=== PATIENT | male | born 1935 | race Caucasian/White ===

== ENCOUNTER 2017-01-22 10:20 | Inpatient (IN) ==
--- NOTE | 2017-01-22 11:36 | History & Physical Report ---
<RichardAlejandrina Annmarie - Last Filed: 01/22/17 14:44> History of Present Illness Date: 01/22/17 Chief complaint: wound infection HPI: Lee Li is being admitted to swing bed status at [facility] for IV abx and PT/OT. Lee is an 81 y/o male who underwent transforaminal lumbar interbody fusion of L5-S1 and b/l foraminotomy of L3-L4 on 11/19/[address] Bryson. From there he went to rehab and was discharged on 12/10/16. He developed fevers and increased back pain around 12/12/16, and was admitted overnight and discharged without need of further management. He was found to have a draining seroma at the incision site on 12/22/16 and was taken back to the OR suite on 12/23/16. Cultures were negative at that time, but after several days reportedly grew out Enterococcus, which was overlooked according to Mireille, Lee's daughter/DPOA. After this admission, he was discharged back to his facility, until he developed fevers/ chills again around 01/11/17, and was admitted to [facility]. Per Mireille, he was in septic shock. He was diagnosed with E. faecalis septicemia d/t lumbar spine wound (infected seroma). CX + for coag neg staph also. He did not go back to the OR for debridement. Right sided PICC was placed for abx. Initially placed on Zosyn + vanco, as sensitivities were reported abx were changed per ID to Rocephin + Vanco for a 4-week course. He had fluid overload secondary to sepsis and hypoalbuminemia, and per Mireille was diuresed and also was given IV albumin. He's developed a "raspy voice" for the last few days , and was apparently evaluated by ENT while in [facility] - no concerning diagnosis was given. He denies any oral sores/dysphagia. He notes development of a mild erythemic rash to his face/forehead, typical of his RA, for which he takes Prednisone daily. He's had constipation and after getting Lactulose in [facility] on 01/21 had multiple BM. However, he's still bloated. He has been seeing improvement with therapy, but right hip pain is a limiting factor. 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 He denies any paresthesias. His back incision has healed well. He otherwise has seen marked improvement since abx were started. F/C have resolved, weakness is improving. Daughter describes encephalopathy, and this for the most part has resolved. However, she states that Percocet, MSO4, and Tramadol cause confusion (but he tolerates [place] well). He denies cough/congestion/dyspnea. No chest pain or abdominal pain. Denies dysuria, frequency, or incontinence. Review of Systems Comprehensive ROS: completed and no additional positive findings except those as stated - Constitutional Constitutional: Present: as per HPI - EENMT Nose: Present: as per HPI Mouth/Throat: Present: as per HPI - Cardiovascular Rhythm: Present: regular rhythm (pacemaker) - Respiratory Respiratory: Present: as per HPI - Gastrointestinal Gastrointestinal: Present: as per HPI - Genitourinary Genitourinary: Present: as per HPI - Musculoskeletal Musculoskeletal: Present: as per HPI - Neurological Neurological: Present: as per HPI - Psychiatric Psychiatric: Present: as per HPI - Hematologic/Lymphatic Hematologic/Lymphatic: Present: easy bleeding (on Xarelto) - Allergic/Immunologic Allergic/Immunologic: Present: seasonal rhinorrhea PFSH Sepsis secondary to Enterococcus septicemia s/p lumbar surgical wound infection RA - immunocompromised on chronic steroids Atrial fibrillation, anticoagulated on Xarelto Chronic HFpEF CAD PAD Sick Sinus Syndrome - PPM HTN Hypothyroidism Depression & anxiety COPD MATT on CPAP Surgical History: Rotator cuff repair. small bowel resection. Permanent pacemaker implant. transforaminal lumbar interbody fusion of L5-S1 and b/l foraminotomy of L3-L4 on 11/19/[address] Bryson. 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) Household members: spouse () Social history: Immunization -Pneumovax 23 in 2017 Medications Home Medications Medication Instructions Recorded Confirmed Type Albuterol/Ipratropium [Duoneb] 1 unit AEROSOL Q4H PRN 01/22/17 01/22/17 History Amlodipine [Norvasc] 1 tab PO BID 01/22/17 01/22/17 History Ascorbate Calcium [Calcium 1 gm PO DAILY 01/22/17 01/22/17 History Ascorbate] Aspirin 1 tab PO DAILY 01/22/17 01/22/17 History Budesonide 0.5 mg IH BID 01/22/17 01/22/17 History Ceftriaxone [Rocephin] 1 gram IV DAILY 01/22/17 01/22/17 History Cyanocobalamin/Folic AC/Vit B6 [B 1 each PO DAILY 01/22/17 01/22/17 History Complex-Folic Acid Tablet] Famotidine [Pepcid] 1 tab PO HS 01/22/17 01/22/17 History Fluticasone Nasal [place] [Flonase] 2 spray EA NOSTRIL DAILY 01/22/17 01/22/17 History Furosemide [Lasix] 1 tab PO DAILY 01/22/17 01/22/17 History Gabapentin [Neurontin] 100 mg PO TID 01/22/17 01/22/17 History Hydrocodone/APAP 5/325 [[place] 0.5 - 1 tab PO Q6H PRN MDD 4 01/22/17 01/22/17 History 5/325] tablets Iron Polysaccharide Complex 1 cap PO DAILY 01/22/17 01/22/17 History [Niferex] Levothyroxine Tab [Synthroid] 125 mcg PO ACB 01/22/17 01/22/17 History Magnesium Oxide [Magnesium] 1 tab PO DAILY 01/22/17 01/22/17 History Metoprolol Tartrate [Lopressor] 25 mg PO BIDWM 01/22/17 01/22/17 History PredniSONE [Deltasone] 1 tab PO 3XW 01/22/17 01/22/17 History PredniSONE [Deltasone] 7.5 mg PO 4XW 01/22/17 01/22/17 History Quetiapine [Seroquel] 1.5 tab PO HS 01/22/17 01/22/17 History Rivaroxaban [Xarelto] 20 mg PO WS 01/22/17 01/22/17 History Sertraline [Zoloft] 1.5 tab PO HS 01/22/17 01/22/17 History Timolol 0.5% Eye Drops [Timoptic 1 drop EACH EYE DAILY 01/22/17 01/22/17 History 0.5% Eye Drops] Vancomycin 750 mg/250 ml-D5w 750 mg IV DAILY 01/22/17 01/22/17 History Allergies Allergy/AdvReac Type Severity Reaction Status Date / Time haloperidol [From Haldol] AdvReac Difficulty Verified 01/22/17 14:35 Breathing morphine AdvReac Difficulty Verified 01/22/17 14:35 Breathing oxycodone [From Percocet] AdvReac Hypotension Verified 01/22/17 14:35 tramadol AdvReac Confusion Verified 01/22/17 14:35 Exam Height: 1.68 m Weight: 71.5 kg - Constitutional Present: no acute distress, well nourished, well developed, thin - Routine HEENT Exam Head: Present: normocephalic Eye: Present: PERRL. Absent: conjunctival icterus, scleral injection ENT: Present: mucous membranes moist, oropharynx clear (poss early thrush on tongue), nares patent - Routine Neck Exam Present: supple, trachea midline. Absent: lymphadenopathy - Routine Respiratory Exam Present: crackles (bibasilar - faint) - Routine Cardiovascular Exam Present: RRR, S1, S2 Comments: pacemaker - Routine Abdominal Exam Present: normoactive bowel sounds, non tender, distended - Routine Extremities Exam Present: no edema, pulses intact, normal capillary refill Comments: aracelis [place] b/l - Routine Back/Spine/Pelvis Exam Back image: 1 - back incision - healing well, closed, no drainage, no erythema, no warmth - Routine Skin Exam Present: intact, dry, warm, rash (faint erythemic rash to face) - Routine Neurological Exam Present: alert, oriented X3, motor deficit (left foot is weaker compared to right), vision grossly intact, hearing grossly intact, normal speech. Absent: sensory deficit, altered mental status - Routine Psychiatric Exam Present: normal affect, normal thought process, cooperative, good insight, good judgment Results - Labs CBC & Chem 7: 01/22/17 14:05 Assessment and Plan (1) Enterococcus faecalis infection Current visit: Yes Status: Acute DVT Prophylaxis: Xarelto Resuscitation Status: Full Code Assessment and Plan: ASSESSMENT/PLAN Admit - swing bed status for IV ceftriaxone and vancomycin through 02/11; PT/OT. Sepsis secondary to Enterococcus septicemia s/p lumbar surgical wound infection -seen by Dr. Vaughan at [facility] -ceftriaxone 1 gm q24 hrs (started 01/13); vancomycin 750 mg (started 01/15) - cont through 02/11. Right PICC. -PABLO showed no vegetation -request latest labs from [facility] -consult PT/OT -wound care not necessary Constipation with abdominal distention -improving per report -continue bowel motivation Possible thrush -high risk d/t prednisone, neb treatments, and abx -start Nystatin QID Chronic HFpEF, CAD, PAD, HTN, HLD -required extra diuresis at [facility] -daily weights and measure I&O -request PABLO report -furosemide 80 mg bid -spironolactone 50 mg daily -Metoprolol, amlodipine -Diet - no added salt, low fat, low cholesterol Atrial fibrillation/SSS -anticoagulated on Xarelto -continue BB -PPM Rheumatoid arthritis -immunocompromised on chronic steroids - Prednisone 5 mg MWF & 7.5 mg S,T,Th, Sat -mild erythemic rash to face/forehead -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 anemia -iron started while in [facility] per daughter Depression & anxiety -sertraline Allergic rhinitis -fluticasone Glaucoma -timolol maleate drops Allergies -Percocet, Haldol, Morphine, Tramadol - cause confusion/encephalopathy Advanced directives -daughter Mireille is DPOA -has a Living will -Full code. F/U appts with Dr. Boggs, Dr. Woods and Dr. Bryson will need to be rescheduled after discharge Hospital Course Summary Disclaimer: The visit summary below is not to be considered part of the above Progress Note. Hospital Course: 01/22/17 15:09 ASSESSMENT/PLAN Admit - swing bed status for IV ceftriaxone and vancomycin through 02/11; PT/OT. Sepsis secondary to Enterococcus septicemia s/p lumbar surgical wound infection -seen by Dr. Vaughan at [facility] -ceftriaxone 1 gm q24 hrs (started 01/13); vancomycin 750 mg (started 01/15) - cont through 02/11. Right PICC. -PABLO showed no vegetation -request latest labs from [facility] -consult PT/OT -wound care not necessary Constipation with abdominal distention -improving per report -continue bowel motivation Possible thrush -high risk d/t prednisone, neb treatments, and abx -start Nystatin QID Chronic HFpEF, CAD, PAD, HTN, HLD -required extra diuresis at [facility] -daily weights and measure I&O -request PABLO report -furosemide 80 mg bid -spironolactone 50 mg daily -Metoprolol, amlodipine -Diet - no added salt, low fat, low cholesterol Atrial fibrillation/SSS -anticoagulated on Xarelto -continue BB -PPM Rheumatoid arthritis -immunocompromised on chronic steroids - Prednisone 5 mg MWF & 7.5 mg S,T,Th, Sat -mild erythemic rash to face/forehead -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 anemia -iron started while in [facility] per daughter Depression & anxiety -sertraline Allergic rhinitis -fluticasone Glaucoma -timolol maleate drops Allergies -Percocet, Haldol, Morphine, Tramadol - cause confusion/encephalopathy Advanced directives -daughter Mireille is DPOA -has a Living will -Full code. F/U appts with Dr. Boggs, Dr. Woods and Dr. 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 Transient Ischemic Attacks ( Yes: 12 YEARS AGO TIA) Cataracts Yes: BOTH EYES Glaucoma Yes: BOTH EYES Hearing Loss Yes Macular Degeneration Yes: RIGHT EYE Cardiac Arrhythmia Yes: A-FIB Hypertension Yes Chronic Obstructive Pulmonary Yes Disease (COPD) Pneumonia Yes Pulmonary Edema Yes Sleep Apnea Yes Gastroesophageal Reflux Yes Disease Obstructive Bowel Yes Hx Renal Disease Yes: MILD STAGE II Anemia Yes Clotting Problems Yes Osteoarthritis Yes Sepsis Yes: HISTORY Anesthesia Reactions Yes: ENCEPHALOPATHY Exam Vital Signs: Pulse Rate 79 01/22/17 14:36 Respiratory Rate 16 01/22/17 14:36 Blood Pressure 137/80 01/22/17 14:36 Pulse Oximetry 99 01/22/17 14:36 Oxygen Delivery Method Room Air Height: 1.68 m Weight: 71.5 kg Results - Labs CBC & Chem 7: 01/22/17 14:05 Assessment and Plan (1) Enterococcus faecalis infection Current visit: Yes Status: Acute Assessment and Plan: 01/22/2017-I reviewed this chart, the patient history, and the [employer]'s/PA's documented findings as above. We discussed and formulated the assessment and plan as above with the additions below. I've seen and examined the patient independently-Dr. Toledo Patient was seen today accompanied by his daughter. He states he feels like he has been getting better after treatment with IV antibiotics. He describes recent problems with right hip pain which was evaluated by an orthopedic surgeon this past week at the [facility] and thought to be greater trochanteric bursitis. They have been treating with ionto-therapy with physical therapy. We will see if that is something we are able to continue here at [facility]. The patient states that it has been helping. He denies any other complaints other than some recent constipation which has resolved and some recent gas bloating which has resolved. He denies any shortness of breath, headache, chest pain, abdominal pain. He denies any vomiting or diarrhea. He states he has been getting up and walking with a walker and assistance. On exam he is alert and oriented 3 and in no acute distress. Chest is clear to auscultation. Cardiovascular reveals a regular rate and rhythm. Abdomen is soft , mildly distended, nontender, with positive bowel sounds. Extremities are free of edema. Lab on 01/19/2017 at the [facility] showed potassium of 3.4, glucose 156, BUN 42, creatinine 1.34, hemoglobin 9.4, hematocrit 28.4 Continue vancomycin and Rocephin as recommended by Dr. Vaughan for infected seroma with enterococcus for callus and coag-negative staph. Check CBC with differential, CMP and C-reactive protein today. Continue PT and OT. We'll consult Dr. Cabrera to see the patient on Wednesday for infectious disease follow-up. Hospital Course Summary Disclaimer: The visit summary below is not to be considered part of the above Progress Note.
[2017-01-22] MEDS ORDERED: ACETAMINOPHEN 325 MG TABLET PO PRN (12:01)
[2017-01-22] MEDS ORDERED: SENNOSIDES 8.6 MG TABLET PO PRN (12:01)
[2017-01-22] MEDS ORDERED: ONDANSETRON 4 MG/2 ML INJECTION IVP PRN (12:01)
[2017-01-22] MEDS ORDERED: HYDROCODONE/APAP 5mg/325mg TABLET PO PRN (12:01)
[2017-01-22 14:11] VITALS: BMI 25.4
[2017-01-22] MEDS ORDERED: FALL RISK - PHARMACY CONSULT MC PRN (14:46)
[2017-01-22] MEDS: NYSTATIN 500,000 units/5 ml ORAL LIQUID PO SCH ×3 (15:45→21:29)
[2017-01-22] MEDS: GABAPENTIN 100 MG CAPSULE PO SCH ×2 (15:45→21:29)
--- NOTE | 2017-01-22 15:54 | Pharmacy Consult-Antibiotics ---
Pharmacy Consult-Vancomycin - Laboratory Information Creatinine 1.5 MG/DL (0.8-1.5) 01/22/17 14:05 VANCOMYCIN CONSULT: Dx: Sepsis @nd to Enterococcus septicemia s/p lumbar surgical wound infection. Current Renal Fx: Serum Creatinine = 1.5 mg/dl. Estimated Creatinine Clearance ~ 36 mL/min. I started Vancomycin 1,250 mg IV q24hrs today. The computer model indicated that the 750 mg iv every 24 hours was underdosing. the pharmacy will continue to monitor the vancomycin troughs and the renal function and will adjust the vancomycin as needed. Thanks for the Vancomycin Protocol, Mj Garcia, Pharmacist.
[2017-01-22] MEDS: RIVAROXABAN 20 MG TABLET PO SCH (17:48)
[2017-01-22] MEDS: ALBUTEROL/IPRATROPIUM 2.5mg-0.5mg/3ml NEB AEROSOL PRN (19:15)
[2017-01-22] MEDS: BUDESONIDE INH.SOLN 0.5mg/2ml NEB IH SCH (19:16)
[2017-01-22] MEDS: QUETIAPINE 25 MG TABLET PO SCH (21:29)
[2017-01-22] MEDS: FAMOTIDINE 20 MG TABLET PO SCH (21:29)
[2017-01-22] MEDS: AMLODIPINE 5 MG TABLET PO SCH (21:29)
[2017-01-22] MEDS: SENNOSIDES 8.6 MG TABLET PO SCH (21:29)
[2017-01-22] MEDS: SERTRALINE 50 MG TABLET PO SCH (21:30)
[2017-01-23] MEDS: LEVOTHYROXINE 125 MCG TABLET PO SCH (06:29)
--- NOTE | 2017-01-23 07:47 | Pharmacy Consult-Antibiotics ---
Pharmacy Consult-Vancomycin - Laboratory Information WBC 4.8 T/MM3 (4.5-11.0) 01/23/17 04:21 BUN 55.0 MG/DL (9-20) H* 01/23/17 04:21 Creatinine 1.2 MG/DL (0.8-1.5) D 01/23/17 04:21 VANCOMYCIN SHORT REVIEW: Today's Serum Cr = 1.2 mg/dL. Calculated Creatinine Cl = 45 mL/min I will change the Vancomycin to 1,500 mg IV Q24hrs to achieve a trough around 15 mcg/mL. The patient has sepsis 2nd to Enterococcus septicemia s/p lumbar surgical wound infection. The pharmacy will continue to monitor the vancomycin troughs and the renal function and will adjust the vancomycin as needed. Thanks for the Vancomycin Protocol, Mj Garcia, Pharmacist.
[2017-01-23] MEDS: FUROSEMIDE 20 MG TABLET PO SCH (10:18)
[2017-01-23] MEDS: MAGNESIUM OXIDE 400 MG TABLET PO SCH (10:18)
[2017-01-23] MEDS: GABAPENTIN 100 MG CAPSULE PO SCH ×3 (10:18→22:06)
[2017-01-23] MEDS: FOLBIC TABLET PO SCH (10:19)
[2017-01-23] MEDS: AMLODIPINE 5 MG TABLET PO SCH ×2 (10:19→22:06)
[2017-01-23] MEDS: ASCORBIC ACID 500 MG TABLET PO SCH (10:19)
[2017-01-23] MEDS: PredniSONE 5 MG TABLET PO SCH (10:19)
[2017-01-23] MEDS: HYDROCODONE/APAP 5mg/325mg TABLET PO PRN ×2 (10:19→15:47)
[2017-01-23] MEDS: FLUTICASONE NASAL SPRAY 50mcg EA NOSTRIL SCH (10:20)
[2017-01-23] MEDS: ASPIRIN 81 MG CHEWABLE TABLET PO SCH (10:20)
[2017-01-23] MEDS: POLYETHYL GLYCOL 3350 17gm PACKET PO SCH (10:22)
[2017-01-23] MEDS: TIMOLOL 0.5% EYE DROPS 5 ML EACH EYE SCH (10:22)
[2017-01-23] MEDS: CEFTRIAXONE 1 G in NS 100 ML IV SCH (10:22)
[2017-01-23] MEDS: NYSTATIN 500,000 units/5 ml ORAL LIQUID PO SCH ×4 (10:22→22:06)
[2017-01-23] MEDS: IRON POLYSACCHARIDE COMPLEX 150 MG CAPSULE PO SCH (10:34)
--- NOTE | 2017-01-23 11:58 | Progress Note ---
Subjective: Feeling okay today, resting comfortably this morning in bed with resting on cot. No acute overnight events per nursing. Objective Vital signs: Temperature 96.5 F L 01/23/17 08:00 Pulse Rate 80 01/23/17 08:00 Respiratory Rate 18 01/23/17 10:53 Blood Pressure 147/82 H 01/23/17 08:00 Pulse Oximetry 100 01/23/17 10:53 Oxygen Delivery Method Room Air Height: 1.68 m Weight: 71.5 kg Body Mass Index: 25.4 - Constitutional Present: no acute distress, well nourished, well developed - Routine HEENT Exam Head: Present: normocephalic, atraumatic Eye: Present: EOMI, PERRL. Absent: conjunctival icterus ENT: Present: mucous membranes moist, oropharynx clear - Routine Respiratory Exam Present: CTA bilaterally. Absent: accessory muscle use, respiratory distress - Routine Cardiovascular Exam Present: RRR. Absent: murmur - Routine Abdominal Exam Present: soft, non distended, non tender - Routine Extremities Exam Present: non tender. Absent: edema - Routine Skin Exam Present: intact, dry. Absent: rash - Routine Neurological Exam Present: alert, oriented X3 - Routine Psychiatric Exam Present: normal affect Results - Labs CBC & Chem 7: 01/23/17 04:21 01/23/17 04:21 Assessment and Plan DVT Prophylaxis: Xarelto Resuscitation Status: Full Code Assessment and Plan: 01/23/2017--[place] Impression: S/P laminectomy with infected seroma and sepsis requiring IV antibiotic therapy --> cultures with enterococcus faecalis and coag negative staph --> currently on vancomycin and rocephin, Dr. Vaughan has been seeing for ID previously --> PABLO negative Right hip pain attributed to trochanteric bursitis with recent ortho evaluation Hypercalcemia, Ca 10.2 CKD presumably, cr 1.2 today, unclear renal baseline (was 1.5 no admission here) CAD per history, asymptomatic currently Afib, paroxysmal, rate controlled and AC with xarelto Normocytic anemia, likely ACD as well as iron deficiency, with stable Hb 10.5, on po iron Chronic steroid use on prednisone 7.5 mg/5 mg alternating days, history of RA Chronic constipation, improved Depression and anxiety, controlled on sertraline Hypothyroidism, stable on synthroid therapy Plan/Recommendations: Continue current antibiotic therapy and monitor WBC, intermittent CRP Hold low dose lasix and monitor volume status, BUN, calcium Continue home medications for afib, RA, CAD as ordered Renal panel, CBC in AM tomorrow for surveillance Continue vanco/rocephin as ordered and monitor vanco levels Continue home medications as above for chronic conditions Plan to consult Dr. Cabrera for ID opinion and surveillance on Wednesday Discussed with bedside RN and family. Sepsis Assessment - Evaluation Sepsis screening result: No Definite Risk Hospital Course Summary Disclaimer: The visit summary below is not to be considered part of the above Progress Note. Hospital Course: 01/22/17 15:09 ASSESSMENT/PLAN Admit - swing bed status for IV ceftriaxone and vancomycin through 02/11; PT/OT. Sepsis secondary to Enterococcus septicemia s/p lumbar surgical wound infection -seen by Dr. Vaughan at [facility] -ceftriaxone 1 gm q24 hrs (started 01/13); vancomycin 750 mg (started 01/15) - cont through 02/11. Right PICC. -PABLO showed no vegetation -request latest labs from [facility] -consult PT/OT -wound care not necessary Constipation with abdominal distention -improving per report -continue bowel motivation Possible thrush -high risk d/t prednisone, neb treatments, and abx -start Nystatin QID Chronic HFpEF, CAD, PAD, HTN, HLD -required extra diuresis at [facility] -daily weights and measure I&O -request PABLO report -furosemide 80 mg bid -spironolactone 50 mg daily -Metoprolol, amlodipine -Diet - no added salt, low fat, low cholesterol Atrial fibrillation/SSS -anticoagulated on Xarelto -continue BB -PPM Rheumatoid arthritis -immunocompromised on chronic steroids - Prednisone 5 mg MWF & 7.5 mg S,T,Th, Sat -mild erythemic rash to face/forehead -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 anemia -iron started while in [facility] per daughter Depression & anxiety -sertraline Allergic rhinitis -fluticasone Glaucoma -timolol maleate drops Allergies -Percocet, Haldol, Morphine, Tramadol - cause confusion/encephalopathy Advanced directives -daughter Mireille is DPOA -has a Living will -Full code. F/U appts with Dr. Boggs, Dr. Woods and Dr. Bryson will need to be rescheduled after discharge 01/23/17 [place] Impression: S/P laminectomy with infected seroma and sepsis requiring IV antibiotic therapy --> cultures with enterococcus faecalis and coag negative staph --> currently on vancomycin and rocephin, Dr. Vaughan has been seeing for ID previously --> PABLO negative Right hip pain attributed to trochanteric bursitis with recent ortho evaluation Hypercalcemia, Ca 10.2 CKD presumably, cr 1.2 today, unclear renal baseline (was 1.5 no admission here) CAD per history, asymptomatic currently Afib, paroxysmal, rate controlled and AC with xarelto Normocytic anemia, likely ACD as well as iron deficiency, with stable Hb 10.5, on po iron Chronic steroid use on prednisone 7.5 mg/5 mg alternating days, history of RA Chronic constipation, improved Depression and anxiety, controlled on sertraline Hypothyroidism, stable on synthroid therapy Plan/Recommendations: Continue current antibiotic therapy and monitor WBC, intermittent CRP Hold low dose lasix and monitor volume status, BUN, calcium Continue home medications for afib, RA, CAD as ordered Renal panel, CBC in AM tomorrow for surveillance Continue vanco/rocephin as ordered and monitor vanco levels Continue home medications as above for chronic conditions Plan to consult Dr. Cabrera for ID opinion and surveillance on Wednesday
[2017-01-23] MEDS: BUDESONIDE INH.SOLN 0.5mg/2ml NEB IH SCH ×2 (14:03→19:26)
[2017-01-23] MEDS ORDERED: SODIUM CHLORIDE 5% EYE DROP 15ml EACH EYE PRN (17:12)
[2017-01-23] MEDS: RIVAROXABAN 20 MG TABLET PO SCH (17:27)
[2017-01-23] MEDS: ALBUTEROL/IPRATROPIUM 2.5mg-0.5mg/3ml NEB AEROSOL PRN (19:26)
[2017-01-23] MEDS: SERTRALINE 50 MG TABLET PO SCH (22:06)
[2017-01-23] MEDS: SENNOSIDES 8.6 MG TABLET PO SCH (22:07)
[2017-01-23] MEDS: QUETIAPINE 25 MG TABLET PO SCH (22:07)
[2017-01-23] MEDS: FAMOTIDINE 20 MG TABLET PO SCH (22:08)
[2017-01-24] MEDS: LEVOTHYROXINE 125 MCG TABLET PO SCH (05:51)
[2017-01-24] MEDS: IRON POLYSACCHARIDE COMPLEX 150 MG CAPSULE PO SCH (09:11)
[2017-01-24] MEDS: MAGNESIUM OXIDE 400 MG TABLET PO SCH (09:11)
[2017-01-24] MEDS: PredniSONE 5 MG TABLET PO SCH (09:11)
[2017-01-24] MEDS: FOLBIC TABLET PO SCH (09:11)
[2017-01-24] MEDS: AMLODIPINE 5 MG TABLET PO SCH ×2 (09:12→21:05)
[2017-01-24] MEDS: ASPIRIN 81 MG CHEWABLE TABLET PO SCH (09:12)
[2017-01-24] MEDS: GABAPENTIN 100 MG CAPSULE PO SCH ×3 (09:12→21:05)
[2017-01-24] MEDS: ASCORBIC ACID 500 MG TABLET PO SCH (09:12)
[2017-01-24] MEDS: CEFTRIAXONE 1 G in NS 100 ML IV SCH (09:13)
[2017-01-24] MEDS: NYSTATIN 500,000 units/5 ml ORAL LIQUID PO SCH ×4 (09:13→21:08)
[2017-01-24] MEDS: POLYETHYL GLYCOL 3350 17gm PACKET PO SCH (09:14)
[2017-01-24] MEDS: TIMOLOL 0.5% EYE DROPS 5 ML EACH EYE SCH (09:14)
[2017-01-24] MEDS: FLUTICASONE NASAL SPRAY 50mcg EA NOSTRIL SCH (09:14)
[2017-01-24] MEDS: FUROSEMIDE 20 MG TABLET PO SCH (09:17)
[2017-01-24] MEDS: HYDROCODONE/APAP 5mg/325mg TABLET PO PRN (10:23)
[2017-01-24] MEDS: ALBUTEROL/IPRATROPIUM 2.5mg-0.5mg/3ml NEB AEROSOL PRN ×2 (11:11→18:46)
[2017-01-24] MEDS: BUDESONIDE INH.SOLN 0.5mg/2ml NEB IH SCH ×2 (11:11→18:46)
--- NOTE | 2017-01-24 11:26 | Progress Note ---
<Alejandrina Ramos - Last Filed: 01/24/17 11:23> Subjective: Lee is doing well. He denies any new complaints. His daughter, Mireille, has been spending the nights with him. She has no concerns either, but added that she doesn't think he drinks enough fluids. He has ongoing right hip pain, and they' re waiting to hear if we can provide iontophoresis. Constipation has resolved. Denies seeing any blood in his stools, no melena, no hematemesis. Objective Vital signs: Temperature 95.6 F L 01/24/17 08:00 Pulse Rate 79 01/24/17 08:00 Respiratory Rate 16 01/24/17 08:00 Blood Pressure 136/76 01/24/17 08:00 Pulse Oximetry 98 01/24/17 08:00 Oxygen Delivery Method Room Air Oxygen Flow Rate 1 Weight: 71.7 kg - Constitutional Present: no acute distress, well nourished, well developed, thin - Routine HEENT Exam ENT: Present: mucous membranes moist, oropharynx clear - Routine Respiratory Exam Present: CTA bilaterally - Routine Cardiovascular Exam Present: RRR, S1, S2 - Routine Abdominal Exam Present: soft, normoactive bowel sounds, non tender, distended (minimal - improved) - Routine Extremities Exam Present: no edema, pulses intact, normal capillary refill - Routine Musculoskeletal Exam Musculoskeletal: Present: no erythema - Routine Skin Exam Present: intact, dry, warm - Routine Neurological Exam Present: alert, oriented X3, CN II-XII intact - Routine Psychiatric Exam Present: normal affect, normal thought process, cooperative Results - Labs CBC & Chem 7: 01/24/17 04:38 01/24/17 04:38 Assessment and Plan Assessment and Plan: 01/23/2017--[place] Impression: S/P laminectomy with infected seroma and sepsis requiring IV antibiotic therapy --> cultures with enterococcus faecalis and coag negative staph --> currently on vancomycin and Rocephin, Dr. Vaughan has been seeing for ID previously --> PABLO negative Right hip pain attributed to trochanteric bursitis with recent ortho evaluation Hypercalcemia CKD presumably, unclear renal baseline (was 1.5 on admission here) CAD per history, asymptomatic currently Afib, paroxysmal, rate controlled and AC with xarelto Macrocytic anemia, likely ACD as well as iron deficiency, with stable Hb, on po iron Chronic steroid use on prednisone 7.5 mg/5 mg alternating days, history of RA Chronic constipation, improved Depression and anxiety, controlled on sertraline Hypothyroidism, stable on Synthroid therapy Plan/Recommendations: Continue Vanc and Rocephin through 02/11/17 Elevated BUN (sl improvement from yesterday) - continue to hold Lasix; encourage oral. No evidence for GI bleed that could potentially explain inc in BUN. Calcium 10 - sl improved Macrocytic anemia - check B12 & folate Plan to consult Dr. Cabrera on Wednesday Sepsis Assessment - Evaluation Sepsis screening result: No Definite Risk Hospital Course Summary Disclaimer: The visit summary below is not to be considered part of the above Progress Note. Hospital Course: 01/22/17 ASSESSMENT/PLAN Admit - swing bed status for IV ceftriaxone and vancomycin through 02/11; PT/OT. Sepsis secondary to Enterococcus septicemia s/p lumbar surgical wound infection -seen by Dr. Vaughan at [facility] -ceftriaxone 1 gm q24 hrs (started 01/13); vancomycin 750 mg (started 01/15) - cont through 02/11. Right PICC. -PABLO showed no vegetation -request latest labs from [facility] -consult PT/OT -wound care not necessary Constipation with abdominal distention -improving per report -continue bowel motivation Possible thrush -high risk d/t prednisone, neb treatments, and abx -start Nystatin QID Chronic HFpEF, CAD, PAD, HTN, HLD -required extra diuresis at [facility] -daily weights and measure I&O -request PABLO report -furosemide 80 mg bid -spironolactone 50 mg daily -Metoprolol, amlodipine -Diet - no added salt, low fat, low cholesterol Atrial fibrillation/SSS -anticoagulated on Xarelto -continue BB -PPM Rheumatoid arthritis -immunocompromised on chronic steroids - Prednisone 5 mg MWF & 7.5 mg S,T,Th, Sat -mild erythemic rash to face/forehead -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 anemia -iron started while in [facility] per daughter Depression & anxiety -sertraline Allergic rhinitis -fluticasone Glaucoma -timolol maleate drops Allergies -Percocet, Haldol, Morphine, Tramadol - cause confusion/encephalopathy Advanced directives -daughter Mireille is DPOA -has a Living will -Full code. F/U appts with Dr. Boggs, Dr. Woods and Dr. Bryson will need to be rescheduled after discharge 01/23/17 [place] S/P laminectomy with infected seroma and sepsis requiring IV antibiotic therapy --> cultures with enterococcus faecalis and coag negative staph --> currently on vancomycin and rocephin, Dr. Vaughan has been seeing for ID previously --> PABLO negative Right hip pain attributed to trochanteric bursitis with recent ortho evaluation Hypercalcemia, Ca 10.2 CKD presumably, cr 1.2 today, unclear renal baseline (was 1.5 no admission here) CAD per history, asymptomatic currently Afib, paroxysmal, rate controlled and AC with xarelto Normocytic anemia, likely ACD as well as iron deficiency, with stable Hb 10.5, on po iron Chronic steroid use on prednisone 7.5 mg/5 mg alternating days, history of RA Chronic constipation, improved Depression and anxiety, controlled on sertraline Hypothyroidism, stable on synthroid therapy Plan/Recommendations: Continue current antibiotic therapy and monitor WBC, intermittent CRP Hold low dose lasix and monitor volume status, BUN, calcium Continue home medications for afib, RA, CAD as ordered Renal panel, CBC in AM tomorrow for surveillance Continue vanco/rocephin as ordered and monitor vanco levels Continue home medications as above for chronic conditions Plan to consult Dr. Cabrera for ID opinion and surveillance on Wednesday01/24/17 Continue Vanc and Rocephin through 02/11/17 Elevated BUN (sl improvement from yesterday) - continue to hold Lasix; encourage oral. No evidence for GI bleed that could potentially explain inc in BUN. Calcium 10 - sl improved Macrocytic anemia - check B12 & folate <Catalina Ochoa - Last Filed: 01/24/17 12:22> Objective Vital signs: Temperature 95.6 F L 01/24/17 08:00 Pulse Rate 79 01/24/17 08:00 Respiratory Rate 16 01/24/17 11:10 Blood Pressure 136/76 01/24/17 08:00 Pulse Oximetry 96 01/24/17 11:10 Oxygen Delivery Method Room Air Oxygen Flow Rate 1 Results - Labs CBC & Chem 7: 01/24/17 04:38 01/24/17 04:38 Assessment and Plan Assessment and Plan: Patient was seen and examined independent of Alejandrina. Feeling well outside of hip pain. His daughter has been staying with him. Labs, vitals, I/Os and orders reviewed in the chart. Agree with holding diuretics and encouraging po intake. Will continue antibiotics and monitor, await Dr. Cabrera' opinion on Wednesday. Hospital Course Summary Disclaimer: The visit summary below is not to be considered part of the above Progress Note.
[2017-01-24] MEDS: RIVAROXABAN 20 MG TABLET PO SCH (16:31)
[2017-01-24] MEDS: SERTRALINE 50 MG TABLET PO SCH (21:05)
[2017-01-24] MEDS: SENNOSIDES 8.6 MG TABLET PO SCH (21:05)
[2017-01-24] MEDS: QUETIAPINE 25 MG TABLET PO SCH (21:06)
[2017-01-24] MEDS: FAMOTIDINE 20 MG TABLET PO SCH (21:08)
[2017-01-25] MEDS: LEVOTHYROXINE 125 MCG TABLET PO SCH (05:45)
--- NOTE | 2017-01-25 09:06 | Infectious Disease Consult ---
Infectious Disease Consult Date of Consultation: 01/25/17 Requesting Physician: Sofie Toledo Reason for Consultation: antibiotic recs History of Present Illness: Mr. Li is an 81 y/o man with a h/o RA on chronic prednisone, and h/o pacemaker placement, who underwent L5-S1 lumbar fusion with bilateral foraminotomy of L3-L4 by Dr. Bryson on 11/19/16. He went to rehab in [place] following that surgery, and was discharged home. He was readmitted to the hospital in [place] 2 days later with fevers and chills. He was discharged home. On 12/22 he was readmitted for draining seroma at the incision site. He was taken to the OR on 12/23 for drainage of the seroma. The culture was thought to be negative, however it grew E. faecalis sensitive to Amp and Vancomycin. There was some growth of CoNs in the broth per records. He was found to have septicemia with a blood culture positive for E. faecalis from . The enterococcus from the blood culture was resistant to ampicillin per records. Blood cultures 01/14 were negative. PABLO was negative. He was started on ceftriaxone on 01/13 and Vancomycin on 01/15. He was seen by Dr. Vaughan in [facility], and his plan was to continue these two antibiotics for 4 weeks, through . The patient's daughter reports that he was very ill for awhile and was hypoxic. His fevers and chills have resolved. He continues to have back pain and R hip pain, but both are mostly present with movement only. He tells me he can't really walk, but his daughter states that he can, with the help of a gait belt and a walker. He currently feels well. Medications Home Medications Medication Instructions Recorded Confirmed Type Albuterol/Ipratropium [Duoneb] 1 unit AEROSOL Q4H PRN 01/22/17 01/22/17 History Amlodipine [Norvasc] 1 tab PO BID 01/22/17 01/22/17 History Ascorbate Calcium [Calcium 1 gm PO DAILY 01/22/17 01/22/17 History Ascorbate] Aspirin 1 tab PO DAILY 01/22/17 01/22/17 History Budesonide 0.5 mg IH BID 01/22/17 01/22/17 History Ceftriaxone [Rocephin] 1 gram IV DAILY 01/22/17 01/22/17 History Cyanocobalamin/Folic AC/Vit B6 [B 1 each PO DAILY 01/22/17 01/22/17 History Complex-Folic Acid Tablet] Famotidine [Pepcid] 1 tab PO HS 01/22/17 01/22/17 History Fluticasone Nasal [place] [Flonase] 2 spray EA NOSTRIL DAILY 01/22/17 01/22/17 History Furosemide [Lasix] 1 tab PO DAILY 01/22/17 01/22/17 History Gabapentin [Neurontin] 100 mg PO TID 01/22/17 01/22/17 History Hydrocodone/APAP 5/325 [[place] 0.5 - 1 tab PO Q6H PRN MDD 4 01/22/17 01/22/17 History 5/325] tablets Iron Polysaccharide Complex 1 cap PO DAILY 01/22/17 01/22/17 History [Niferex] Levothyroxine Tab [Synthroid] 125 mcg PO ACB 01/22/17 01/22/17 History Magnesium Oxide [Magnesium] 1 tab PO DAILY 01/22/17 01/22/17 History Metoprolol Tartrate [Lopressor] 25 mg PO BIDWM 01/22/17 01/22/17 History PredniSONE [Deltasone] 1 tab PO 3XW 01/22/17 01/22/17 History PredniSONE [Deltasone] 7.5 mg PO 4XW 01/22/17 01/22/17 History Quetiapine [Seroquel] 1.5 tab PO HS 01/22/17 01/22/17 History Rivaroxaban [Xarelto] 20 mg PO WS 01/22/17 01/22/17 History Sertraline [Zoloft] 1.5 tab PO HS 01/22/17 01/22/17 History Timolol 0.5% Eye Drops [Timoptic 1 drop EACH EYE DAILY 01/22/17 01/22/17 History 0.5% Eye Drops] Vancomycin 750 mg/250 ml-D5w 750 mg IV DAILY 01/22/17 01/22/17 History Allergies Allergy/AdvReac Type Severity Reaction Status Date / Time haloperidol [From Haldol] AdvReac Difficulty Verified 01/22/17 14:35 Breathing morphine AdvReac Difficulty Verified 01/22/17 14:35 Breathing oxycodone [From Percocet] AdvReac Hypotension Verified 01/22/17 14:35 tramadol AdvReac Confusion Verified 01/22/17 14:35 PFSH Patient Stated Medical History 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 small bowel resection. Permanent pacemaker implant. transforaminal lumbar interbody fusion of L5-S1 and b/l foraminotomy of L3-L4 on 11/19/[address] Bryson, I&D of lumbar incision seroma . Drainage of seroma on 12/23/16 Family History: Mother had heart disease, father had prostate cancer - Social History Smoking status: Former smoker Substance use type: does not use Alcohol intake: former Household members: children (son) Current residence: Assisted Review of Systems - Constitutional Constitutional: Absent: chills, fever(s), headache(s) - EENMT Eyes: Absent: change in vision Mouth/Throat: Absent: sore throat - Cardiovascular Cardiovascular: Absent: chest pain - Respiratory Respiratory: Absent: dyspnea - Gastrointestinal Gastrointestinal: Present: constipation. Absent: abdominal pain, diarrhea, nausea, vomiting - Genitourinary Genitourinary: Absent: dysuria - Musculoskeletal Musculoskeletal: Present: arthralgias (due to RA), back pain - Integumentary/Breasts Integumentary: Absent: rash - Neurological Neurological: Absent: dizziness, headache(s) - Psychiatric Psychiatric: Absent: depression Exam Vital Signs: Temperature 96 F L 01/25/17 07:31 Pulse Rate 79 01/25/17 07:31 Respiratory Rate 20 01/25/17 07:31 Blood Pressure 152/86 H 01/25/17 07:31 Pulse Oximetry 99 01/25/17 07:31 Oxygen Delivery Method CPAP Oxygen Flow Rate 1 Height: 1.68 m Weight: 72.7 kg Body Mass Index: 25.4 - Constitutional Present: no acute distress, well nourished, well developed - Routine HEENT Exam Head: Present: normocephalic, atraumatic Eye: Present: EOMI, PERRL ENT: Present: mucous membranes moist, dentition normal - Routine Neck Exam Present: supple - Routine Respiratory Exam Absent: CTA bilaterally - Routine Cardiovascular Exam Present: RRR. Absent: murmur - Routine Abdominal Exam Present: soft, normoactive bowel sounds, non distended. Absent: tenderness, guarding - Routine Extremities Exam Present: edema (trace edema LLE). Absent: joint swelling - Routine Back/Spine/Pelvis Exam Back/Spine: Absent: erythema Comments: wearing gait belt, lumbar incision appears to be intact - Routine Skin Exam Absent: rash Comments: RUE PICC site ok - Routine Neurological Exam Present: alert, oriented X3, CN II-XII intact - Routine Psychiatric Exam Present: normal affect, normal thought process Results - Labs CBC & Chem 7: 01/25/17 04:19 01/25/17 04:19 - Impressions CT L/S without contrast 01/12 showed postoperative changes, fluid and diffuse strandy changes and several small collections of air which may be post- operative vs infectious. Impression: Sepsis secondary to post-operative lumbar wound infection. Septicemia with E. faecalis, R-ampicillin. PABLO negative. S/p I&D of lumbar wound 12/23/16, wound culture with E. faecalis S-ampicillin, CoNS in broth. S/p L5-S1 lumbar fusion with foraminotomy of L3-4 11/19/[address] Bryson. Rheumatoid arthritis on chronic prednisone. Atrial fibrillation S/p pacemaker. Hypothyroidism. Recommendation: I would recommend continuing with Vancomycin and ceftriaxone through 02/[address] Vaughan. I would also recommend continuing with the Vancomycin through 02/24/17. This would complete a 6-week course which would cover for osteomyelitis/deep post-operative infection with hardware. My recommendations were discussed with the patient, his daughter, and Dr. Gutierrez. Sepsis Assessment - Evaluation Sepsis screening result: No Definite Risk
[2017-01-25] MEDS: ALBUTEROL/IPRATROPIUM 2.5mg-0.5mg/3ml NEB AEROSOL PRN ×2 (09:29→19:20)
[2017-01-25] MEDS: BUDESONIDE INH.SOLN 0.5mg/2ml NEB IH SCH ×2 (09:29→19:20)
[2017-01-25] MEDS: CEFTRIAXONE 1 G in NS 100 ML IV SCH (09:45)
[2017-01-25] MEDS: AMLODIPINE 5 MG TABLET PO SCH ×2 (09:46→22:36)
[2017-01-25] MEDS: GABAPENTIN 100 MG CAPSULE PO SCH ×3 (09:46→22:33)
[2017-01-25] MEDS: FUROSEMIDE 20 MG TABLET PO SCH (09:46)
[2017-01-25] MEDS: FOLBIC TABLET PO SCH (09:46)
[2017-01-25] MEDS: MAGNESIUM OXIDE 400 MG TABLET PO SCH (09:46)
[2017-01-25] MEDS: IRON POLYSACCHARIDE COMPLEX 150 MG CAPSULE PO SCH (09:47)
[2017-01-25] MEDS: NYSTATIN 500,000 units/5 ml ORAL LIQUID PO SCH ×4 (09:47→22:29)
[2017-01-25] MEDS: ASPIRIN 81 MG CHEWABLE TABLET PO SCH (09:52)
[2017-01-25] MEDS: TIMOLOL 0.5% EYE DROPS 5 ML EACH EYE SCH (09:53)
[2017-01-25] MEDS: POLYETHYL GLYCOL 3350 17gm PACKET PO SCH (09:54)
[2017-01-25] MEDS: ASCORBIC ACID 500 MG TABLET PO SCH (09:54)
[2017-01-25] MEDS: PredniSONE 5 MG TABLET PO SCH (09:57)
[2017-01-25] MEDS: FLUTICASONE NASAL SPRAY 50mcg EA NOSTRIL SCH (09:57)
--- NOTE | 2017-01-25 12:26 | Progress Note ---
<Alejandrina Ramos - Last Filed: 01/25/17 13:28> Subjective: Lee has no new complaints. His daughter Mireille is here, as usual. She inquired about speech therapy - she would like them to assess him b/c of his hoarse voice , which actually has been sounding a bit better. His right hip pain is nonexistent when at rest, but quickly becomes severe with PT. Mireille noticed slight confusion yesterday, but hasn't noticed that as much today. Objective Vital signs: Temperature 96 F L 01/25/17 07:31 Pulse Rate 79 01/25/17 07:31 Respiratory Rate 16 01/25/17 09:20 Blood Pressure 152/86 H 01/25/17 07:31 Pulse Oximetry 100 01/25/17 09:20 Oxygen Delivery Method CPAP Oxygen Flow Rate 1 Body Mass Index: 25.4 - Constitutional Present: no acute distress, well nourished, well developed, thin - Routine HEENT Exam Eye: Absent: conjunctival icterus, scleral injection ENT: Present: mucous membranes moist, oropharynx clear Comments: voice is not as hoarse today - Routine Respiratory Exam Present: CTA bilaterally - Routine Abdominal Exam Present: non tender, distended. Absent: normoactive bowel sounds (hypoactive) - Routine Extremities Exam Present: no edema, pulses intact, normal capillary refill - Routine Back/Spine/Pelvis Exam Comments: well healed incision to lumbar - Routine Musculoskeletal Exam Musculoskeletal: Present: other (RA changes to hands) - Routine Skin Exam Present: intact, dry, warm - Routine Neurological Exam Present: alert, oriented X3 - Routine Psychiatric Exam Present: normal affect, normal thought process, cooperative Results - Labs CBC & Chem 7: 01/25/17 04:19 01/25/17 04:19 Assessment and Plan (1) Enterococcus faecalis infection Current visit: Yes Status: Acute DVT Prophylaxis: Xarelto Resuscitation Status: Full Code Assessment and Plan: Assessment Sepsis secondary to Enterococcus septicemia s/p lumbar surgical wound infection FA Chronic HFpEF, CAD, PAD, HTN, HLD A-fib, SSS Constipation Macrocytic anemia - B12, folate nl Plan -ceftriaxone 1 gm q24 hrs (started 01/13); vancomycin 750 mg (started 01/15) - cont through 02/11. CRP declining. -Dr. Cabrera recommending to continue vancomycin for a total of 6 weeks, through . -consult Speech therapy -BUN still elevated but improving - down to 50 - encourage oral fluids. Cont to hold Lasix; monitor for fl overload. -constipation - hypoactive bowel sounds and increasing distention; concern for ileus - start Senna+ & MOM PRN in addition to MiraLAX; add dulc supp PRN. KUB if sx not improving. Sepsis Assessment - Evaluation Sepsis screening result: No Definite Risk Hospital Course Summary Disclaimer: The visit summary below is not to be considered part of the above Progress Note. Hospital Course: 01/22/17 ASSESSMENT/PLAN Admit - swing bed status for IV ceftriaxone and vancomycin through 02/11; PT/OT. Sepsis secondary to Enterococcus septicemia s/p lumbar surgical wound infection -seen by Dr. Vaughan at [facility] -ceftriaxone 1 gm q24 hrs (started 01/13); vancomycin 750 mg (started 01/15) - cont through 02/11. Right PICC. -PABLO showed no vegetation -request latest labs from [facility] -consult PT/OT -wound care not necessary Constipation with abdominal distention -improving per report -continue bowel motivation Possible thrush -high risk d/t prednisone, neb treatments, and abx -start Nystatin QID Chronic HFpEF, CAD, PAD, HTN, HLD -required extra diuresis at [facility] -daily weights and measure I&O -request PABLO report -furosemide 80 mg bid -spironolactone 50 mg daily -Metoprolol, amlodipine -Diet - no added salt, low fat, low cholesterol Atrial fibrillation/SSS -anticoagulated on Xarelto -continue BB -PPM Rheumatoid arthritis -immunocompromised on chronic steroids - Prednisone 5 mg MWF & 7.5 mg S,T,Th, Sat -mild erythemic rash to face/forehead -pneumatic jacketer in [facility] Hypothyroidism -Synthroid 125 mcg daily MATT on CPAP, COPD -has been needing 1L at night -RT nebs; IS Iron def. anemia -iron started while in [facility] per daughter Depression & anxiety -sertraline Allergic rhinitis -fluticasone Glaucoma -timolol maleate drops Allergies -Percocet, Haldol, Morphine, Tramadol - cause confusion/encephalopathy Advanced directives -daughter Mireille is DPOA -has a Living will -Full code. F/U appts with Dr. Boggs, Dr. Woods and Dr. Bryson will need to be rescheduled after discharge 01/23/17 [place] S/P laminectomy with infected seroma and sepsis requiring IV antibiotic therapy --> cultures with enterococcus faecalis and coag negative staph --> currently on vancomycin and rocephin, Dr. Vaughan has been seeing for ID previously --> PABLO negative Right hip pain attributed to trochanteric bursitis with recent ortho evaluation Hypercalcemia, Ca 10.2 CKD presumably, cr 1.2 today, unclear renal baseline (was 1.5 on admission here) CAD per history, asymptomatic currently Afib, paroxysmal, rate controlled and AC with xarelto Normocytic anemia, likely ACD as well as iron deficiency, with stable Hb 10.5, on po iron Chronic steroid use on prednisone 7.5 mg/5 mg alternating days, history of RA Chronic constipation, improved Depression and anxiety, controlled on sertraline Hypothyroidism, stable on synthroid therapy Plan/Recommendations: Continue current antibiotic therapy and monitor WBC, intermittent CRP Hold low dose lasix and monitor volume status, BUN, calcium Continue home medications for afib, RA, CAD as ordered Renal panel, CBC in AM tomorrow for surveillance Continue vanco/rocephin as ordered and monitor vanco levels Continue home medications as above for chronic conditions Plan to consult Dr. Cabrera for ID opinion and surveillance on Wednesday01/24/17 Continue Vanc and Rocephin through 02/11/17 Elevated BUN (sl improvement from yesterday) - continue to hold Lasix; encourage oral. No evidence for GI bleed that could potentially explain inc in BUN. Calcium 10 - sl improved Macrocytic anemia - check B12 & folate 01/25/17 -Dr. Cabrera recommending to continue vancomycin for a total of 6 weeks, through . -consult Speech therapy -BUN still elevated but improving - down to 50 - encourage oral fluids. Cont to hold Lasix; monitor for fl overload. -constipation - hypoactive bowel sounds and increasing distention; concern for ileus - start Senna+ & MOM PRN in addition to MiraLAX; add dulc supp PRN. KUB if sx not improving. <Jero Gutierrez - Last Filed: 01/25/17 16:14> Objective Vital signs: Temperature 98.1 F 01/25/17 15:51 Pulse Rate 76 01/25/17 15:00 Respiratory Rate 20 08/14/17 15:00 Blood Pressure 131/74 01/25/17 15:00 Pulse Oximetry 96 01/25/17 15:00 Oxygen Delivery Method Room Air Oxygen Flow Rate 98 Results - Labs CBC & Chem 7: 01/25/17 04:19 01/25/17 04:19 Assessment and Plan (1) Enterococcus faecalis infection Current visit: Yes Status: Acute Assessment and Plan: Assessment Sepsis secondary to Enterococcus septicemia s/p lumbar surgical wound infection FA Chronic HFpEF, CAD, PAD, HTN, HLD A-fib, SSS Constipation Macrocytic anemia - B12, folate nl Have independently interviewed and examined pt. Chart reviewed. Case discussed with my [employer]. Care plan developed with my supervision; agree with above. Having a good day today. Pain better-able to move more. Feels more encouraged about being able to move. Breathing stable. No chest pressure or pain. Eating well without nausea or reflux. Denies ab pain. Stools slow, but not feeling bloated or crampy. Lungs: clear, no distress on RA CV: regular AB: soft nt, BS decreased. Ext: +1 LE edema MSE: awake alert appropriate Plan: Continue with antibiotics - Dr Cabrera' input much appreciated. Continue with therapy to help improve functional status. Monitor lab. Medically improving slowly. Hospital Course Summary Disclaimer: The visit summary below is not to be considered part of the above Progress Note.
[2017-01-25] MEDS ORDERED: BISACODYL 10 MG SUPPOSITORY RECTALLY PRN (13:49)
[2017-01-25] MEDS: HYDROCODONE/APAP 5mg/325mg TABLET PO PRN ×2 (14:38→22:31)
--- NOTE | 2017-01-25 15:14 | XRay Report ---
Indication: check picc placement PROCEDURE: XR chest 1V: Encounter: Initial Comparison: None Findings: Right PICC line in place with the tip projecting over the superior SVC. Left single lead cardiac pacemaker with a right ventricular lead. Lungs are clear. No pleural effusion or pneumothorax. The cardiac silhouette is mildly enlarged. Pulmonary vascularity and mediastinal contours are within normal limits. Degenerative changes in the shoulders with old right posterior rib fractures. Impression: Right PICC line tip projects over the superior SVC. .
[2017-01-25] MEDS: SALINE FLUSH 10ml SYRINGE IV PRN (15:59)
--- NOTE | 2017-01-25 17:01 | Pharmacy Consult-Antibiotics ---
Pharmacy Consult-Vancomycin - Laboratory Information WBC 4.3 T/MM3 (4.5-11.0) L 01/25/17 04:19 BUN 50.0 MG/DL (9-20) H 01/25/17 04:19 Creatinine 1.3 MG/DL (0.8-1.5) 01/25/17 04:19 Vancomycin Trough 21.41 UG/ML (15-20) H* 01/25/17 15:18 - Consult Information Due to elevated trough will change vancomycin tonight to 1000mg IV q24h at 1999. Will continue to monitor and adjust accordingly. Thank you.
[2017-01-25] MEDS: RIVAROXABAN 20 MG TABLET PO SCH (17:52)
[2017-01-25] MEDS: NS IV SCH (20:33)
[2017-01-25] MEDS: VANCOMYCIN IV SCH (20:33)
[2017-01-25] MEDS: QUETIAPINE 25 MG TABLET PO SCH (22:29)
[2017-01-25] MEDS: FAMOTIDINE 20 MG TABLET PO SCH (22:30)
[2017-01-25] MEDS: SERTRALINE 50 MG TABLET PO SCH (22:30)
[2017-01-25] MEDS: SENNOSIDES 8.6 MG TABLET PO SCH (22:32)
[2017-01-25] MEDS: SENNA + DOCUSATE TABLET PO SCH (22:37)
[2017-01-26] MEDS: LEVOTHYROXINE 125 MCG TABLET PO SCH (06:55)
[2017-01-26] MEDS: BUDESONIDE INH.SOLN 0.5mg/2ml NEB IH SCH ×2 (08:29→19:00)
[2017-01-26] MEDS: ALBUTEROL/IPRATROPIUM 2.5mg-0.5mg/3ml NEB AEROSOL PRN ×2 (08:29→19:00)
[2017-01-26] MEDS: POLYETHYL GLYCOL 3350 17gm PACKET PO SCH (09:26)
[2017-01-26] MEDS: FLUTICASONE NASAL SPRAY 50mcg EA NOSTRIL SCH (09:27)
[2017-01-26] MEDS: SALINE FLUSH 10ml SYRINGE IV PRN ×2 (09:27→09:31)
[2017-01-26] MEDS: FOLBIC TABLET PO SCH (09:27)
[2017-01-26] MEDS: NYSTATIN 500,000 units/5 ml ORAL LIQUID PO SCH ×4 (09:27→21:53)
[2017-01-26] MEDS: TIMOLOL 0.5% EYE DROPS 5 ML EACH EYE SCH (09:27)
[2017-01-26] MEDS: PredniSONE 5 MG TABLET PO SCH (09:27)
[2017-01-26] MEDS: AMLODIPINE 5 MG TABLET PO SCH ×2 (09:28→21:54)
[2017-01-26] MEDS: SENNA + DOCUSATE TABLET PO SCH ×2 (09:28→21:54)
[2017-01-26] MEDS: ASCORBIC ACID 500 MG TABLET PO SCH (09:28)
[2017-01-26] MEDS: HYDROCODONE/APAP 5mg/325mg TABLET PO PRN (09:28)
[2017-01-26] MEDS: ASPIRIN 81 MG CHEWABLE TABLET PO SCH (09:29)
[2017-01-26] MEDS: MAGNESIUM OXIDE 400 MG TABLET PO SCH (09:29)
[2017-01-26] MEDS: CEFTRIAXONE 1 G in NS 100 ML IV SCH (09:29)
[2017-01-26] MEDS: FUROSEMIDE 20 MG TABLET PO SCH (09:29)
[2017-01-26] MEDS: GABAPENTIN 100 MG CAPSULE PO SCH ×3 (09:29→21:55)
[2017-01-26] MEDS: IRON POLYSACCHARIDE COMPLEX 150 MG CAPSULE PO SCH (09:31)
--- NOTE | 2017-01-26 11:33 | Progress Note ---
<Kirstin Rutherford V - Last Filed: 01/26/17 11:18> Subjective: Lee is seen today in follow up with his daughter at his side. He reports he is feeling awful this morning which he attributes to receiving 2 [place]ba tabs last6 evening. This morning he is feeling fatigued and "drugged". Reports back pain is tolerable most of the time. He denies feeling short of breath or having chest pain. No GI complaints. OWLS have been somewhat slow to move difficulty with urination. Objective Vital signs: Temperature 96.6 F L 01/26/17 07:00 Pulse Rate 79 01/26/17 07:00 Respiratory Rate 12 01/26/17 08:27 Blood Pressure 140/75 H 01/26/17 07:00 Pulse Oximetry 99 01/26/17 08:27 Oxygen Delivery Method Nasal Cannula,CPAP Oxygen Flow Rate 2 Weight: 72.7 kg - Constitutional Present: no acute distress, well nourished, well developed - Routine HEENT Exam Eye: Present: EOMI ENT: Present: mucous membranes moist, dentition normal - Routine Respiratory Exam Present: CTA bilaterally. Absent: wheezes - Routine Cardiovascular Exam Present: RRR, S1, S2. Absent: murmur - Routine Abdominal Exam Present: soft, non distended. Absent: normoactive bowel sounds (hypoactive bowel sounds), tenderness - Routine Extremities Exam Present: normal capillary refill - Routine Skin Exam Present: intact, dry, warm - Routine Neurological Exam Present: alert, oriented X3, CN II-XII intact - Routine Lymphatic Exam Lymphatic: Absent: adenopathy - Routine Psychiatric Exam Present: normal affect, normal thought process Results - Labs CBC & Chem 7: 01/26/17 04:07 01/26/17 04:07 Assessment and Plan (1) Enterococcus faecalis infection Current visit: Yes Status: Acute Assessment and Plan: Assessment Sepsis secondary to Enterococcus septicemia s/p lumbar surgical wound infection FA Chronic HFpEF, CAD, PAD, HTN, HLD A-fib, SSS Constipation Macrocytic anemia - B12, folate nl Plan- 01/26 Patient and family did request to decrease medication dose 0.5-1 tab as needed for pain control. He does not feel that there is any time that he would require over 1 tab as pain is overall well controlled. We will continue to work on more aggressive bowel motivation scheduled MiraLAX, senna plus and senna Lax. Continue on IV Rocephin and vancomycin for antimicrobial coverage. It is recommended by Dr. Tequila Cabrera that patient continue Rocephin through 02/11, and vancomycin through 02/24 as this will complete a 6 week course to cover osteomyelitis. Continue to follow daily labs to monitor blood counts, renal function and electrolytes. Encourage patient to work with PT and OT for ongoing postoperative strengthening. Sepsis Assessment - Evaluation Sepsis screening result: No Definite Risk Hospital Course Summary Disclaimer: The visit summary below is not to be considered part of the above Progress Note. Hospital Course: 01/22/17 ASSESSMENT/PLAN Admit - swing bed status for IV ceftriaxone and vancomycin through 02/11; PT/OT. Sepsis secondary to Enterococcus septicemia s/p lumbar surgical wound infection -seen by Dr. Vaughan at [facility] -ceftriaxone 1 gm q24 hrs (started 01/13); vancomycin 750 mg (started 01/15) - cont through 02/11. Right PICC. -PABLO showed no vegetation -request latest labs from [facility] -consult PT/OT -wound care not necessary Constipation with abdominal distention -improving per report -continue bowel motivation Possible thrush -high risk d/t prednisone, neb treatments, and abx -start Nystatin QID Chronic HFpEF, CAD, PAD, HTN, HLD -required extra diuresis at [facility] -daily weights and measure I&O -request PABLO report -furosemide 80 mg bid -spironolactone 50 mg daily -Metoprolol, amlodipine -Diet - no added salt, low fat, low cholesterol Atrial fibrillation/SSS -anticoagulated on Xarelto -continue BB -PPM Rheumatoid arthritis -immunocompromised on chronic steroids - Prednisone 5 mg MWF & 7.5 mg S,T,Th, Sat -mild erythemic rash to face/forehead -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 anemia -iron started while in [facility] per daughter Depression & anxiety -sertraline Allergic rhinitis -fluticasone Glaucoma -timolol maleate drops Allergies -Percocet, Haldol, Morphine, Tramadol - cause confusion/encephalopathy Advanced directives -daughter Mireille is DPOA -has a Living will -Full code. F/U appts with Dr. Boggs, Dr. Woods and Dr. Bryson will need to be rescheduled after discharge 01/23/17 [place] S/P laminectomy with infected seroma and sepsis requiring IV antibiotic therapy --> cultures with enterococcus faecalis and coag negative staph --> currently on vancomycin and rocephin, Dr. Vaughan has been seeing for ID previously --> PABLO negative Right hip pain attributed to trochanteric bursitis with recent ortho evaluation Hypercalcemia, Ca 10.2 CKD presumably, cr 1.2 today, unclear renal baseline (was 1.5 on admission here) CAD per history, asymptomatic currently Afib, paroxysmal, rate controlled and AC with xarelto Normocytic anemia, likely ACD as well as iron deficiency, with stable Hb 10.5, on po iron Chronic steroid use on prednisone 7.5 mg/5 mg alternating days, history of RA Chronic constipation, improved Depression and anxiety, controlled on sertraline Hypothyroidism, stable on synthroid therapy Plan/Recommendations: Continue current antibiotic therapy and monitor WBC, intermittent CRP Hold low dose lasix and monitor volume status, BUN, calcium Continue home medications for afib, RA, CAD as ordered Renal panel, CBC in AM tomorrow for surveillance Continue vanco/rocephin as ordered and monitor vanco levels Continue home medications as above for chronic conditions Plan to consult Dr. Cabrera for ID opinion and surveillance on Wednesday01/24/17 Continue Vanc and Rocephin through 02/11/17 Elevated BUN (sl improvement from yesterday) - continue to hold Lasix; encourage oral. No evidence for GI bleed that could potentially explain inc in BUN. Calcium 10 - sl improved Macrocytic anemia - check B12 & folate 01/25/17 -Dr. Cabrera recommending to continue vancomycin for a total of 6 weeks, through . -consult Speech therapy -BUN still elevated but improving - down to 50 - encourage oral fluids. Cont to hold Lasix; monitor for fl overload. -constipation - hypoactive bowel sounds and increasing distention; concern for ileus - start Senna+ & MOM PRN in addition to MiraLAX; add dulc supp PRN. KUB if sx not improving. Plan- 01/26 Patient and family did request to decrease medication dose 0.5-1 tab as needed for pain control. He does not feel that there is any time that he would require over 1 tab as pain is overall well controlled. We will continue to work on more aggressive bowel motivation scheduled MiraLAX, senna plus and senna Lax. Continue on IV Rocephin and vancomycin for antimicrobial coverage. It is recommended by Dr. Tequila Cabrera that patient continue Rocephin through 02/11, and vancomycin through 02/24 as this will complete a 6 week course to cover osteomyelitis. Continue to follow daily labs to monitor blood counts, renal function and electrolytes. Encourage patient to work with PT and OT for ongoing postoperative strengthening. <Jero Gutierrez - Last Filed: 01/26/17 16:27> Objective Vital signs: Temperature 98 F 01/26/17 15:09 Pulse Rate 80 01/26/17 15:09 Respiratory Rate 16 01/26/17 15:09 Blood Pressure 131/73 01/26/17 15:09 Pulse Oximetry 99 01/26/17 15:09 Oxygen Delivery Method Room Air Oxygen Flow Rate 2 Height/Weight/BMI: Height 1.68 m Weight 72.7 kg Body Mass Index 25.4 Results - Labs CBC & Chem 7: 01/26/17 04:07 01/26/17 04:07 Assessment and Plan (1) Enterococcus faecalis infection Current visit: Yes Status: Acute DVT Prophylaxis: Xarelto Resuscitation Status: Full Code Assessment and Plan: Assessment Sepsis secondary to Enterococcus septicemia s/p lumbar surgical wound infection FA Chronic HFpEF, CAD, PAD, HTN, HLD A-fib, SSS Constipation Macrocytic anemia - B12, folate nl Have independently interviewed and examined pt. Chart reviewed. Case discussed with my SECURITY OFFICERS AND GUARDS. Care plan developed with my supervision; agree with above. Doing better this afternoon. Not as groggy. Pain overall well controlled. Did have small stool. No nausea. Breathing well. Lungs: clear CV: regular AB: soft slight distention, nt. BS present MSE: awake alert appropriate Plan: Continue with Rocephin and vancomycin. Pain medications decreased. Continue bowel medications - encourage use of Dulcolax suppository if stools slow. Continue with therapy to maximize functional status. Hospital Course Summary Disclaimer: The visit summary below is not to be considered part of the above Progress Note.
[2017-01-26] MEDS: RIVAROXABAN 20 MG TABLET PO SCH (18:35)
[2017-01-26] MEDS: VANCOMYCIN IV SCH (20:33)
[2017-01-26] MEDS: NS IV SCH (20:33)
[2017-01-26] MEDS ORDERED: SENNOSIDES 8.6 MG TABLET PO SCH (21:00)
[2017-01-26] MEDS: QUETIAPINE 25 MG TABLET PO SCH (21:54)
[2017-01-26] MEDS: SERTRALINE 50 MG TABLET PO SCH (21:55)
[2017-01-26] MEDS: FAMOTIDINE 20 MG TABLET PO SCH (21:55)
[2017-01-27] MEDS: LEVOTHYROXINE 125 MCG TABLET PO SCH (06:54)
[2017-01-27] MEDS: ALBUTEROL/IPRATROPIUM 2.5mg-0.5mg/3ml NEB AEROSOL PRN ×2 (07:56→19:06)
[2017-01-27] MEDS: BUDESONIDE INH.SOLN 0.5mg/2ml NEB IH SCH ×2 (07:56→19:06)
[2017-01-27] MEDS: QUETIAPINE 25 MG TABLET PO SCH ×4 (08:05→22:13)
--- NOTE | 2017-01-27 08:48 | Progress Note ---
Subjective Date: 01/27/17 Subjective: Mr. Li reports feeling stiff and sore in his back this morning. Denies any other problems. No fevers, chills, N/V or diarrhea. No itching. He's sitting up getting ready to eat breakfast. Exam Vital Signs: Temperature 97.8 F 01/27/17 07:14 Pulse Rate 79 01/27/17 07:14 Respiratory Rate 14 01/27/17 07:50 Blood Pressure 130/71 01/27/17 07:14 Pulse Oximetry 100 01/27/17 07:50 Oxygen Delivery Method Room Air Oxygen Flow Rate 1 Height/Weight/BMI: Height 1.68 m Weight 72.5 kg Body Mass Index 25.4 - Constitutional Present: no acute distress, well nourished, well developed - Routine HEENT Exam Head: Present: normocephalic, atraumatic Eye: Present: EOMI, PERRL ENT: Present: mucous membranes moist, dentition normal - Routine Neck Exam Present: supple - Routine Respiratory Exam Present: CTA bilaterally - Routine Cardiovascular Exam Present: RRR. Absent: murmur - Routine Abdominal Exam Present: soft, normoactive bowel sounds, non distended. Absent: tenderness - Routine Extremities Exam Absent: cyanosis, clubbing, edema - Routine Skin Exam Present: ecchymosis (on arms). Absent: rash Comments: RUE PICC site ok - Routine Neurological Exam Present: alert, oriented X3, CN II-XII intact - Routine Psychiatric Exam Present: normal affect Results - Labs CBC & Chem 7: 01/27/17 04:51 01/27/17 04:51 Impression: Sepsis secondary to post-operative lumbar wound infection. Septicemia with E. faecalis, R-ampicillin. PABLO negative. S/p I&D of lumbar wound 12/23/16, wound culture with E. faecalis S-ampicillin, CoNS in broth. S/p L5-S1 lumbar fusion with foraminotomy of L3-4 11/19/[address] Bryson. Rheumatoid arthritis on chronic prednisone. Atrial fibrillation S/p pacemaker. Hypothyroidism. Mild pancytopenia. Recommendation: I suspect that he is developing pancytopenia secondary to one of his antibiotics. I would watch it for now, but if his WBC and platelets continue to drop, I would stop the ceftriaxone. If his counts don't improve after that, then we might have to change the Vancomycin to another agent. Will plan to continue with IV antibiotics through 02/24/17. This would complete a 6-week course which would cover for osteomyelitis/deep post-operative infection with hardware. Sepsis Assessment - Evaluation Sepsis screening result: No Definite Risk
[2017-01-27] MEDS: FLUTICASONE NASAL SPRAY 50mcg EA NOSTRIL SCH (09:32)
[2017-01-27] MEDS: TIMOLOL 0.5% EYE DROPS 5 ML EACH EYE SCH (09:32)
[2017-01-27] MEDS: CEFTRIAXONE 1 G in NS 100 ML IV SCH (09:32)
[2017-01-27] MEDS: NYSTATIN 500,000 units/5 ml ORAL LIQUID PO SCH ×4 (09:32→21:17)
[2017-01-27] MEDS: POLYETHYL GLYCOL 3350 17gm PACKET PO SCH ×2 (09:32→21:17)
[2017-01-27] MEDS: AMLODIPINE 5 MG TABLET PO SCH ×2 (09:33→21:16)
[2017-01-27] MEDS: HYDROCODONE/APAP 5mg/325mg TABLET PO PRN (09:33)
[2017-01-27] MEDS: FOLBIC TABLET PO SCH (09:33)
[2017-01-27] MEDS: ASCORBIC ACID 500 MG TABLET PO SCH (09:33)
[2017-01-27] MEDS: SENNA + DOCUSATE TABLET PO SCH ×2 (09:33→21:21)
[2017-01-27] MEDS: GABAPENTIN 100 MG CAPSULE PO SCH ×3 (09:34→21:16)
[2017-01-27] MEDS: ASPIRIN 81 MG CHEWABLE TABLET PO SCH (09:34)
[2017-01-27] MEDS: MAGNESIUM OXIDE 400 MG TABLET PO SCH (09:34)
[2017-01-27] MEDS: FUROSEMIDE 20 MG TABLET PO SCH (09:34)
[2017-01-27] MEDS: PredniSONE 5 MG TABLET PO SCH (09:34)
[2017-01-27] MEDS: IRON POLYSACCHARIDE COMPLEX 150 MG CAPSULE PO SCH (09:35)
--- NOTE | 2017-01-27 13:09 | Progress Note ---
<Kirstin Rutherford V - Last Filed: 01/27/17 13:05> Subjective: Lee is seen this morning while finishing breakfast. His daughter is at the bedside. Lee states that overall he is feeling much better today as we did decrease pain medication overnight. He denies having any back pain, and incision is dry without drainage. Abdomen is mildly distended, although he is having bowel movements. Daughter verbalizes her concern for constipation as he has had an ileus in the past. Appetite is good and no difficulty with urination. Objective Vital signs: Temperature 97.8 F 01/27/17 07:14 Pulse Rate 79 01/27/17 07:14 Respiratory Rate 14 01/27/17 07:50 Blood Pressure 130/71 01/27/17 07:14 Pulse Oximetry 100 01/27/17 07:50 Oxygen Delivery Method Room Air Oxygen Flow Rate 1 Height/Weight/BMI: Height 1.68 m Weight 72.5 kg Body Mass Index 25.4 - Constitutional Present: no acute distress, well nourished, well developed - Routine HEENT Exam Head: Present: normocephalic Eye: Present: EOMI, PERRL ENT: Present: mucous membranes moist, dentition normal - Routine Respiratory Exam Present: CTA bilaterally. Absent: wheezes - Routine Cardiovascular Exam Present: RRR, S1, S2. Absent: murmur - Routine Abdominal Exam Present: soft, normoactive bowel sounds, non distended. Absent: tenderness - Routine Extremities Exam Present: no edema, normal capillary refill - Routine Back/Spine/Pelvis Exam Back/Spine: Present: full ROM - Routine Skin Exam Present: intact, dry, warm - Routine Neurological Exam Present: alert, oriented X3, CN II-XII intact - Routine Lymphatic Exam Lymphatic: Absent: adenopathy - Routine Psychiatric Exam Present: normal affect Results - Labs CBC & Chem 7: 01/27/17 04:51 01/27/17 04:51 Assessment and Plan (1) Enterococcus faecalis infection Current visit: Yes Status: Acute Assessment and Plan: Assessment Sepsis secondary to Enterococcus septicemia s/p lumbar surgical wound infection FA Chronic HFpEF, CAD, PAD, HTN, HLD A-fib, SSS Constipation Macrocytic anemia - B12, folate nl 01/27/17- Plan Overall, Lee is doing well. Would like to increase bowel motivation increase MiraLAX to twice a day, increase senna lax 2 twice a day, Use MOM as needed. Continue with IV vancomycin and IV Rocephin for antimicrobial coverage. Appreciate consultation by Dr. Cabrera with her recommendations. Continue with Rocephin through 02/11 and vancomycin through 02/11. Labs have remained stable. Encourage use with PT, OT for strengthening Sepsis Assessment - Evaluation Sepsis screening result: No Definite Risk Hospital Course Summary Disclaimer: The visit summary below is not to be considered part of the above Progress Note. Hospital Course: 01/22/17 ASSESSMENT/PLAN Admit - swing bed status for IV ceftriaxone and vancomycin through 02/11; PT/OT. Sepsis secondary to Enterococcus septicemia s/p lumbar surgical wound infection -seen by Dr. Vaughan at [facility] -ceftriaxone 1 gm q24 hrs (started 01/13); vancomycin 750 mg (started 01/15) - cont through 02/11. Right PICC. -PABLO showed no vegetation -request latest labs from [facility] -consult PT/OT -wound care not necessary Constipation with abdominal distention -improving per report -continue bowel motivation Possible thrush -high risk d/t prednisone, neb treatments, and abx -start Nystatin QID Chronic HFpEF, CAD, PAD, HTN, HLD -required extra diuresis at [facility] -daily weights and measure I&O -request PABLO report -furosemide 80 mg bid -spironolactone 50 mg daily -Metoprolol, amlodipine -Diet - no added salt, low fat, low cholesterol Atrial fibrillation/SSS -anticoagulated on Xarelto -continue BB -PPM Rheumatoid arthritis -immunocompromised on chronic steroids - Prednisone 5 mg MWF & 7.5 mg S,T,Th, Sat -mild erythemic rash to face/forehead -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 anemia -iron started while in [facility] per daughter Depression & anxiety -sertraline Allergic rhinitis -fluticasone Glaucoma -timolol maleate drops Allergies -Percocet, Haldol, Morphine, Tramadol - cause confusion/encephalopathy Advanced directives -daughter Mireille is DPOA -has a Living will -Full code. F/U appts with Dr. Boggs, Dr. Woods and Dr. Bryson will need to be rescheduled after discharge 01/23/17 [place] S/P laminectomy with infected seroma and sepsis requiring IV antibiotic therapy --> cultures with enterococcus faecalis and coag negative staph --> currently on vancomycin and rocephin, Dr. Vaughan has been seeing for ID previously --> PABLO negative Right hip pain attributed to trochanteric bursitis with recent ortho evaluation Hypercalcemia, Ca 10.2 CKD presumably, cr 1.2 today, unclear renal baseline (was 1.5 on admission here) CAD per history, asymptomatic currently Afib, paroxysmal, rate controlled and AC with xarelto Normocytic anemia, likely ACD as well as iron deficiency, with stable Hb 10.5, on po iron Chronic steroid use on prednisone 7.5 mg/5 mg alternating days, history of RA Chronic constipation, improved Depression and anxiety, controlled on sertraline Hypothyroidism, stable on synthroid therapy Plan/Recommendations: Continue current antibiotic therapy and monitor WBC, intermittent CRP Hold low dose lasix and monitor volume status, BUN, calcium Continue home medications for afib, RA, CAD as ordered Renal panel, CBC in AM tomorrow for surveillance Continue vanco/rocephin as ordered and monitor vanco levels Continue home medications as above for chronic conditions Plan to consult Dr. Cabrera for ID opinion and surveillance on Wednesday01/24/17 Continue Vanc and Rocephin through 02/11/17 Elevated BUN (sl improvement from yesterday) - continue to hold Lasix; encourage oral. No evidence for GI bleed that could potentially explain inc in BUN. Calcium 10 - sl improved Macrocytic anemia - check B12 & folate 01/25/17 -Dr. Cabrera recommending to continue vancomycin for a total of 6 weeks, through . -consult Speech therapy -BUN still elevated but improving - down to 50 - encourage oral fluids. Cont to hold Lasix; monitor for fl overload. -constipation - hypoactive bowel sounds and increasing distention; concern for ileus - start Senna+ & MOM PRN in addition to MiraLAX; add dulc supp PRN. KUB if sx not improving. Plan- 01/26 Patient and family did request to decrease medication dose 0.5-1 tab as needed for pain control. He does not feel that there is any time that he would require over 1 tab as pain is overall well controlled. We will continue to work on more aggressive bowel motivation scheduled MiraLAX, senna plus and senna Lax. Continue on IV Rocephin and vancomycin for antimicrobial coverage. It is recommended by Dr. Tequila Cabrera that patient continue Rocephin through 02/11, and vancomycin through 02/24 as this will complete a 6 week course to cover osteomyelitis. Continue to follow daily labs to monitor blood counts, renal function and electrolytes. Encourage patient to work with PT and OT for ongoing postoperative strengthening. 01/27/17- Plan Overall, Lee is doing well. Would like to increase bowel motivation increase MiraLAX to twice a day, increase senna lax 2 twice a day, Use MOM as needed. Continue with IV vancomycin and IV Rocephin for antimicrobial coverage. Appreciate consultation by Dr. Cabrera with her recommendations. Continue with Rocephin through 02/11 and vancomycin through 02/11. <Jero Gutierrez - Last Filed: 01/27/17 15:06> Objective Vital signs: Temperature 97.8 F 01/27/17 07:14 Pulse Rate 79 01/27/17 07:14 Respiratory Rate 14 01/27/17 07:50 Blood Pressure 130/71 01/27/17 07:14 Pulse Oximetry 100 01/27/17 07:50 Oxygen Delivery Method Room Air Oxygen Flow Rate 1 Height/Weight/BMI: Height 1.68 m Weight 72.5 kg Body Mass Index 25.4 Results - Labs CBC & Chem 7: 01/27/17 04:51 01/27/17 04:51 Assessment and Plan (1) Enterococcus faecalis infection Current visit: Yes Status: Acute DVT Prophylaxis: Xarelto Resuscitation Status: Full Code Assessment and Plan: Assessment Sepsis secondary to Enterococcus septicemia s/p lumbar surgical wound infection Rheumatoid Arthritis Chronic HFpEF, CAD, PAD, HTN, HLD A-fib, SSS Constipation Macrocytic anemia - B12, folate nl Have independently interviewed and examined patient. Chart reviewed. Case discussed with my ASSISTANT ENGINEER. Care plan developed with my supervision; agree with above. Doing well today. No f/c. Tolerating therapy-feels is making improvements. Eating well-no nausea or stomatitis. Denies pain with swallowing. Stools still slow. No chest pressure or pain. Breathing well. Lungs: clear, no distress on RA CV: regular AB: soft, distended but not tender, BS present EXT: trace LE edema MSE: awake alert appropriate Plan: Continue antimicrobial therapy. Encourage continued therapy. Bowel medications adjusted. Will recheck lab in am due to anemia and leukopenia - platelets improved. Continue with supportive care. Clinically doing well. Hospital Course Summary Disclaimer: The visit summary below is not to be considered part of the above Progress Note.
[2017-01-27] MEDS ORDERED: FALL RISK - PHARMACY CONSULT XX ONE (13:28)
[2017-01-27] MEDS: RIVAROXABAN 20 MG TABLET PO SCH (17:59)
[2017-01-27] MEDS: SENNOSIDES 8.6 MG TABLET PO SCH ×3 (21:00→22:37)
[2017-01-27] MEDS: NS IV SCH (21:01)
[2017-01-27] MEDS: NS FLUSH BAG 500ml IV PRN (21:01)
[2017-01-27] MEDS: VANCOMYCIN IV SCH (21:01)
[2017-01-27] MEDS: SERTRALINE 50 MG TABLET PO SCH ×3 (21:15→22:37)
[2017-01-27] MEDS: FAMOTIDINE 20 MG TABLET PO SCH ×3 (21:17→22:36)
[2017-01-28] MEDS: SALINE FLUSH 10ml SYRINGE IV PRN ×3 (04:36→19:43)
[2017-01-28] MEDS: LEVOTHYROXINE 125 MCG TABLET PO SCH (05:56)
[2017-01-28] MEDS: BUDESONIDE INH.SOLN 0.5mg/2ml NEB IH SCH ×2 (07:44→19:04)
[2017-01-28] MEDS: SENNOSIDES 8.6 MG TABLET PO SCH ×2 (08:37→20:57)
[2017-01-28] MEDS: FOLBIC TABLET PO SCH (08:37)
[2017-01-28] MEDS: IRON POLYSACCHARIDE COMPLEX 150 MG CAPSULE PO SCH (08:37)
[2017-01-28] MEDS: MAGNESIUM OXIDE 400 MG TABLET PO SCH (08:37)
[2017-01-28] MEDS: FUROSEMIDE 20 MG TABLET PO SCH (08:38)
[2017-01-28] MEDS: SENNA + DOCUSATE TABLET PO SCH ×2 (08:38→20:58)
[2017-01-28] MEDS: ASPIRIN 81 MG CHEWABLE TABLET PO SCH (08:38)
[2017-01-28] MEDS: CEFTRIAXONE 1 G in NS 100 ML IV SCH (08:38)
[2017-01-28] MEDS: GABAPENTIN 100 MG CAPSULE PO SCH ×3 (08:38→20:58)
[2017-01-28] MEDS: PredniSONE 5 MG TABLET PO SCH (08:38)
[2017-01-28] MEDS: POLYETHYL GLYCOL 3350 17gm PACKET PO SCH ×2 (08:39→21:34)
[2017-01-28] MEDS: NYSTATIN 500,000 units/5 ml ORAL LIQUID PO SCH ×4 (08:39→20:56)
[2017-01-28] MEDS: FLUTICASONE NASAL SPRAY 50mcg EA NOSTRIL SCH (08:42)
[2017-01-28] MEDS: TIMOLOL 0.5% EYE DROPS 5 ML EACH EYE SCH (08:42)
[2017-01-28] MEDS: ASCORBIC ACID 500 MG TABLET PO SCH (09:05)
[2017-01-28] MEDS: AMLODIPINE 5 MG TABLET PO SCH ×2 (09:05→20:58)
[2017-01-28] MEDS: HYDROCODONE/APAP 5mg/325mg TABLET PO PRN (09:37)
--- NOTE | 2017-01-28 11:44 | XRay Report ---
Indication: CHECK PICC PLACEMENT PROCEDURE: XR chest 1V: Encounter: Initial Comparison: January 25, 2017 Findings: Interval retraction of the right PICC line with the tip now projecting over the medial subclavian vein. Lungs are stable and clear. No pneumothorax. Heart size and mediastinal contours are unchanged. Left pacemaker. Pulmonary vascularity is normal. Impression: Interval retraction of the right PICC line with the tip now projecting over the subclavian vein. Recommend repositioning prior to use. .
--- NOTE | 2017-01-28 14:39 | XRay Report ---
Indication: post picc insertion check placement PROCEDURE: XR chest post-procedure 1V: Encounter: Initial Comparison: January 28, 2017 at 1143 Findings: New right PICC line in place with the tip projecting over the expected cavoatrial junction. Left cardiac pacemaker. Lungs are stable and clear without pneumothorax. Cardiomediastinal contours and pulmonary vascularity are unchanged. Impression: New right PICC line tip appears appropriately positioned. .
--- NOTE | 2017-01-28 17:48 | Progress Note ---
Subjective: F/U: Enterococcus fecalis infection Doing well today. Making good gains with strength and endurance with therapy. Pain controlled. Breathing well. No f/c. Eating well. Objective Vital signs: Temperature 96.4 F L 01/28/17 16:04 Pulse Rate 79 01/28/17 16:04 Respiratory Rate 16 01/28/17 16:04 Blood Pressure 131/77 01/28/17 16:04 Pulse Oximetry 97 01/28/17 16:04 Oxygen Delivery Method Room Air Oxygen Flow Rate 1 Height/Weight/BMI: Height 1.68 m Weight 73 kg Body Mass Index 25.4 - Constitutional Present: no acute distress, well nourished, well developed, cooperative - Routine HEENT Exam Head: Present: normocephalic, atraumatic Eye: Present: EOMI, PERRL ENT: Present: mucous membranes moist (No thrush ) - Routine Respiratory Exam Present: CTA bilaterally. Absent: respiratory distress, rhonchi, wheezes, crackles - Routine Cardiovascular Exam Present: RRR - Routine Abdominal Exam Present: soft, normoactive bowel sounds, non tender - Routine Extremities Exam Absent: cyanosis, clubbing - Routine Musculoskeletal Exam Musculoskeletal: Present: no clubbing or cyanosis - Routine Skin Exam Present: dry, warm - Routine Neurological Exam Present: alert, oriented X3, CN II-XII intact, vision grossly intact, hearing grossly intact. Absent: motor deficit - Routine Psychiatric Exam Present: normal affect, normal thought process, cooperative. Absent: anxious Results - Labs CBC & Chem 7: 01/28/17 04:30 01/27/17 04:51 Assessment and Plan (1) Enterococcus faecalis infection Current visit: Yes Status: Acute DVT Prophylaxis: Xarelto Assessment and Plan: Assessment Sepsis secondary to post-operative lumbar wound infection. Septicemia with E. faecalis, R-ampicillin. PABLO negative. S/p I&D of lumbar wound 12/23/16, wound culture with E. faecalis S-ampicillin, CoNS in broth. S/p L5-S1 lumbar fusion with foraminotomy of L3-4 11/19/[address] Bryson. Rheumatoid Arthritis Chronic HFpEF, CAD, PAD, HTN, HLD A-fib, SSS Constipation Macrocytic anemia - Continue antimicrobial therapy - recheck CBC tomorrow due to decreasing white count. Encourage continued work with PT/OT - patient making good gains. Continue with supportive care. Sepsis Assessment - Evaluation Sepsis screening result: No Definite Risk Hospital Course Summary Disclaimer: The visit summary below is not to be considered part of the above Progress Note. Hospital Course: 01/22/17 ASSESSMENT/PLAN Admit - swing bed status for IV ceftriaxone and vancomycin through 02/11; PT/OT. Sepsis secondary to Enterococcus septicemia s/p lumbar surgical wound infection -seen by Dr. Vaughan at [facility] -ceftriaxone 1 gm q24 hrs (started 01/13); vancomycin 750 mg (started 01/15) - cont through 02/11. Right PICC. -PABLO showed no vegetation -request latest labs from [facility] -consult PT/OT -wound care not necessary Constipation with abdominal distention -improving per report -continue bowel motivation Possible thrush -high risk d/t prednisone, neb treatments, and abx -start Nystatin QID Chronic HFpEF, CAD, PAD, HTN, HLD -required extra diuresis at [facility] -daily weights and measure I&O -request PABLO report -furosemide 80 mg bid -spironolactone 50 mg daily -Metoprolol, amlodipine -Diet - no added salt, low fat, low cholesterol Atrial fibrillation/SSS -anticoagulated on Xarelto -continue BB -PPM Rheumatoid arthritis -immunocompromised on chronic steroids - Prednisone 5 mg MWF & 7.5 mg S,T,Th, Sat -mild erythemic rash to face/forehead -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 anemia -iron started while in [facility] per daughter Depression & anxiety -sertraline Allergic rhinitis -fluticasone Glaucoma -timolol maleate drops Allergies -Percocet, Haldol, Morphine, Tramadol - cause confusion/encephalopathy Advanced directives -daughter Mireille is DPOA -has a Living will -Full code. F/U appts with Dr. Boggs, Dr. Woods and Dr. Bryson will need to be rescheduled after discharge 01/23/17 [place] S/P laminectomy with infected seroma and sepsis requiring IV antibiotic therapy --> cultures with enterococcus faecalis and coag negative staph --> currently on vancomycin and rocephin, Dr. Vaughan has been seeing for ID previously --> PABLO negative Right hip pain attributed to trochanteric bursitis with recent ortho evaluation Hypercalcemia, Ca 10.2 CKD presumably, cr 1.2 today, unclear renal baseline (was 1.5 on admission here) CAD per history, asymptomatic currently Afib, paroxysmal, rate controlled and AC with xarelto Normocytic anemia, likely ACD as well as iron deficiency, with stable Hb 10.5, on po iron Chronic steroid use on prednisone 7.5 mg/5 mg alternating days, history of RA Chronic constipation, improved Depression and anxiety, controlled on sertraline Hypothyroidism, stable on synthroid therapy Plan/Recommendations: Continue current antibiotic therapy and monitor WBC, intermittent CRP Hold low dose lasix and monitor volume status, BUN, calcium Continue home medications for afib, RA, CAD as ordered Renal panel, CBC in AM tomorrow for surveillance Continue vanco/rocephin as ordered and monitor vanco levels Continue home medications as above for chronic conditions Plan to consult Dr. Cabrera for ID opinion and surveillance on Wednesday01/24/17 Continue Vanc and Rocephin through 02/11/17 Elevated BUN (sl improvement from yesterday) - continue to hold Lasix; encourage oral. No evidence for GI bleed that could potentially explain inc in BUN. Calcium 10 - sl improved Macrocytic anemia - check B12 & folate 01/25/17 -Dr. Cabrera recommending to continue vancomycin for a total of 6 weeks, through . -consult Speech therapy -BUN still elevated but improving - down to 50 - encourage oral fluids. Cont to hold Lasix; monitor for fl overload. -constipation - hypoactive bowel sounds and increasing distention; concern for ileus start Senna+ & MOM PRN in addition to MiraLAX; add Dulcolax suppositories PRN. KUB if sx not improving. 01/26/17 Patient and family did request to decrease medication dose 0.5-1 tab as needed for pain control. He does not feel that there is any time that he would require over 1 tab as pain is overall well controlled. We will continue to work on more aggressive bowel motivation scheduled MiraLAX, senna plus and senna Lax. Continue on IV Rocephin and vancomycin for antimicrobial coverage. It is recommended by Dr. Tequila Cabrera that patient continue Rocephin through 02/11, and vancomycin through 02/24 as this will complete a 6 week course to cover osteomyelitis. Continue to follow daily labs to monitor blood counts, renal function and electrolytes. Encourage patient to work with PT and OT for ongoing postoperative strengthening. 01/27/17 Overall, Lee is doing well. Would like to increase bowel motivation increase MiraLAX to twice a day, increase senna lax 2 twice a day, Use MOM as needed. Continue with IV vancomycin and IV Rocephin for antimicrobial coverage. Appreciate consultation by Dr. Cabrera with her recommendations. Continue with Rocephin through 02/11 and vancomycin through 02/11. 01/28/17 Continue antimicrobial therapy - recheck CBC tomorrow due to decreasing white count. Encourage continued work with PT/OT - patient making good gains. Continue with supportive care.
[2017-01-28] MEDS: RIVAROXABAN 20 MG TABLET PO SCH (17:50)
[2017-01-28] MEDS: ALBUTEROL/IPRATROPIUM 2.5mg-0.5mg/3ml NEB AEROSOL PRN (19:04)
[2017-01-28] MEDS: VANCOMYCIN IV SCH (19:42)
[2017-01-28] MEDS: NS IV SCH (19:42)
[2017-01-28] MEDS: QUETIAPINE 25 MG TABLET PO SCH (20:57)
[2017-01-28] MEDS: SERTRALINE 50 MG TABLET PO SCH (20:58)
[2017-01-28] MEDS: FAMOTIDINE 20 MG TABLET PO SCH (20:58)
[2017-01-29] MEDS: SALINE FLUSH 10ml SYRINGE IV PRN ×2 (04:46→08:31)
[2017-01-29] MEDS: LEVOTHYROXINE 125 MCG TABLET PO SCH (06:14)
[2017-01-29] MEDS: MAGNESIUM OXIDE 400 MG TABLET PO SCH (08:33)
[2017-01-29] MEDS: AMLODIPINE 5 MG TABLET PO SCH ×2 (08:33→21:44)
[2017-01-29] MEDS: IRON POLYSACCHARIDE COMPLEX 150 MG CAPSULE PO SCH (08:33)
[2017-01-29] MEDS: SENNOSIDES 8.6 MG TABLET PO SCH ×2 (08:33→21:44)
[2017-01-29] MEDS: ASCORBIC ACID 500 MG TABLET PO SCH (08:33)
[2017-01-29] MEDS: ASPIRIN 81 MG CHEWABLE TABLET PO SCH (08:34)
[2017-01-29] MEDS: FUROSEMIDE 20 MG TABLET PO SCH (08:34)
[2017-01-29] MEDS: GABAPENTIN 100 MG CAPSULE PO SCH ×3 (08:34→21:46)
[2017-01-29] MEDS: FOLBIC TABLET PO SCH (08:34)
[2017-01-29] MEDS: POLYETHYL GLYCOL 3350 17gm PACKET PO SCH (08:35)
[2017-01-29] MEDS: FLUTICASONE NASAL SPRAY 50mcg EA NOSTRIL SCH (08:35)
[2017-01-29] MEDS: NYSTATIN 500,000 units/5 ml ORAL LIQUID PO SCH ×4 (08:35→21:46)
[2017-01-29] MEDS: SENNA + DOCUSATE TABLET PO SCH ×2 (08:36→21:46)
[2017-01-29] MEDS: TIMOLOL 0.5% EYE DROPS 5 ML EACH EYE SCH (08:37)
[2017-01-29] MEDS: PredniSONE 5 MG TABLET PO SCH (08:39)
[2017-01-29] MEDS: BUDESONIDE INH.SOLN 0.5mg/2ml NEB IH SCH ×2 (08:48→18:38)
[2017-01-29] MEDS: ALBUTEROL/IPRATROPIUM 2.5mg-0.5mg/3ml NEB AEROSOL PRN ×2 (08:49→18:39)
--- NOTE | 2017-01-29 08:57 | Progress Note ---
Subjective Date: 01/29/17 Subjective: Mr. Li just finished his breakfast and he denies any problems today. He denies fevers, chills, N/V or diarrhea. States he hasn't gotten up to walk much yet today. Denies itching or rashes. Exam Vital Signs: Temperature 95.3 F L 01/29/17 07:35 Pulse Rate 80 01/29/17 07:35 Respiratory Rate 12 01/29/17 07:35 Blood Pressure 133/76 01/29/17 07:35 Pulse Oximetry 99 01/29/17 07:35 Oxygen Delivery Method CPAP Oxygen Flow Rate 1 Height/Weight/BMI: Height 1.68 m Weight 73.5 kg Body Mass Index 25.4 - Constitutional Present: no acute distress, well nourished, well developed - Routine HEENT Exam Head: Present: normocephalic, atraumatic Eye: Present: EOMI, PERRL ENT: Present: mucous membranes moist - Routine Neck Exam Present: supple - Routine Respiratory Exam Present: CTA bilaterally - Routine Cardiovascular Exam Present: RRR. Absent: murmur - Routine Abdominal Exam Present: soft, normoactive bowel sounds, non distended. Absent: tenderness - Routine Extremities Exam Absent: edema - Routine Skin Exam Present: intact. Absent: rash Comments: RUE PICC site ok - Routine Neurological Exam Present: alert, oriented X3, CN II-XII intact - Routine Psychiatric Exam Present: normal affect Results - Labs CBC & Chem 7: 01/29/17 04:44 01/29/17 04:44 Impression: Sepsis secondary to post-operative lumbar wound infection. Septicemia with E. faecalis, R-ampicillin. PABLO negative. S/p I&D of lumbar wound 12/23/16, wound culture with E. faecalis S-ampicillin, CoNS in broth. S/p L5-S1 lumbar fusion with foraminotomy of L3-4 11/19/[address] Bryson. Rheumatoid arthritis on chronic prednisone. Atrial fibrillation S/p pacemaker. Hypothyroidism. Pancytopenia, likely drug-induced. Recommendation: I will stop the ceftriaxone today. If his counts don't improve after that, then will likely change the Vancomycin to Daptomycin. Will plan to continue with IV antibiotics through 02/24/17. This would complete a 6-week course which would cover for osteomyelitis/deep post-operative infection with hardware. Discussed with patient and his daughter. Sepsis Assessment - Evaluation Sepsis screening result: No Definite Risk
[2017-01-29] MEDS: HYDROCODONE/APAP 5mg/325mg TABLET PO PRN (10:24)
--- NOTE | 2017-01-29 11:26 | Pharmacy Consult-Antibiotics ---
Pharmacy Consult-Vancomycin - Laboratory Information WBC 2.7 T/MM3 (4.5-11.0) L 01/29/17 04:44 BUN 32.0 MG/DL (9-20) H 01/29/17 04:44 Creatinine 1.0 MG/DL (0.8-1.5) 01/29/17 04:44 Vancomycin Trough 19.98 UG/ML (15-20) 01/28/17 19:28 VANCOMYCIN CONSULT: LB, an 81 yo male, admitted for Sepsis @nd to Enterococcus septicemia s/p lumbar surgical wound infection. The serum creatinine = 1.0 mg/dL. Esttimated creatinine clearance ~ 53 mL/min. Vancomycin trough = 19.98 mcg/mL. I will continue to give Vancomycin 1000 mg IV q24hrs. The pharmacy will continue to review the renal function and the Vancomycin troughs and will adjust the Vancomycin accordingly. Thank you.
--- NOTE | 2017-01-29 16:02 | Progress Note ---
<Alejandrina Ramos D - Last Filed: 01/29/17 15:59> Subjective: Lee was in his chair, relaxing. He's doing much better overall. He has no pain while at rest, and even with activity his pain level now only reaches 5-6. Yesterday he was able to even walk without any pain. He states that his bowels have been more loose than constipated and inquires about reducing his MiraLAX frequency. He denies any abdominal pain/nausea. His voice has returned to baseline. He feels stronger in general. Objective Vital signs: Temperature 95.3 F L 01/29/17 07:35 Pulse Rate 80 01/29/17 07:35 Respiratory Rate 16 01/29/17 08:49 Blood Pressure 133/76 01/29/17 07:35 Pulse Oximetry 98 01/29/17 08:49 Oxygen Delivery Method CPAP Oxygen Flow Rate 1 Height/Weight/BMI: Height 1.68 m Weight 73.5 kg Body Mass Index 25.4 - Constitutional Present: no acute distress, well nourished, well developed - Routine HEENT Exam Eye: Present: PERRL. Absent: conjunctival icterus, scleral injection ENT: Present: mucous membranes moist, oropharynx clear, dentition normal - Routine Respiratory Exam Present: CTA bilaterally - Routine Cardiovascular Exam Present: RRR, S1, S2 - Routine Abdominal Exam Present: normoactive bowel sounds, non tender, distended (mild) - Routine Extremities Exam Present: edema (L>R), pulses intact - Routine Back/Spine/Pelvis Exam Back/Spine: Absent: full ROM - Routine Musculoskeletal Exam Musculoskeletal: Present: moving extremities well - Routine Skin Exam Present: intact, dry, warm - Routine Neurological Exam Present: alert, oriented X3, CN II-XII intact - Routine Psychiatric Exam Present: normal affect, normal thought process, cooperative Results - Labs CBC & Chem 7: 01/29/17 04:44 01/29/17 04:44 Assessment and Plan (1) Enterococcus faecalis infection Current visit: Yes Status: Acute DVT Prophylaxis: Xarelto Resuscitation Status: Full Code Assessment and Plan: Assessment Sepsis secondary to post-operative lumbar wound infection. Septicemia with E. faecalis, R-ampicillin. PABLO negative. S/p I&D of lumbar wound 12/23/16, wound culture with E. faecalis S-ampicillin, CoNS in broth. S/p L5-S1 lumbar fusion with foraminotomy of L3-4 11/19/[address] Bryson. Pancytopenia, likely drug-induced Rheumatoid Arthritis Chronic HFpEF, CAD, PAD, HTN, HLD A-fib, SSS Constipation Plan Dr. Cabrera stopped ceftriaxone d/t pancytopenia. Continue vanco through 02/24/17. If he remains pancytopenic, she recommends stopping vanco and starting daptomycin. Decrease frequency of MiraLAX to once a day. Repeat CBC and BMP in am. BUN much improved - 32 today. Sepsis Assessment - Evaluation Sepsis screening result: No Definite Risk Hospital Course Summary Disclaimer: The visit summary below is not to be considered part of the above Progress Note. Hospital Course: 01/22/17 ASSESSMENT/PLAN Admit - swing bed status for IV ceftriaxone and vancomycin through 02/11; PT/OT. Sepsis secondary to Enterococcus septicemia s/p lumbar surgical wound infection -seen by Dr. Vaughan at [facility] -ceftriaxone 1 gm q24 hrs (started 01/13); vancomycin 750 mg (started 01/15) - cont through 02/11. Right PICC. -PABLO showed no vegetation -request latest labs from [facility] -consult PT/OT -wound care not necessary Constipation with abdominal distention -improving per report -continue bowel motivation Possible thrush -high risk d/t prednisone, neb treatments, and abx -start Nystatin QID Chronic HFpEF, CAD, PAD, HTN, HLD -required extra diuresis at [facility] -daily weights and measure I&O -request PABLO report -furosemide 80 mg bid -spironolactone 50 mg daily -Metoprolol, amlodipine -Diet - no added salt, low fat, low cholesterol Atrial fibrillation/SSS -anticoagulated on Xarelto -continue BB -PPM Rheumatoid arthritis -immunocompromised on chronic steroids - Prednisone 5 mg MWF & 7.5 mg S,T,Th, Sat -mild erythemic rash to face/forehead -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 anemia -iron started while in [facility] per daughter Depression & anxiety -sertraline Allergic rhinitis -fluticasone Glaucoma -timolol maleate drops Allergies -Percocet, Haldol, Morphine, Tramadol - cause confusion/encephalopathy Advanced directives -daughter Mireille is DPOA -has a Living will -Full code. F/U appts with Dr. Boggs, Dr. Woods and Dr. Bryson will need to be rescheduled after discharge 01/23/17 [place] S/P laminectomy with infected seroma and sepsis requiring IV antibiotic therapy --> cultures with enterococcus faecalis and coag negative staph --> currently on vancomycin and rocephin, Dr. Vaughan has been seeing for ID previously --> PABLO negative Right hip pain attributed to trochanteric bursitis with recent ortho evaluation Hypercalcemia, Ca 10.2 CKD presumably, cr 1.2 today, unclear renal baseline (was 1.5 on admission here) CAD per history, asymptomatic currently Afib, paroxysmal, rate controlled and AC with xarelto Normocytic anemia, likely ACD as well as iron deficiency, with stable Hb 10.5, on po iron Chronic steroid use on prednisone 7.5 mg/5 mg alternating days, history of RA Chronic constipation, improved Depression and anxiety, controlled on sertraline Hypothyroidism, stable on synthroid therapy Plan/Recommendations: Continue current antibiotic therapy and monitor WBC, intermittent CRP Hold low dose lasix and monitor volume status, BUN, calcium Continue home medications for afib, RA, CAD as ordered Renal panel, CBC in AM tomorrow for surveillance Continue vanco/rocephin as ordered and monitor vanco levels Continue home medications as above for chronic conditions Plan to consult Dr. Cabrera for ID opinion and surveillance on Wednesday01/24/17 Continue Vanc and Rocephin through 02/11/17 Elevated BUN (sl improvement from yesterday) - continue to hold Lasix; encourage oral. No evidence for GI bleed that could potentially explain inc in BUN. Calcium 10 - sl improved Macrocytic anemia - check B12 & folate 01/25/17 -Dr. Cabrera recommending to continue vancomycin for a total of 6 weeks, through . -consult Speech therapy -BUN still elevated but improving - down to 50 - encourage oral fluids. Cont to hold Lasix; monitor for fl overload. -constipation - hypoactive bowel sounds and increasing distention; concern for ileus start Senna+ & MOM PRN in addition to MiraLAX; add Dulcolax suppositories PRN. KUB if sx not improving. 01/26/17 Patient and family did request to decrease medication dose 0.5-1 tab as needed for pain control. He does not feel that there is any time that he would require over 1 tab as pain is overall well controlled. We will continue to work on more aggressive bowel motivation scheduled MiraLAX, senna plus and senna Lax. Continue on IV Rocephin and vancomycin for antimicrobial coverage. It is recommended by Dr. Tequila Cabrera that patient continue Rocephin through 02/11, and vancomycin through 02/24 as this will complete a 6 week course to cover osteomyelitis. Continue to follow daily labs to monitor blood counts, renal function and electrolytes. Encourage patient to work with PT and OT for ongoing postoperative strengthening. 01/27/17 Increase bowel motivation increase MiraLAX to twice a day, increase senna lax 2 twice a day, Use MOM as needed. Continue with IV vancomycin and IV Rocephin for antimicrobial coverage. 01/28/17 Continue antimicrobial therapy - recheck CBC tomorrow due to decreasing white count. 01/29/17 Dr. Cabrera stopped ceftriaxone d/t pancytopenia. Continue vanco through 02/24/17. <Jero Gutierrez D - Last Filed: 01/29/17 16:28> Objective Vital signs: Temperature 95.3 F L 01/29/17 07:35 Pulse Rate 80 01/29/17 07:35 Respiratory Rate 16 01/29/17 08:49 Blood Pressure 133/76 01/29/17 07:35 Pulse Oximetry 98 01/29/17 08:49 Oxygen Delivery Method CPAP Oxygen Flow Rate 1 Height/Weight/BMI: Height 1.68 m Weight 73.5 kg Body Mass Index 25.4 Results - Labs CBC & Chem 7: 01/29/17 04:44 01/29/17 04:44 Assessment and Plan (1) Enterococcus faecalis infection Current visit: Yes Status: Acute Assessment and Plan: Assessment Sepsis secondary to post-operative lumbar wound infection. Septicemia with E. faecalis, R-ampicillin. PABLO negative. S/p I&D of lumbar wound 12/23/16, wound culture with E. faecalis S-ampicillin, CoNS in broth. S/p L5-S1 lumbar fusion with foraminotomy of L3-4 11/19/[address] Bryson. Pancytopenia, likely drug-induced Rheumatoid Arthritis Chronic HFpEF, CAD, PAD, HTN, HLD A-fib, SSS Constipation Have independently interviewed and examined pt. Chart reviewed. Case discussed with my SURVEY OPERATIONS DIRECTOR. Care plan developed with my supervision; agree with above. Doing well today. Tolerating therapy. Pain Controlled. Bowels moving well. Urinating well. NO SOA cough or congestion. Adherent with CPAP at night. No chest pressure or pain. Denies f/c. Lungs: clear bilaterally CV: regular AB: soft nt/nd +BS EXT: +1 edema to LLE. MSE: awake alert appropriate Plan: Continue Vanco-Rocephin stopped by ID due to decreased blood counts- monitor CBC. Encourage continued therapy and activities. Miralax decreased as bowels functioning well. Continue CV medications as pt stable and compensated. Overall, making improvements. - Time spent with patient 25 - 35 minutes Hospital Course Summary Disclaimer: The visit summary below is not to be considered part of the above Progress Note.
[2017-01-29] MEDS: RIVAROXABAN 20 MG TABLET PO SCH (17:53)
[2017-01-29] MEDS: NS IV SCH (20:00)
[2017-01-29] MEDS: VANCOMYCIN IV SCH (20:00)
[2017-01-29] MEDS: SERTRALINE 50 MG TABLET PO SCH (21:44)
[2017-01-29] MEDS: FAMOTIDINE 20 MG TABLET PO SCH (21:44)
[2017-01-29] MEDS: QUETIAPINE 25 MG TABLET PO SCH (21:44)
[2017-01-30] MEDS: LEVOTHYROXINE 125 MCG TABLET PO SCH (05:54)
[2017-01-30] MEDS: BUDESONIDE INH.SOLN 0.5mg/2ml NEB IH SCH ×2 (07:27→20:35)
[2017-01-30] MEDS: ALBUTEROL/IPRATROPIUM 2.5mg-0.5mg/3ml NEB AEROSOL PRN ×2 (07:27→20:35)
[2017-01-30] MEDS: FLUTICASONE NASAL SPRAY 50mcg EA NOSTRIL SCH (09:01)
[2017-01-30] MEDS: NYSTATIN 500,000 units/5 ml ORAL LIQUID PO SCH ×4 (09:01→21:03)
[2017-01-30] MEDS: TIMOLOL 0.5% EYE DROPS 5 ML EACH EYE SCH (09:01)
[2017-01-30] MEDS: MAGNESIUM OXIDE 400 MG TABLET PO SCH (09:01)
[2017-01-30] MEDS: POLYETHYL GLYCOL 3350 17gm PACKET PO SCH (09:01)
[2017-01-30] MEDS: GABAPENTIN 100 MG CAPSULE PO SCH ×3 (09:01→21:05)
[2017-01-30] MEDS: ASCORBIC ACID 500 MG TABLET PO SCH (09:02)
[2017-01-30] MEDS: FUROSEMIDE 20 MG TABLET PO SCH (09:02)
[2017-01-30] MEDS: PredniSONE 5 MG TABLET PO SCH (09:02)
[2017-01-30] MEDS: IRON POLYSACCHARIDE COMPLEX 150 MG CAPSULE PO SCH (09:02)
[2017-01-30] MEDS: AMLODIPINE 5 MG TABLET PO SCH ×2 (09:03→21:04)
[2017-01-30] MEDS: ASPIRIN 81 MG CHEWABLE TABLET PO SCH (09:03)
[2017-01-30] MEDS: SENNA + DOCUSATE TABLET PO SCH ×2 (09:03→21:04)
[2017-01-30] MEDS: FOLBIC TABLET PO SCH (09:03)
[2017-01-30] MEDS: SENNOSIDES 8.6 MG TABLET PO SCH ×2 (09:03→21:04)
--- NOTE | 2017-01-30 14:23 | Progress Note ---
<Alejandrina Ramos - Last Filed: 01/30/17 14:19> Subjective: Lee was sleeping in his chair, but his daughter was in the room and invited me in. She stated that he has been very tired - he worked hard with therapy yesterday. I reviewed labs - pancytopenia is improving. She mentioned that she' s worried about delirium - for the past several evenings he's been confused (ie doesn't know where the bathroom is). He's not on much pain medication any more, and we talked about other ways to reduce delirium. She doesn't want to try to cut out pain meds or centrally acting medications at this point. She adamantly stated that Haldol is terrible for him. She also asks whether or not speech can work with him some more - she thinks they were helpful. He woke up after several minutes of talking, and denied any new concerns. His abdomen has been nondistended. His bowels have been moving. He's improving overall with therapy. Objective Vital signs: Temperature 97 F 01/30/17 08:00 Pulse Rate 80 01/30/17 08:00 Respiratory Rate 16 01/30/17 08:00 Blood Pressure 141/67 H 01/30/17 08:00 Pulse Oximetry 99 01/30/17 08:00 Oxygen Delivery Method Room Air Oxygen Flow Rate 1 Height/Weight/BMI: Height 1.68 m Weight 74.1 kg Body Mass Index 25.4 - Constitutional Present: no acute distress, well nourished, well developed - Routine HEENT Exam ENT: Present: mucous membranes moist - Routine Respiratory Exam Present: CTA bilaterally - Routine Cardiovascular Exam Present: RRR, S1, S2 - Routine Abdominal Exam Present: soft, normoactive bowel sounds, non distended, non tender - Routine Extremities Exam Absent: calf tenderness - Routine Skin Exam Present: intact, dry, warm - Routine Neurological Exam Present: alert, oriented X3, normal speech - Routine Psychiatric Exam Present: normal affect, normal thought process, cooperative Results - Labs CBC & Chem 7: 01/30/17 04:01 01/30/17 04:01 Assessment and Plan (1) Enterococcus faecalis infection Current visit: Yes Status: Acute GI Prophylaxis: Pepcid Resuscitation Status: Full Code Assessment and Plan: Assessment Sepsis secondary to post-operative lumbar wound infection. Septicemia with E. faecalis, R-ampicillin. PABLO negative. S/p I&D of lumbar wound 12/23/16, wound culture with E. faecalis S-ampicillin, CoNS in broth. S/p L5-S1 lumbar fusion with foraminotomy of L3-4 11/19/[address] Bryson. Pancytopenia, likely drug-induced Rheumatoid Arthritis Chronic HFpEF, CAD, PAD, HTN, HLD A-fib, SSS Constipation - improved Plan Pancytopenia - WBC increased to 3.2, hgb improved to 9.9, and platelets are now normal at 134 since stopping Rocephin. Continue Vanco per ID. Delirium - continue nonpharmacologic measures; offered psych consultation but Mireille's not sure if that would be helpful. She stated that they saw psych while at [facility] who recommended Haldol (then Lee became lethargic and had respiratory depression while on it). We talked about stopping centrally acting medication, but she would like to keep them on board to help with pain control. Continue speech therapy - cognitive linguistic therapy 2x/week - I've asked speech if they can come more frequently. Sepsis Assessment - Evaluation Sepsis screening result: No Definite Risk Hospital Course Summary Disclaimer: The visit summary below is not to be considered part of the above Progress Note. Hospital Course: 01/22/17 ASSESSMENT/PLAN Admit - swing bed status for IV ceftriaxone and vancomycin through 02/11; PT/OT. Sepsis secondary to Enterococcus septicemia s/p lumbar surgical wound infection -seen by Dr. Vaughan at [facility] -ceftriaxone 1 gm q24 hrs (started 01/13); vancomycin 750 mg (started 01/15) - cont through 02/11. Right PICC. -PABLO showed no vegetation -request latest labs from [facility] -consult PT/OT -wound care not necessary Constipation with abdominal distention -improving per report -continue bowel motivation Possible thrush -high risk d/t prednisone, neb treatments, and abx -start Nystatin QID Chronic HFpEF, CAD, PAD, HTN, HLD -required extra diuresis at [facility] -daily weights and measure I&O -request PABLO report -furosemide 80 mg bid -spironolactone 50 mg daily -Metoprolol, amlodipine -Diet - no added salt, low fat, low cholesterol Atrial fibrillation/SSS -anticoagulated on Xarelto -continue BB -PPM Rheumatoid arthritis -immunocompromised on chronic steroids - Prednisone 5 mg MWF & 7.5 mg S,T,Th, Sat -mild erythemic rash to face/forehead -criminal 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 anemia -iron started while in [facility] per daughter Depression & anxiety -sertraline Allergic rhinitis -fluticasone Glaucoma -timolol maleate drops Allergies -Percocet, Haldol, Morphine, Tramadol - cause confusion/encephalopathy Advanced directives -daughter Mireille is DPOA -has a Living will -Full code. F/U appts with Dr. Boggs, Dr. Woods and Dr. Bryson will need to be rescheduled after discharge 01/23/17 [place] S/P laminectomy with infected seroma and sepsis requiring IV antibiotic therapy --> cultures with enterococcus faecalis and coag negative staph --> currently on vancomycin and rocephin, Dr. Vaughan has been seeing for ID previously --> PABLO negative Right hip pain attributed to trochanteric bursitis with recent ortho evaluation Hypercalcemia, Ca 10.2 CKD presumably, cr 1.2 today, unclear renal baseline (was 1.5 on admission here) CAD per history, asymptomatic currently Afib, paroxysmal, rate controlled and AC with xarelto Normocytic anemia, likely ACD as well as iron deficiency, with stable Hb 10.5, on po iron Chronic steroid use on prednisone 7.5 mg/5 mg alternating days, history of RA Chronic constipation, improved Depression and anxiety, controlled on sertraline Hypothyroidism, stable on Synthroid therapy Plan/Recommendations: Continue current antibiotic therapy and monitor WBC, intermittent CRP Hold low dose lasix and monitor volume status, BUN, calcium Continue home medications for afib, RA, CAD as ordered Renal panel, CBC in AM tomorrow for surveillance Continue vanco/rocephin as ordered and monitor vanco levels Continue home medications as above for chronic conditions Plan to consult Dr. Cabrera for ID opinion and surveillance on Wednesday01/24/17 Continue Vanc and Rocephin through 02/11/17 Elevated BUN (sl improvement from yesterday) - continue to hold Lasix; encourage oral. No evidence for GI bleed that could potentially explain inc in BUN. Calcium 10 - sl improved Macrocytic anemia - check B12 & folate 01/25/17 -Dr. Cabrera recommending to continue vancomycin for a total of 6 weeks, through . -consult Speech therapy -BUN still elevated but improving - down to 50 - encourage oral fluids. Cont to hold Lasix; monitor for fl overload. -constipation - hypoactive bowel sounds and increasing distention; concern for ileus start Senna+ & MOM PRN in addition to MiraLAX; add Dulcolax suppositories PRN. KUB if sx not improving. 01/26/17 Patient and family did request to decrease medication dose 0.5-1 tab as needed for pain control. He does not feel that there is any time that he would require over 1 tab as pain is overall well controlled. We will continue to work on more aggressive bowel motivation scheduled MiraLAX, senna plus and senna Lax. Continue on IV Rocephin and vancomycin for antimicrobial coverage. It is recommended by Dr. Tequila Cabrera that patient continue Rocephin through 02/11, and vancomycin through 02/24 as this will complete a 6 week course to cover osteomyelitis. Continue to follow daily labs to monitor blood counts, renal function and electrolytes. Encourage patient to work with PT and OT for ongoing postoperative strengthening. 01/27/17 Increase bowel motivation increase MiraLAX to twice a day, increase senna lax 2 twice a day, Use MOM as needed. Continue with IV vancomycin and IV Rocephin for antimicrobial coverage. 01/28/17 Continue antimicrobial therapy - recheck CBC tomorrow due to decreasing white count. 01/29/17 Dr. Cabrera stopped ceftriaxone d/t pancytopenia. Continue vanco through 02/24/17. 01/30/17 WBC increased to 3.2, hgb 9.9, and platelets are now normal at 134. Continue Vanco per ID. Delirium - continue nonpharmacologic measures; offered psych consultation but Mireille's not sure if that would be helpful. She stated that they saw psych while at [facility] who recommended Haldol (then Lee became lethargic and had respiratory depression while on it). We talked about stopping centrally acting medication, but she would like to keep them on board to help with pain control. Continue speech therapy - cognitive linguistic therapy 2x/week - I've asked speech if they can come more frequently. <Jero Gutierrez D - Last Filed: 01/30/17 14:41> Objective Vital signs: Temperature 97 F 01/30/17 08:00 Pulse Rate 80 01/30/17 08:00 Respiratory Rate 16 01/30/17 08:00 Blood Pressure 141/67 H 01/30/17 08:00 Pulse Oximetry 99 01/30/17 08:00 Oxygen Delivery Method Room Air Oxygen Flow Rate 1 Height/Weight/BMI: Height 1.68 m Weight 74.1 kg Body Mass Index 25.4 Results - Labs CBC & Chem 7: 01/30/17 04:01 01/30/17 04:01 Assessment and Plan (1) Enterococcus faecalis infection Current visit: Yes Status: Acute Assessment and Plan: Assessment Sepsis secondary to post-operative lumbar wound infection. Septicemia with E. faecalis, R-ampicillin. PABLO negative. S/p I&D of lumbar wound 12/23/16, wound culture with E. faecalis S-ampicillin, CoNS in broth. S/p L5-S1 lumbar fusion with foraminotomy of L3-4 11/19/[address] Bryson. Pancytopenia, likely drug-induced Rheumatoid Arthritis Chronic HFpEF, CAD, PAD, HTN, HLD A-fib, SSS Constipation - improved Have independently interviewed and examined pt. Chart reviewed. Case discussed with my PROCESS VALIDATION ENGINEER. Care plan developed with my supervision; agree with above. Doing well this afternoon. Up in chair. Pain controlled. No f/c. Bowels moving well-no problems passing stool. Denies ab pain or nausea. Eating well. Breathing well. No chest pressure or pain. Lungs: clear bilaterally, good air movement. No crackles or wheezes. CV: regular AB: soft nt +BS MSE: awake alert appropriate Plan; Continue with Vancomcyin-Rocephin stopped due to pancytopenia. Continue to monitor blood counts. Volume status and BP stable-continue CV medications. Bowel function doing well. Encourage continued activities. Medically stable. Hospital Course Summary Disclaimer: The visit summary below is not to be considered part of the above Progress Note.
[2017-01-30] MEDS: RIVAROXABAN 20 MG TABLET PO SCH (17:43)
[2017-01-30] MEDS: NS IV SCH (19:51)
[2017-01-30] MEDS: VANCOMYCIN IV SCH (19:51)
[2017-01-30] MEDS: SALINE FLUSH 10ml SYRINGE IV PRN (19:52)
[2017-01-30] MEDS: NS FLUSH BAG 500ml IV PRN (19:52)
[2017-01-30] MEDS: SERTRALINE 50 MG TABLET PO SCH (21:05)
[2017-01-30] MEDS: FAMOTIDINE 20 MG TABLET PO SCH (21:05)
[2017-01-30] MEDS: QUETIAPINE 25 MG TABLET PO SCH (21:05)
[2017-01-31] MEDS: LEVOTHYROXINE 125 MCG TABLET PO SCH (05:52)
[2017-01-31] MEDS: BUDESONIDE INH.SOLN 0.5mg/2ml NEB IH SCH ×2 (09:28→20:55)
[2017-01-31] MEDS: PredniSONE 5 MG TABLET PO SCH (09:53)
[2017-01-31] MEDS: FLUTICASONE NASAL SPRAY 50mcg EA NOSTRIL SCH (09:55)
[2017-01-31] MEDS: ASPIRIN 81 MG CHEWABLE TABLET PO SCH (09:55)
[2017-01-31] MEDS: POLYETHYL GLYCOL 3350 17gm PACKET PO SCH (09:56)
[2017-01-31] MEDS: FOLBIC TABLET PO SCH (09:56)
[2017-01-31] MEDS: FUROSEMIDE 20 MG TABLET PO SCH (09:56)
[2017-01-31] MEDS: MAGNESIUM OXIDE 400 MG TABLET PO SCH (09:56)
[2017-01-31] MEDS: IRON POLYSACCHARIDE COMPLEX 150 MG CAPSULE PO SCH (09:57)
[2017-01-31] MEDS: AMLODIPINE 5 MG TABLET PO SCH ×2 (09:57→20:45)
[2017-01-31] MEDS: GABAPENTIN 100 MG CAPSULE PO SCH ×3 (09:57→20:45)
[2017-01-31] MEDS: NYSTATIN 500,000 units/5 ml ORAL LIQUID PO SCH ×4 (09:57→20:45)
[2017-01-31] MEDS: SENNA + DOCUSATE TABLET PO SCH ×2 (09:58→21:10)
[2017-01-31] MEDS: TIMOLOL 0.5% EYE DROPS 5 ML EACH EYE SCH (09:58)
[2017-01-31] MEDS: ASCORBIC ACID 500 MG TABLET PO SCH (09:58)
[2017-01-31] MEDS: SENNOSIDES 8.6 MG TABLET PO SCH ×2 (09:59→20:45)
--- NOTE | 2017-01-31 12:19 | Progress Note ---
Subjective: F/U: Enterococcus faecalis infection Doing well today. No f/c. Working on exercises and activities taught by therapy. Does note some pain (not using [place] frequently, though). Breathing well. No chest pressure or discomfort. Eating well. Stools moving well. Objective Vital signs: Temperature 97.0 F 01/31/17 08:00 Pulse Rate 79 01/31/17 08:00 Respiratory Rate 12 01/31/17 09:30 Blood Pressure 141/79 H 01/31/17 08:00 Pulse Oximetry 100 01/31/17 09:30 Oxygen Delivery Method Room Air Oxygen Flow Rate 1 Height/Weight/BMI: Height 1.68 m Weight 73.4 kg Body Mass Index 25.4 - Constitutional Present: no acute distress, well nourished, well developed, cooperative - Routine HEENT Exam Head: Present: normocephalic, atraumatic Eye: Present: EOMI, PERRL ENT: Present: mucous membranes moist - Routine Respiratory Exam Present: decreased breath sounds. Absent: dyspnea, respiratory distress, rhonchi, wheezes, crackles - Routine Cardiovascular Exam Present: RRR, no murmur - Routine Abdominal Exam Present: soft, normoactive bowel sounds, non distended, non tender - Routine Extremities Exam Present: no edema, pulses intact. Absent: cyanosis, clubbing - Routine Musculoskeletal Exam Musculoskeletal: Present: no clubbing or cyanosis, no joint swelling - Routine Skin Exam Present: warm, normal turgor - Routine Neurological Exam Present: alert, CN II-XII intact, vision grossly intact, hearing grossly intact. Absent: motor deficit - Routine Psychiatric Exam Present: normal affect, normal thought process, cooperative, good insight, good judgment. Absent: anxious, agitated Results - Labs CBC & Chem 7: 01/31/17 04:11 01/31/17 04:11 Assessment and Plan (1) Enterococcus faecalis infection Current visit: Yes Status: Acute Assessment and Plan: Assessment Sepsis secondary to post-operative lumbar wound infection. Septicemia with E. faecalis, R-ampicillin. PABLO negative. S/p I&D of lumbar wound 12/23/16, wound culture with E. faecalis S-ampicillin, CoNS in broth. S/p L5-S1 lumbar fusion with foraminotomy of L3-4 11/19/[address] Bryson. Pancytopenia, likely drug-induced Rheumatoid Arthritis Chronic HFpEF, CAD, PAD, HTN, HLD A-fib, SSS Constipation - improved Plan Continue Vancomycin. WBC with gradual increase. No f/c of signs of systemic infection. Continue activities and therapy. Speech to help with cognitive issues this week. Volume and blood pressure stable - continue CV medications. Sepsis Assessment - Evaluation Sepsis screening result: No Definite Risk Hospital Course Summary Disclaimer: The visit summary below is not to be considered part of the above Progress Note. Hospital Course: 01/22/17 ASSESSMENT/PLAN Admit - swing bed status for IV ceftriaxone and vancomycin through 02/11; PT/OT. Sepsis secondary to Enterococcus septicemia s/p lumbar surgical wound infection -seen by Dr. Vaughan at [facility] -ceftriaxone 1 gm q24 hrs (started 01/13); vancomycin 750 mg (started 01/15) - cont through 02/11. Right PICC. -PABLO showed no vegetation -request latest labs from [facility] -consult PT/OT -wound care not necessary Constipation with abdominal distention -improving per report -continue bowel motivation Possible thrush -high risk d/t prednisone, neb treatments, and abx -start Nystatin QID Chronic HFpEF, CAD, PAD, HTN, HLD -required extra diuresis at [facility] -daily weights and measure I&O -request PABLO report -furosemide 20mg daily -spironolactone 50 mg daily -Metoprolol, amlodipine -Diet - no added salt, low fat, low cholesterol Atrial fibrillation/SSS -anticoagulated on Xarelto -continue BB -PPM Rheumatoid arthritis -immunocompromised on chronic steroids - Prednisone 5 mg MWF & 7.5 mg S,T,Th, Sat -mild erythemic rash to face/forehead -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 anemia -iron started while in [facility] per daughter Depression & anxiety -sertraline Allergic rhinitis -fluticasone Glaucoma -timolol maleate drops Allergies -Percocet, Haldol, Morphine, Tramadol - cause confusion/encephalopathy Advanced directives -daughter Mireille is DPOA -has a Living will -Full code. F/U appts with Dr. Boggs, Dr. Woods and Dr. Bryson will need to be rescheduled after discharge 01/23/17 [place] S/P laminectomy with infected seroma and sepsis requiring IV antibiotic therapy --> cultures with enterococcus faecalis and coag negative staph --> currently on vancomycin and rocephin, Dr. Vaughan has been seeing for ID previously --> PABLO negative Right hip pain attributed to trochanteric bursitis with recent ortho evaluation Hypercalcemia, Ca 10.2 CKD presumably, cr 1.2 today, unclear renal baseline (was 1.5 on admission here ) CAD per history, asymptomatic currently Afib, paroxysmal, rate controlled and AC with xarelto Normocytic anemia, likely ACD as well as iron deficiency, with stable Hb 10.5, on po iron Chronic steroid use on prednisone 7.5 mg/5 mg alternating days, history of RA Chronic constipation, improved Depression and anxiety, controlled on sertraline Hypothyroidism, stable on Synthroid therapy Plan/Recommendations: Continue current antibiotic therapy and monitor WBC, intermittent CRP Hold low dose lasix and monitor volume status, BUN, calcium Continue home medications for afib, RA, CAD as ordered Renal panel, CBC in AM tomorrow for surveillance Continue vanco/rocephin as ordered and monitor vanco levels Continue home medications as above for chronic conditions Plan to consult Dr. Cabrera for ID opinion and surveillance on Wednesday01/24/17 Continue Vanc and Rocephin through 02/11/17 Elevated BUN (sl improvement from yesterday) - continue to hold Lasix; encourage oral. No evidence for GI bleed that could potentially explain inc in BUN. Calcium 10 - sl improved Macrocytic anemia - check B12 & folate 01/25/17 -Dr. Cabrera recommending to continue vancomycin for a total of 6 weeks, through . -consult Speech therapy -BUN still elevated but improving - down to 50 - encourage oral fluids. Cont to hold Lasix; monitor for fl overload. -constipation - hypoactive bowel sounds and increasing distention; concern for ileus start Senna+ & MOM PRN in addition to MiraLAX; add Dulcolax suppositories PRN. KUB if sx not improving. 01/26/17 Patient and family did request to decrease medication dose 0.5-1 tab as needed for pain control. He does not feel that there is any time that he would require over 1 tab as pain is overall well controlled. We will continue to work on more aggressive bowel motivation scheduled MiraLAX, senna plus and senna Lax. Continue on IV Rocephin and vancomycin for antimicrobial coverage. It is recommended by Dr. Tequila Cabrera that patient continue Rocephin through 02/11, and vancomycin through 02/24 as this will complete a 6 week course to cover osteomyelitis. Continue to follow daily labs to monitor blood counts, renal function and electrolytes. Encourage patient to work with PT and OT for ongoing postoperative strengthening. 01/27/17 Increase bowel motivation increase MiraLAX to twice a day, increase senna lax 2 twice a day, Use MOM as needed. Continue with IV vancomycin and IV Rocephin for antimicrobial coverage. 01/28/17 Continue antimicrobial therapy - recheck CBC tomorrow due to decreasing white count. 01/29/17 Dr. Cabrera stopped ceftriaxone d/t pancytopenia. Continue vanco through 02/24/17. 01/30/17 WBC increased to 3.2, hgb 9.9, and platelets are now normal at 134. Continue Vanco per ID. Delirium - continue nonpharmacologic measures; offered psych consultation but Mireille's not sure if that would be helpful. She stated that they saw psych while at [facility] who recommended Haldol (then Lee became lethargic and had respiratory depression while on it). We talked about stopping centrally acting medication, but she would like to keep them on board to help with pain control. Continue speech therapy - cognitive linguistic therapy 2x/week - I've asked speech if they can come more frequently. 01/31/17 Continue Vancomycin. WBC with gradual increase. No f/c of signs of systemic infection. Continue activities and therapy. Speech to help with cognitive issues this week. Volume and blood pressure stable - continue CV medications.
[2017-01-31] MEDS: HYDROCODONE/APAP 5mg/325mg TABLET PO PRN (13:35)
[2017-01-31] MEDS: RIVAROXABAN 20 MG TABLET PO SCH (16:52)
[2017-01-31] MEDS: VANCOMYCIN IV SCH (20:44)
[2017-01-31] MEDS: NS IV SCH (20:44)
[2017-01-31] MEDS: FAMOTIDINE 20 MG TABLET PO SCH (20:45)
[2017-01-31] MEDS: QUETIAPINE 25 MG TABLET PO SCH (20:46)
[2017-01-31] MEDS: SERTRALINE 50 MG TABLET PO SCH (20:46)
[2017-01-31] MEDS: SALINE FLUSH 10ml SYRINGE IV PRN (20:48)
[2017-01-31] MEDS: NS FLUSH BAG 500ml IV PRN (20:48)
[2017-01-31] MEDS: ALBUTEROL/IPRATROPIUM 2.5mg-0.5mg/3ml NEB AEROSOL PRN (20:55)
[2017-02-01] MEDS: LEVOTHYROXINE 125 MCG TABLET PO SCH (06:25)
[2017-02-01] MEDS: ALBUTEROL/IPRATROPIUM 2.5mg-0.5mg/3ml NEB AEROSOL PRN ×2 (07:10→20:55)
[2017-02-01] MEDS: BUDESONIDE INH.SOLN 0.5mg/2ml NEB IH SCH ×2 (07:10→20:56)
[2017-02-01] MEDS: PredniSONE 5 MG TABLET PO SCH (08:06)
[2017-02-01] MEDS: NYSTATIN 500,000 units/5 ml ORAL LIQUID PO SCH ×4 (08:54→21:49)
[2017-02-01] MEDS: SENNOSIDES 8.6 MG TABLET PO SCH ×2 (08:54→21:49)
[2017-02-01] MEDS: MAGNESIUM OXIDE 400 MG TABLET PO SCH (08:55)
[2017-02-01] MEDS: IRON POLYSACCHARIDE COMPLEX 150 MG CAPSULE PO SCH (08:55)
[2017-02-01] MEDS: ASCORBIC ACID 500 MG TABLET PO SCH (08:55)
[2017-02-01] MEDS: FOLBIC TABLET PO SCH (08:55)
[2017-02-01] MEDS: GABAPENTIN 100 MG CAPSULE PO SCH ×3 (08:55→21:49)
[2017-02-01] MEDS: FUROSEMIDE 20 MG TABLET PO SCH ×2 (08:55→10:19)
[2017-02-01] MEDS: POLYETHYL GLYCOL 3350 17gm PACKET PO SCH (08:56)
[2017-02-01] MEDS: ASPIRIN 81 MG CHEWABLE TABLET PO SCH (08:56)
[2017-02-01] MEDS: SENNA + DOCUSATE TABLET PO SCH ×2 (08:56→21:49)
[2017-02-01] MEDS: FLUTICASONE NASAL SPRAY 50mcg EA NOSTRIL SCH (08:56)
[2017-02-01] MEDS: TIMOLOL 0.5% EYE DROPS 5 ML EACH EYE SCH (08:56)
[2017-02-01] MEDS: AMLODIPINE 5 MG TABLET PO SCH ×2 (08:56→21:50)
[2017-02-01] MEDS: HYDROCODONE/APAP 5mg/325mg TABLET PO PRN (09:27)
--- NOTE | 2017-02-01 11:56 | Progress Note ---
Subjective Date: 02/01/17 Subjective: Mr. Li reports that he's not improving as fast as he'd like to. It sounds like he is still having some back pain that is limiting how much he can walk and move around. He denies any fevers, chills, N/V/D or any other new symptoms. Exam Vital Signs: Temperature 97.4 F 02/01/17 07:52 Pulse Rate 78 02/01/17 07:52 Respiratory Rate 18 02/01/17 07:52 Blood Pressure 139/71 02/01/17 07:52 Pulse Oximetry 99 02/01/17 07:52 Oxygen Delivery Method Room Air Oxygen Flow Rate 1 Height/Weight/BMI: Height 1.68 m Weight 73.4 kg Body Mass Index 25.4 - Constitutional Present: no acute distress, well nourished, well developed - Routine HEENT Exam Head: Present: normocephalic Eye: Present: EOMI ENT: Present: mucous membranes moist, dentition normal - Routine Neck Exam Present: supple - Routine Respiratory Exam Present: CTA bilaterally - Routine Cardiovascular Exam Present: RRR. Absent: murmur - Routine Abdominal Exam Present: soft, normoactive bowel sounds, non distended. Absent: tenderness, distended, guarding - Routine Extremities Exam Absent: edema - Routine Back/Spine/Pelvis Exam Back/Spine: Absent: paraspinal tenderness (he has an ice pack on it currently), erythema - Routine Skin Exam Present: dry. Absent: rash - Routine Neurological Exam Present: alert, oriented X3, CN II-XII intact - Routine Psychiatric Exam Present: normal affect, normal thought process Results - Labs CBC & Chem 7: 02/01/17 04:06 02/01/17 04:06 Impression: Sepsis secondary to post-operative lumbar wound infection. Septicemia with E. faecalis, R-ampicillin. PABLO negative. S/p I&D of lumbar wound 12/23/16, wound culture with E. faecalis S-ampicillin, CoNS in broth. S/p L5-S1 lumbar fusion with foraminotomy of L3-4 11/19/[address] Bryson. Rheumatoid arthritis on chronic prednisone. Atrial fibrillation S/p pacemaker. Hypothyroidism. Pancytopenia, likely drug-induced. Appears to be improving after stopping Ceftriaxone. Recommendation: Continue Vancomycin. Will plan to continue with IV antibiotics through . This would complete a 6-week course which would cover for osteomyelitis/ deep post-operative infection with hardware. Continue to monitor counts. Sepsis Assessment - Evaluation Sepsis screening result: No Definite Risk
--- NOTE | 2017-02-01 14:19 | Progress Note ---
<Alejandrina Ramos - Last Filed: 02/01/17 14:16> Subjective: Lee was seen after returning his room from observing the solar eclipse. He is still having quite a bit of back pain and is frustrated b/c he doesn't feel like he's recovering as quickly as he had hoped. His youngest daughter was present, and assured him that he is getting better. I reviewed PT/OT notes with them - he's walking farther and is able to more ADLs on his own, without assistance or with just minimal assistance. He's walking with his walker (pre- op baseline). He denies any SOA, chest pain, abdominal pain, n/v, dizziness. Objective Vital signs: Temperature 97.4 F 02/01/17 07:52 Pulse Rate 78 02/01/17 07:52 Respiratory Rate 18 02/01/17 07:52 Blood Pressure 139/71 02/01/17 07:52 Pulse Oximetry 99 02/01/17 07:52 Oxygen Delivery Method Room Air Oxygen Flow Rate 1 Height/Weight/BMI: Height 1.68 m Weight 73.4 kg Body Mass Index 25.4 - Constitutional Present: no acute distress, well nourished, well developed - Routine HEENT Exam ENT: Present: mucous membranes moist, oropharynx clear - Routine Respiratory Exam Present: CTA bilaterally - Routine Cardiovascular Exam Present: RRR, S1, S2 - Routine Abdominal Exam Present: normoactive bowel sounds, non tender, distended - Routine Extremities Exam Present: edema (LLE > RLE (chronic)), normal capillary refill - Routine Back/Spine/Pelvis Exam Back image: 1 - incision is healing well. No erythema, drainage, swelling. No warmth. No palpable abscesses. - Routine Musculoskeletal Exam Musculoskeletal: Present: no clubbing or cyanosis - Routine Skin Exam Present: intact, dry, warm - Routine Neurological Exam Present: alert, oriented X3, normal speech. Absent: facial asymmetry - Routine Psychiatric Exam Present: normal affect, normal thought process Results - Labs CBC & Chem 7: 02/01/17 04:06 02/01/17 04:06 Assessment and Plan (1) Enterococcus faecalis infection Current visit: Yes Status: Acute DVT Prophylaxis: Xarelto Resuscitation Status: Full Code Assessment and Plan: Assessment Sepsis secondary to post-operative lumbar wound infection. Septicemia with E. faecalis, R-ampicillin. PABLO negative. S/p I&D of lumbar wound 12/23/16, wound culture with E. faecalis S-ampicillin, CoNS in broth. S/p L5-S1 lumbar fusion with foraminotomy of L3-4 11/19/[address] Bryson. Pancytopenia, likely drug-induced Rheumatoid Arthritis Chronic HFpEF, CAD, PAD, HTN, HLD A-fib, SSS Constipation - improved Plan Medically stable. Continue vancomycin through 02/24/17. WBC continues to rebound since stopping Rocephin. Platelets are slightly lower today compared to yesterday (120). Hgb 9.7. Continue PT/OT/ST. Sepsis Assessment - Evaluation Sepsis screening result: No Definite Risk Hospital Course Summary Disclaimer: The visit summary below is not to be considered part of the above Progress Note. Hospital Course: 01/22/17 ASSESSMENT/PLAN Admit - swing bed status for IV ceftriaxone and vancomycin through 02/11; PT/OT. Sepsis secondary to Enterococcus septicemia s/p lumbar surgical wound infection -seen by Dr. Vaughan at [facility] -ceftriaxone 1 gm q24 hrs (started 01/13); vancomycin 750 mg (started 01/15) - cont through 02/11. Right PICC. -PABLO showed no vegetation -request latest labs from [facility] -consult PT/OT -wound care not necessary Constipation with abdominal distention -improving per report -continue bowel motivation Possible thrush -high risk d/t prednisone, neb treatments, and abx -start Nystatin QID Chronic HFpEF, CAD, PAD, HTN, HLD -required extra diuresis at [facility] -daily weights and measure I&O -request PABLO report -furosemide 20mg daily -spironolactone 50 mg daily -Metoprolol, amlodipine -Diet - no added salt, low fat, low cholesterol Atrial fibrillation/SSS -anticoagulated on Xarelto -continue BB -PPM Rheumatoid arthritis -immunocompromised on chronic steroids - Prednisone 5 mg MWF & 7.5 mg S,T,Th, Sat -mild erythemic rash to face/forehead -chha in [facility] Hypothyroidism -Synthroid 125 mcg daily MATT on CPAP, COPD -has been needing 1L at night -RT nebs; IS Iron def. anemia -iron started while in [place] per daughter Depression & anxiety -sertraline Allergic rhinitis -fluticasone Glaucoma -timolol maleate drops Allergies -Percocet, Haldol, Morphine, Tramadol - cause confusion/encephalopathy Advanced directives -daughter Mireille is DPOA -has a Living will -Full code. F/U appts with Dr. Boggs, Dr. Woods and Dr. Bryson will need to be rescheduled after discharge 01/23/17 [place] S/P laminectomy with infected seroma and sepsis requiring IV antibiotic therapy --> cultures with enterococcus faecalis and coag negative staph --> currently on vancomycin and rocephin, Dr. Vaughan has been seeing for ID previously --> PABLO negative Right hip pain attributed to trochanteric bursitis with recent ortho evaluation Hypercalcemia, Ca 10.2 CKD presumably, cr 1.2 today, unclear renal baseline (was 1.5 on admission here ) CAD per history, asymptomatic currently Afib, paroxysmal, rate controlled and AC with xarelto Normocytic anemia, likely ACD as well as iron deficiency, with stable Hb 10.5, on po iron Chronic steroid use on prednisone 7.5 mg/5 mg alternating days, history of RA Chronic constipation, improved Depression and anxiety, controlled on sertraline Hypothyroidism, stable on Synthroid therapy Plan/Recommendations: Continue current antibiotic therapy and monitor WBC, intermittent CRP Hold low dose lasix and monitor volume status, BUN, calcium Continue home medications for afib, RA, CAD as ordered Renal panel, CBC in AM tomorrow for surveillance Continue vanco/rocephin as ordered and monitor vanco levels Continue home medications as above for chronic conditions Plan to consult Dr. Cabrera for ID opinion and surveillance on Wednesday01/24/17 Continue Vanc and Rocephin through 02/11/17 Elevated BUN (sl improvement from yesterday) - continue to hold Lasix; encourage oral. No evidence for GI bleed that could potentially explain inc in BUN. Calcium 10 - sl improved Macrocytic anemia - check B12 & folate 01/25/17 -Dr. Cabrera recommending to continue vancomycin for a total of 6 weeks, through . -consult Speech therapy -BUN still elevated but improving - down to 50 - encourage oral fluids. Cont to hold Lasix; monitor for fl overload. -constipation - hypoactive bowel sounds and increasing distention; concern for ileus start Senna+ & MOM PRN in addition to MiraLAX; add Dulcolax suppositories PRN. KUB if sx not improving. 01/26/17 Patient and family did request to decrease medication dose 0.5-1 tab as needed for pain control. He does not feel that there is any time that he would require over 1 tab as pain is overall well controlled. We will continue to work on more aggressive bowel motivation scheduled MiraLAX, senna plus and senna Lax. Continue on IV Rocephin and vancomycin for antimicrobial coverage. It is recommended by Dr. Tequila Cabrera that patient continue Rocephin through 02/11, and vancomycin through 02/24 as this will complete a 6 week course to cover osteomyelitis. Continue to follow daily labs to monitor blood counts, renal function and electrolytes. Encourage patient to work with PT and OT for ongoing postoperative strengthening. 01/27/17 Increase bowel motivation increase MiraLAX to twice a day, increase senna lax 2 twice a day, Use MOM as needed. Continue with IV vancomycin and IV Rocephin for antimicrobial coverage. 01/28/17 Continue antimicrobial therapy - recheck CBC tomorrow due to decreasing white count. 01/29/17 Dr. Cabrera stopped ceftriaxone d/t pancytopenia. Continue vanco through 02/24/17. 01/30/17 WBC increased to 3.2, hgb 9.9, and platelets are now normal at 134. Continue Vanco per ID. Delirium - continue nonpharmacologic measures; offered psych consultation but Mireille's not sure if that would be helpful. She stated that they saw psych while at [facility] who recommended Haldol (then Lee became lethargic and had respiratory depression while on it). We talked about stopping centrally acting medication, but she would like to keep them on board to help with pain control. Continue speech therapy - cognitive linguistic therapy 2x/week - I've asked speech if they can come more frequently. 01/31/17 - 02/01/17 Continue Vancomycin. WBC with gradual increase. No f/c of signs of systemic infection. Continue activities and therapy. Speech to help with cognitive issues this week. Volume and blood pressure stable - continue CV medications. <Brenda,Nogueira D - Last Filed: 02/01/17 16:09> Objective Vital signs: Temperature 97.4 F 02/01/17 07:52 Pulse Rate 78 02/01/17 07:52 Respiratory Rate 18 02/01/17 07:52 Blood Pressure 139/71 02/01/17 07:52 Pulse Oximetry 99 02/01/17 07:52 Oxygen Delivery Method Room Air Oxygen Flow Rate 1 Height/Weight/BMI: Height 1.68 m Weight 73.4 kg Body Mass Index 25.4 Results - Labs CBC & Chem 7: 02/01/17 04:06 02/01/17 04:06 Assessment and Plan (1) Enterococcus faecalis infection Current visit: Yes Status: Acute Assessment and Plan: Assessment Sepsis secondary to post-operative lumbar wound infection. Septicemia with E. faecalis, R-ampicillin. PABLO negative. S/p I&D of lumbar wound 12/23/16, wound culture with E. faecalis S-ampicillin, CoNS in broth. S/p L5-S1 lumbar fusion with foraminotomy of L3-4 11/19/[address] Bryson. Pancytopenia, likely drug-induced Rheumatoid Arthritis Chronic HFpEF, CAD, PAD, HTN, HLD A-fib, SSS Constipation - improved Have independently interviewed and examined pt. Chart reviewed. Case discussed with CM and my ER NURSE. Care plan developed with my supervision; agree with above. Doing well-tolerating therapy. Some frustration as progress is slower than he would like. Still some pain and limitations to his back. Eating well. Stools moving. Not having ab pain or nausea. Urinating well. Breathing stable. No chest pain. No f/c. Lung: decrease breath sounds. No distress CV: regular AB: soft nt/nd +BS MSE: awake alert appropriate Plan: Continue Vancomycin - lab stable. Encourage continuation of therapy to improve functional status. Continue chronic CV medication: BP, HR, and lab stable. Hospital Course Summary Disclaimer: The visit summary below is not to be considered part of the above Progress Note.
[2017-02-01] MEDS: RIVAROXABAN 20 MG TABLET PO SCH (17:53)
[2017-02-01] MEDS: NS IV SCH (20:15)
[2017-02-01] MEDS: VANCOMYCIN IV SCH (20:15)
[2017-02-01] MEDS: SERTRALINE 50 MG TABLET PO SCH (21:49)
[2017-02-01] MEDS: FAMOTIDINE 20 MG TABLET PO SCH (21:49)
[2017-02-01] MEDS: QUETIAPINE 25 MG TABLET PO SCH (21:50)
[2017-02-01] MEDS: SALINE FLUSH 10ml SYRINGE IV PRN (21:50)
[2017-02-02] MEDS: LEVOTHYROXINE 125 MCG TABLET PO SCH (06:45)
[2017-02-02] MEDS: SALINE FLUSH 10ml SYRINGE IV PRN (06:46)
[2017-02-02] MEDS: ASCORBIC ACID 500 MG TABLET PO SCH (08:19)
[2017-02-02] MEDS: POLYETHYL GLYCOL 3350 17gm PACKET PO SCH (08:19)
[2017-02-02] MEDS: SENNA + DOCUSATE TABLET PO SCH ×2 (08:19→21:05)
[2017-02-02] MEDS: ASPIRIN 81 MG CHEWABLE TABLET PO SCH (08:19)
[2017-02-02] MEDS: FLUTICASONE NASAL SPRAY 50mcg EA NOSTRIL SCH (08:20)
[2017-02-02] MEDS: TIMOLOL 0.5% EYE DROPS 5 ML EACH EYE SCH (08:20)
[2017-02-02] MEDS: NYSTATIN 500,000 units/5 ml ORAL LIQUID PO SCH ×4 (08:20→20:20)
[2017-02-02] MEDS: AMLODIPINE 5 MG TABLET PO SCH ×2 (08:21→20:21)
[2017-02-02] MEDS: PredniSONE 5 MG TABLET PO SCH (08:21)
[2017-02-02] MEDS: FUROSEMIDE 20 MG TABLET PO SCH (08:21)
[2017-02-02] MEDS: IRON POLYSACCHARIDE COMPLEX 150 MG CAPSULE PO SCH (08:22)
[2017-02-02] MEDS: MAGNESIUM OXIDE 400 MG TABLET PO SCH (08:22)
[2017-02-02] MEDS: GABAPENTIN 100 MG CAPSULE PO SCH ×3 (08:22→20:21)
[2017-02-02] MEDS: SENNOSIDES 8.6 MG TABLET PO SCH ×2 (08:22→20:21)
[2017-02-02] MEDS: FOLBIC TABLET PO SCH (08:22)
[2017-02-02] MEDS: BUDESONIDE INH.SOLN 0.5mg/2ml NEB IH SCH ×2 (09:20→20:38)
[2017-02-02] MEDS: ALBUTEROL/IPRATROPIUM 2.5mg-0.5mg/3ml NEB AEROSOL PRN ×2 (09:20→20:38)
[2017-02-02] MEDS: HYDROCODONE/APAP 5mg/325mg TABLET PO PRN (11:57)
--- NOTE | 2017-02-02 12:21 | Progress Note ---
<Alejandrina Ramos - Last Filed: 02/02/17 12:18> Subjective: Lee's daughter Mireille was helping him with some stretching. Lee stated that this is the best he's felt. He made a great deal of progress from yesterday to today. Mireille states that he walked all the way to the rehab room with his walker , did therapy, and then walked back. This is the most he's walked at one time since before his surgery (4-5 months ago). His pain has been under much better control too - they state that the REGIONAL DIRECTOR (Shun) has helped him with posture and that has relieved some of his pain. He denies any SOA or chest pain. No abdominal pain or nausea. Has intermittent bloating, but bowels are moving and he's been eating well. Objective Vital signs: Temperature 96.6 F L 02/02/17 07:43 Pulse Rate 81 02/02/17 07:43 Respiratory Rate 18 02/02/17 09:07 Blood Pressure 127/75 02/02/17 07:43 Pulse Oximetry 100 02/02/17 09:07 Oxygen Delivery Method CPAP Oxygen Flow Rate 1 Height/Weight/BMI: Height 1.68 m Weight 74 kg Body Mass Index 25.4 - Constitutional Present: no acute distress, well nourished, well developed, thin - Routine HEENT Exam Eye: Absent: conjunctival icterus, scleral injection ENT: Present: mucous membranes moist, oropharynx clear - Routine Respiratory Exam Present: CTA bilaterally - Routine Cardiovascular Exam Present: RRR, S1, S2 - Routine Abdominal Exam Present: soft, normoactive bowel sounds, distended (minimal - improved from yesterday) - Routine Extremities Exam Present: edema (b/l) - Routine Musculoskeletal Exam Musculoskeletal: Present: moving extremities well - Routine Skin Exam Present: intact, dry, warm - Routine Neurological Exam Present: alert, oriented X3, CN II-XII intact - Routine Psychiatric Exam Present: normal affect, normal thought process, cooperative Results - Labs CBC & Chem 7: 02/02/17 04:32 02/02/17 04:32 Assessment and Plan (1) Enterococcus faecalis infection Current visit: Yes Status: Acute DVT Prophylaxis: Xarelto GI Prophylaxis: Pepcid Resuscitation Status: Full Code Assessment and Plan: Assessment Sepsis secondary to post-operative lumbar wound infection. Septicemia with E. faecalis, R-ampicillin. PABLO negative. S/p I&D of lumbar wound 12/23/16, wound culture with E. faecalis S-ampicillin, CoNS in broth. S/p L5-S1 lumbar fusion with foraminotomy of L3-4 11/19/[address] Bryson. Pancytopenia, likely drug-induced Rheumatoid Arthritis Chronic HFpEF, CAD, PAD, HTN, HLD A-fib, SSS Constipation - improved Plan Improving. Pancytopenia - follow periodically. Electrolytes are stable. Continue Vanco through 02/24 per ID. Utilize BAL hose and monitor lower extremity edema. He's on Lasix 20 mg daily - may need to give additional dose if edema worsens or if he begins to have respiratory symptoms. Sepsis Assessment - Evaluation Sepsis screening result: No Definite Risk Hospital Course Summary Disclaimer: The visit summary below is not to be considered part of the above Progress Note. Hospital Course: 01/22/17 ASSESSMENT/PLAN Admit - swing bed status for IV ceftriaxone and vancomycin through 02/11; PT/OT. Sepsis secondary to Enterococcus septicemia s/p lumbar surgical wound infection -seen by Dr. Vaughan at [facility] -ceftriaxone 1 gm q24 hrs (started 01/13); vancomycin 750 mg (started 01/15) - cont through 02/11. Right PICC. -PABLO showed no vegetation -request latest labs from [facility] -consult PT/OT -wound care not necessary Constipation with abdominal distention -improving per report -continue bowel motivation Possible thrush -high risk d/t prednisone, neb treatments, and abx -start Nystatin QID Chronic HFpEF, CAD, PAD, HTN, HLD -required extra diuresis at [facility] -daily weights and measure I&O -request PABLO report -furosemide 20mg daily -spironolactone 50 mg daily -Metoprolol, amlodipine -Diet - no added salt, low fat, low cholesterol Atrial fibrillation/SSS -anticoagulated on Xarelto -continue BB -PPM Rheumatoid arthritis -immunocompromised on chronic steroids - Prednisone 5 mg MWF & 7.5 mg S,T,Th, Sat -mild erythemic rash to face/forehead -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 anemia -iron started while in [facility] per daughter Depression & anxiety -sertraline Allergic rhinitis -fluticasone Glaucoma -timolol maleate drops Allergies -Percocet, Haldol, Morphine, Tramadol - cause confusion/encephalopathy Advanced directives -daughter Mireille is DPOA -has a Living will -Full code. F/U appts with Dr. Boggs, Dr. Woods and Dr. Bryson will need to be rescheduled after discharge 01/23/17 [place] S/P laminectomy with infected seroma and sepsis requiring IV antibiotic therapy --> cultures with enterococcus faecalis and coag negative staph --> currently on vancomycin and rocephin, Dr. Vaughan has been seeing for ID previously --> PABLO negative Right hip pain attributed to trochanteric bursitis with recent ortho evaluation Hypercalcemia, Ca 10.2 CKD presumably, cr 1.2 today, unclear renal baseline (was 1.5 on admission here ) CAD per history, asymptomatic currently Afib, paroxysmal, rate controlled and AC with xarelto Normocytic anemia, likely ACD as well as iron deficiency, with stable Hb 10.5, on po iron Chronic steroid use on prednisone 7.5 mg/5 mg alternating days, history of RA Chronic constipation, improved Depression and anxiety, controlled on sertraline Hypothyroidism, stable on Synthroid therapy Plan/Recommendations: Continue current antibiotic therapy and monitor WBC, intermittent CRP Hold low dose lasix and monitor volume status, BUN, calcium Continue home medications for afib, RA, CAD as ordered Renal panel, CBC in AM tomorrow for surveillance Continue vanco/rocephin as ordered and monitor vanco levels Continue home medications as above for chronic conditions Plan to consult Dr. Cabrera for ID opinion and surveillance on Wednesday01/24/17 Continue Vanc and Rocephin through 02/11/17 Elevated BUN (sl improvement from yesterday) - continue to hold Lasix; encourage oral. No evidence for GI bleed that could potentially explain inc in BUN. Calcium 10 - sl improved Macrocytic anemia - check B12 & folate 01/25/17 -Dr. Cabrera recommending to continue vancomycin for a total of 6 weeks, through . -consult Speech therapy -BUN still elevated but improving - down to 50 - encourage oral fluids. Cont to hold Lasix; monitor for fl overload. -constipation - hypoactive bowel sounds and increasing distention; concern for ileus start Senna+ & MOM PRN in addition to MiraLAX; add Dulcolax suppositories PRN. KUB if sx not improving. 01/26/17 Patient and family did request to decrease medication dose 0.5-1 tab as needed for pain control. He does not feel that there is any time that he would require over 1 tab as pain is overall well controlled. We will continue to work on more aggressive bowel motivation scheduled MiraLAX, senna plus and senna Lax. Continue on IV Rocephin and vancomycin for antimicrobial coverage. It is recommended by Dr. Tequila Cabrera that patient continue Rocephin through 02/11, and vancomycin through 02/24 as this will complete a 6 week course to cover osteomyelitis. Continue to follow daily labs to monitor blood counts, renal function and electrolytes. Encourage patient to work with PT and OT for ongoing postoperative strengthening. 01/27/17 Increase bowel motivation increase MiraLAX to twice a day, increase senna lax 2 twice a day, Use MOM as needed. Continue with IV vancomycin and IV Rocephin for antimicrobial coverage. 01/28/17 Continue antimicrobial therapy - recheck CBC tomorrow due to decreasing white count. 01/29/17 Dr. Cabrera stopped ceftriaxone d/t pancytopenia. Continue vanco through 02/24/17. 01/30/17 WBC increased to 3.2, hgb 9.9, and platelets are now normal at 134. Continue Vanco per ID. Delirium - continue nonpharmacologic measures; offered psych consultation but Mireille's not sure if that would be helpful. She stated that they saw psych while at [facility] who recommended Haldol (then Lee became lethargic and had respiratory depression while on it). We talked about stopping centrally acting medication, but she would like to keep them on board to help with pain control. Continue speech therapy - cognitive linguistic therapy 2x/week - I've asked speech if they can come more frequently. 01/31/17 - 02/01/17 Continue Vancomycin. WBC with gradual increase. No f/c of signs of systemic infection. Continue activities and therapy. Speech to help with cognitive issues this week. Volume and blood pressure stable - continue CV medications. <Stephanie Alaniz - Last Filed: 02/02/17 17:22> Objective Vital signs: Temperature 98.0 F 02/02/17 16:00 Pulse Rate 79 02/02/17 16:00 Respiratory Rate 16 02/02/17 16:00 Blood Pressure 123/71 02/02/17 16:00 Pulse Oximetry 97 02/02/17 16:00 Oxygen Delivery Method Room Air Oxygen Flow Rate 1 Height/Weight/BMI: Height 1.68 m Weight 74 kg Body Mass Index 25.4 Results - Labs CBC & Chem 7: 02/02/17 04:32 02/02/17 04:32 Assessment and Plan (1) Enterococcus faecalis infection Current visit: Yes Status: Acute Assessment and Plan: I have independently evaluated and examined this patient. I reviewed the chart, the patient's history, and the RECEIVING AND PROCESSING SUPERVISOR/PA's documented findings as above. We discussed and formulated the assessment and plan as above with additions as below: Doing well, reports improved ambulation today and describes being pain free. Persistent lower extremity edema-daughter interested in decreasing gabapentin to see if that helps. NAD, alert Respirations nonlabored, good airflow, breath sounds clear, Regular rhythm, S1-S2 +2 edema bilat, BAL hose on Doing well, discharge planning underway. Decrease gabapentin to 100 mg twice a day; may be able to discontinue entirely following foraminotomy/fusion. Hospital Course Summary Disclaimer: The visit summary below is not to be considered part of the above Progress Note.
[2017-02-02] MEDS: RIVAROXABAN 20 MG TABLET PO SCH (17:58)
--- NOTE | 2017-02-02 18:09 | Pharmacy Consult-Antibiotics ---
Pharmacy Consult-Vancomycin - Laboratory Information WBC 3.1 T/MM3 (4.5-11.0) L 02/02/17 04:32 BUN 31.0 MG/DL (9-20) H 02/02/17 04:32 Creatinine 1.0 MG/DL (0.8-1.5) 02/02/17 04:32 Vancomycin Trough 18.38 UG/ML (15-20) 02/01/17 20:14 - Consult Information Vancomycin treatment day 12. goal vanco trough range= 15 to 20 mcg/ml Vanco trough is within range, will continue current dose of Vancomycin 1,000 mg IV daily. Pharmacy will continue to monitor and adjust as needed Thank you for the dosing protocol, Valeria Nascimento RpH
[2017-02-02] MEDS: SERTRALINE 50 MG TABLET PO SCH (20:20)
[2017-02-02] MEDS: VANCOMYCIN IV SCH (20:21)
[2017-02-02] MEDS: QUETIAPINE 25 MG TABLET PO SCH (20:21)
[2017-02-02] MEDS: NS IV SCH (20:21)
[2017-02-02] MEDS: FAMOTIDINE 20 MG TABLET PO SCH (20:21)
[2017-02-03] MEDS: SALINE FLUSH 10ml SYRINGE IV PRN (00:33)
[2017-02-03] MEDS: LEVOTHYROXINE 125 MCG TABLET PO SCH (05:29)
[2017-02-03] MEDS: ALBUTEROL/IPRATROPIUM 2.5mg-0.5mg/3ml NEB AEROSOL PRN ×2 (07:44→18:41)
[2017-02-03] MEDS: BUDESONIDE INH.SOLN 0.5mg/2ml NEB IH SCH ×2 (07:44→18:41)
[2017-02-03] MEDS: FLUTICASONE NASAL SPRAY 50mcg EA NOSTRIL SCH (08:49)
[2017-02-03] MEDS: TIMOLOL 0.5% EYE DROPS 5 ML EACH EYE SCH (08:49)
[2017-02-03] MEDS: POLYETHYL GLYCOL 3350 17gm PACKET PO SCH (08:49)
[2017-02-03] MEDS: NYSTATIN 500,000 units/5 ml ORAL LIQUID PO SCH ×4 (08:49→21:07)
[2017-02-03] MEDS: SENNA + DOCUSATE TABLET PO SCH ×2 (08:50→21:07)
[2017-02-03] MEDS: ASPIRIN 81 MG CHEWABLE TABLET PO SCH (08:50)
[2017-02-03] MEDS: SENNOSIDES 8.6 MG TABLET PO SCH ×2 (08:50→21:06)
[2017-02-03] MEDS: FOLBIC TABLET PO SCH (08:50)
[2017-02-03] MEDS: ASCORBIC ACID 500 MG TABLET PO SCH (08:50)
[2017-02-03] MEDS: IRON POLYSACCHARIDE COMPLEX 150 MG CAPSULE PO SCH (08:51)
[2017-02-03] MEDS: MAGNESIUM OXIDE 400 MG TABLET PO SCH (08:51)
[2017-02-03] MEDS: GABAPENTIN 100 MG CAPSULE PO SCH ×2 (08:51→21:06)
[2017-02-03] MEDS: AMLODIPINE 5 MG TABLET PO SCH ×2 (08:51→21:06)
[2017-02-03] MEDS: FUROSEMIDE 20 MG TABLET PO SCH (08:51)
[2017-02-03] MEDS: PredniSONE 5 MG TABLET PO SCH (08:51)
[2017-02-03] MEDS: RIVAROXABAN 20 MG TABLET PO SCH (18:08)
--- NOTE | 2017-02-03 20:25 | Progress Note ---
Subjective: Mr. Li is doing well today. He denied dyspnea and reported only minor cough with sensation of need to clear sputum but inability to do so. His voice is slightly hoarse today and he feels like he may be getting a cold. He denied back discomfort and has been ambulating with standby assistance. Appetite is good. Objective Vital signs: Temperature 97.7 F 02/03/17 18:09 Pulse Rate 86 02/03/17 18:09 Respiratory Rate 16 02/03/17 18:46 Blood Pressure 145/77 H 02/03/17 18:09 Pulse Oximetry 99 02/03/17 18:46 Oxygen Delivery Method CPAP Oxygen Flow Rate 1 EXAM General-NAD, alert, fluent speech-slightly raspy voice today HEENT-oropharynx clear, no indication of thrush, neck supple and without palpable adenopathy Lungs-respirations nonlabored, good airflow, breath sounds clear Abd-soft, nontender Skin-lumbar incision well-healed, without erythema or drainage - Height/Weight/BMI: Height 1.68 m Weight 73.9 kg Body Mass Index 25.4 Results - Labs CBC & Chem 7: 02/02/17 04:32 02/02/17 04:32 Assessment and Plan (1) Enterococcus faecalis infection Current visit: Yes Status: Acute Assessment and Plan: Sepsis secondary to post-operative lumbar wound infection. Septicemia with E. faecalis, R-ampicillin. PALBO negative. S/p I&D of lumbar wound 12/23/16, wound culture with E. faecalis S-ampicillin, CoNS in broth. S/p L5-S1 lumbar fusion with foraminotomy of L3-4 11/19/[address] Bryson. Pancytopenia, likely drug-induced Rheumatoid Arthritis Chronic HFpEF, CAD, PAD, HTN, HLD A-fib, SSS Constipation - improved Doing well. Discharge planning underway and discussed with case management, patient, and the patient's son. Patient is interested in vancomycin at an infusion center or possibly senior care-son looking at [place]. Reassess white count/platelet count in a.m. Reassess cough tomorrow-may require increase Lasix although at present patient feels he has a minor URI. Sepsis Assessment - Evaluation Sepsis screening result: No Definite Risk Hospital Course Summary Disclaimer: The visit summary below is not to be considered part of the above Progress Note. Hospital Course: 01/22/17 ASSESSMENT/PLAN Admit - swing bed status for IV ceftriaxone and vancomycin through 02/11; PT/OT. Sepsis secondary to Enterococcus septicemia s/p lumbar surgical wound infection -seen by Dr. Vaughan at [facility] -ceftriaxone 1 gm q24 hrs (started 01/13); vancomycin 750 mg (started 01/15) - cont through 02/11. Right PICC. -PABLO showed no vegetation -request latest labs from [facility] -consult PT/OT -wound care not necessary Constipation with abdominal distention -improving per report -continue bowel motivation Possible thrush -high risk d/t prednisone, neb treatments, and abx -start Nystatin QID Chronic HFpEF, CAD, PAD, HTN, HLD -required extra diuresis at [facility] -daily weights and measure I&O -request PABLO report -furosemide 20mg daily -spironolactone 50 mg daily -Metoprolol, amlodipine -Diet - no added salt, low fat, low cholesterol Atrial fibrillation/SSS -anticoagulated on Xarelto -continue BB -PPM Rheumatoid arthritis -immunocompromised on chronic steroids - Prednisone 5 mg MWF & 7.5 mg S,T,Th, Sat -mild erythemic rash to face/forehead -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 anemia -iron started while in [facility] per daughter Depression & anxiety -sertraline Allergic rhinitis -fluticasone Glaucoma -timolol maleate drops Allergies -Percocet, Haldol, Morphine, Tramadol - cause confusion/encephalopathy Advanced directives -daughter Mireille is DPOA -has a Living will -Full code. F/U appts with Dr. Boggs, Dr. Woods and Dr. Bryson will need to be rescheduled after discharge 01/23/17 [place] S/P laminectomy with infected seroma and sepsis requiring IV antibiotic therapy --> cultures with enterococcus faecalis and coag negative staph --> currently on vancomycin and rocephin, Dr. Vaughan has been seeing for ID previously --> PABLO negative Right hip pain attributed to trochanteric bursitis with recent ortho evaluation Hypercalcemia, Ca 10.2 CKD presumably, cr 1.2 today, unclear renal baseline (was 1.5 on admission here ) CAD per history, asymptomatic currently Afib, paroxysmal, rate controlled and AC with xarelto Normocytic anemia, likely ACD as well as iron deficiency, with stable Hb 10.5, on po iron Chronic steroid use on prednisone 7.5 mg/5 mg alternating days, history of RA Chronic constipation, improved Depression and anxiety, controlled on sertraline Hypothyroidism, stable on Synthroid therapy Plan/Recommendations: Continue current antibiotic therapy and monitor WBC, intermittent CRP Hold low dose lasix and monitor volume status, BUN, calcium Continue home medications for afib, RA, CAD as ordered Renal panel, CBC in AM tomorrow for surveillance Continue vanco/rocephin as ordered and monitor vanco levels Continue home medications as above for chronic conditions Plan to consult Dr. Cabrera for ID opinion and surveillance on Wednesday01/24/17 Continue Vanc and Rocephin through 02/11/17 Elevated BUN (sl improvement from yesterday) - continue to hold Lasix; encourage oral. No evidence for GI bleed that could potentially explain inc in BUN. Calcium 10 - sl improved Macrocytic anemia - check B12 & folate 01/25/17 -Dr. Cabrera recommending to continue vancomycin for a total of 6 weeks, through . -consult Speech therapy -BUN still elevated but improving - down to 50 - encourage oral fluids. Cont to hold Lasix; monitor for fl overload. -constipation - hypoactive bowel sounds and increasing distention; concern for ileus start Senna+ & MOM PRN in addition to MiraLAX; add Dulcolax suppositories PRN. KUB if sx not improving. 01/26/17 Patient and family did request to decrease medication dose 0.5-1 tab as needed for pain control. He does not feel that there is any time that he would require over 1 tab as pain is overall well controlled. We will continue to work on more aggressive bowel motivation scheduled MiraLAX, senna plus and senna Lax. Continue on IV Rocephin and vancomycin for antimicrobial coverage. It is recommended by Dr. Tequila Cabrera that patient continue Rocephin through 02/11, and vancomycin through 02/24 as this will complete a 6 week course to cover osteomyelitis. Continue to follow daily labs to monitor blood counts, renal function and electrolytes. Encourage patient to work with PT and OT for ongoing postoperative strengthening. 01/27/17 Increase bowel motivation increase MiraLAX to twice a day, increase senna lax 2 twice a day, Use MOM as needed. Continue with IV vancomycin and IV Rocephin for antimicrobial coverage. 01/28/17 Continue antimicrobial therapy - recheck CBC tomorrow due to decreasing white count. 01/29/17 Dr. Cabrera stopped ceftriaxone d/t pancytopenia. Continue vanco through 02/24/17. 01/30/17 WBC increased to 3.2, hgb 9.9, and platelets are now normal at 134. Continue Vanco per ID. Delirium - continue nonpharmacologic measures; offered psych consultation but Mireille's not sure if that would be helpful. She stated that they saw psych while at [facility] who recommended Haldol (then Lee became lethargic and had respiratory depression while on it). We talked about stopping centrally acting medication, but she would like to keep them on board to help with pain control. Continue speech therapy - cognitive linguistic therapy 2x/week - I've asked speech if they can come more frequently. 01/31/17 - 02/01/17 Continue Vancomycin. WBC with gradual increase. No f/c of signs of systemic infection. Continue activities and therapy. Speech to help with cognitive issues this week. Volume and blood pressure stable - continue CV medications. 02/03/17 20:29 Doing well. Discharge planning underway and discussed with case management, patient, and the patient's son. Patient is interested in vancomycin at an infusion center or possibly senior care-son looking at [place]. Reassess white count/platelet count in a.m. Reassess cough tomorrow-may require increase Lasix although at present patient feels he has a minor URI.
[2017-02-03] MEDS: VANCOMYCIN IV SCH (21:02)
[2017-02-03] MEDS: NS IV SCH (21:02)
[2017-02-03] MEDS: QUETIAPINE 25 MG TABLET PO SCH (21:04)
[2017-02-03] MEDS: FAMOTIDINE 20 MG TABLET PO SCH (21:06)
[2017-02-03] MEDS: SERTRALINE 50 MG TABLET PO SCH (21:06)
[2017-02-04] MEDS: LEVOTHYROXINE 125 MCG TABLET PO SCH (06:10)
[2017-02-04] MEDS: PredniSONE 5 MG TABLET PO SCH (07:36)
[2017-02-04] MEDS: FLUTICASONE NASAL SPRAY 50mcg EA NOSTRIL SCH (09:46)
[2017-02-04] MEDS: SENNOSIDES 8.6 MG TABLET PO SCH ×2 (09:47→20:57)
[2017-02-04] MEDS: NYSTATIN 500,000 units/5 ml ORAL LIQUID PO SCH ×4 (09:47→20:55)
[2017-02-04] MEDS: SENNA + DOCUSATE TABLET PO SCH ×2 (09:47→21:36)
[2017-02-04] MEDS: MAGNESIUM OXIDE 400 MG TABLET PO SCH (09:47)
[2017-02-04] MEDS: POLYETHYL GLYCOL 3350 17gm PACKET PO SCH (09:48)
[2017-02-04] MEDS: FUROSEMIDE 20 MG TABLET PO SCH (09:48)
[2017-02-04] MEDS: AMLODIPINE 5 MG TABLET PO SCH ×2 (09:48→20:57)
[2017-02-04] MEDS: ASPIRIN 81 MG CHEWABLE TABLET PO SCH (09:48)
[2017-02-04] MEDS: ASCORBIC ACID 500 MG TABLET PO SCH (09:48)
[2017-02-04] MEDS: FOLBIC TABLET PO SCH (09:48)
[2017-02-04] MEDS: GABAPENTIN 100 MG CAPSULE PO SCH ×4 (09:50→20:55)
[2017-02-04] MEDS: IRON POLYSACCHARIDE COMPLEX 150 MG CAPSULE PO SCH (09:50)
[2017-02-04] MEDS: TIMOLOL 0.5% EYE DROPS 5 ML EACH EYE SCH (09:50)
[2017-02-04] MEDS: BUDESONIDE INH.SOLN 0.5mg/2ml NEB IH SCH ×2 (10:14→18:51)
[2017-02-04] MEDS: HYDROCODONE/APAP 5mg/325mg TABLET PO PRN (11:14)
--- NOTE | 2017-02-04 15:02 | Progress Note ---
<Alejandrina Ramos D - Last Filed: 02/04/17 14:58> Subjective: Lee is doing ok today. He's done his exercises for the day and is now relaxing in his chair. He's had a bit more pain since cutting back on the gabapentin, and now wants to go back to TID. He was constipated yesterday but that's better today. He denies any shortness of breath. Daughter, Mireille, is present. Objective Vital signs: Temperature 98.1 F 02/04/17 07:33 Pulse Rate 79 02/04/17 07:33 Respiratory Rate 12 02/04/17 10:15 Blood Pressure 129/76 02/04/17 07:33 Pulse Oximetry 98 02/04/17 10:15 Oxygen Delivery Method Room Air Oxygen Flow Rate 1 Height/Weight/BMI: Height 1.68 m Weight 74.3 kg Body Mass Index 25.4 - Constitutional Present: no acute distress, well nourished, well developed - Routine HEENT Exam ENT: Present: mucous membranes moist, oropharynx clear - Routine Respiratory Exam Present: CTA bilaterally - Routine Cardiovascular Exam Present: RRR, S1, S2 - Routine Abdominal Exam Present: normoactive bowel sounds, non tender, distended (mild) - Routine Extremities Exam Present: edema (b/l; bal hose on both legs) - Routine Skin Exam Present: intact, dry, warm - Routine Neurological Exam Present: alert, oriented X3, CN II-XII intact - Routine Psychiatric Exam Present: normal affect, normal thought process, cooperative Results - Labs CBC & Chem 7: 02/04/17 03:57 02/02/17 04:32 Assessment and Plan (1) Enterococcus faecalis infection Current visit: Yes Status: Acute Assessment and Plan: Sepsis secondary to post-operative lumbar wound infection. Septicemia with E. faecalis, R-ampicillin. PABLO negative. S/p I&D of lumbar wound 12/23/16, wound culture with E. faecalis S-ampicillin, CoNS in broth. S/p L5-S1 lumbar fusion with foraminotomy of L3-4 11/19/[address] Bryson. Pancytopenia, likely drug-induced Rheumatoid Arthritis Chronic HFpEF, CAD, PAD, HTN, HLD A-fib, SSS Constipation - improved PLAN Thrombocytopenia - WBC and hgb stable but platelets continue to decline. D/W Dr. Alaniz - may be r/t RA; consider stopping hep flushes. Cont Vanco per ID recommendations. Increase gabapentin back up to TID which controlled his pain better. Continue with bowel motivation; constipated again yesterday and he was mildly distended on exam today. Increase leg swelling; consider Lasix. Sepsis Assessment - Evaluation Sepsis screening result: No Definite Risk Hospital Course Summary Disclaimer: The visit summary below is not to be considered part of the above Progress Note. Hospital Course: 01/22/17 ASSESSMENT/PLAN Admit - swing bed status for IV ceftriaxone and vancomycin through 02/11; PT/OT. Sepsis secondary to Enterococcus septicemia s/p lumbar surgical wound infection -seen by Dr. Vaughan at [facility] -ceftriaxone 1 gm q24 hrs (started 01/13); vancomycin 750 mg (started 01/15) - cont through 02/11. Right PICC. -PABLO showed no vegetation -request latest labs from [facility] -consult PT/OT -wound care not necessary Constipation with abdominal distention -improving per report -continue bowel motivation Possible thrush -high risk d/t prednisone, neb treatments, and abx -start Nystatin QID Chronic HFpEF, CAD, PAD, HTN, HLD -required extra diuresis at [facility] -daily weights and measure I&O -request PABLO report -furosemide 20mg daily -spironolactone 50 mg daily -Metoprolol, amlodipine -Diet - no added salt, low fat, low cholesterol Atrial fibrillation/SSS -anticoagulated on Xarelto -continue BB -PPM Rheumatoid arthritis -immunocompromised on chronic steroids - Prednisone 5 mg MWF & 7.5 mg S,T,Th, Sat -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 anemia -iron started while in [facility] per daughter Depression & anxiety -sertraline Allergic rhinitis -fluticasone Glaucoma -timolol maleate drops Allergies -Percocet, Haldol, Morphine, Tramadol - cause confusion/encephalopathy Advanced directives -daughter Mireille is DPOA -has a Living will -Full code. F/U appts with Dr. Boggs, Dr. Woods and Dr. Bryson will need to be rescheduled after discharge 01/23/17 [place] S/P laminectomy with infected seroma and sepsis requiring IV antibiotic therapy --> cultures with enterococcus faecalis and coag negative staph --> currently on vancomycin and rocephin, Dr. Vaughan has been seeing for ID previously --> PABLO negative Right hip pain attributed to trochanteric bursitis with recent ortho evaluation Hypercalcemia, Ca 10.2 CKD presumably, cr 1.2 today, unclear renal baseline (was 1.5 on admission here ) CAD per history, asymptomatic currently Afib, paroxysmal, rate controlled and AC with xarelto Normocytic anemia, likely ACD as well as iron deficiency, with stable Hb 10.5, on po iron Chronic steroid use on prednisone 7.5 mg/5 mg alternating days, history of RA Chronic constipation, improved Depression and anxiety, controlled on sertraline Hypothyroidism, stable on Synthroid therapy Plan/Recommendations: Continue current antibiotic therapy and monitor WBC, intermittent CRP Hold low dose lasix and monitor volume status, BUN, calcium Continue home medications for afib, RA, CAD as ordered Renal panel, CBC in AM tomorrow for surveillance Continue vanco/rocephin as ordered and monitor vanco levels Continue home medications as above for chronic conditions Plan to consult Dr. Cabrera for ID opinion and surveillance on Wednesday01/24/17 Continue Vanc and Rocephin through 02/11/17 Elevated BUN (sl improvement from yesterday) - continue to hold Lasix; encourage oral. No evidence for GI bleed that could potentially explain inc in BUN. Calcium 10 - sl improved Macrocytic anemia - check B12 & folate 01/25/17 -Dr. Cabrera recommending to continue vancomycin for a total of 6 weeks, through . -consult Speech therapy -BUN still elevated but improving - down to 50 - encourage oral fluids. Cont to hold Lasix; monitor for fl overload. -constipation - hypoactive bowel sounds and increasing distention; concern for ileus start Senna+ & MOM PRN in addition to MiraLAX; add Dulcolax suppositories PRN. KUB if sx not improving. 01/26/17 Patient and family did request to decrease medication dose 0.5-1 tab as needed for pain control. He does not feel that there is any time that he would require over 1 tab as pain is overall well controlled. We will continue to work on more aggressive bowel motivation scheduled MiraLAX, senna plus and senna Lax. Continue on IV Rocephin and vancomycin for antimicrobial coverage. It is recommended by Dr. Tequila Cabrera that patient continue Rocephin through 02/11, and vancomycin through 02/24 as this will complete a 6 week course to cover osteomyelitis. Continue to follow daily labs to monitor blood counts, renal function and electrolytes. Encourage patient to work with PT and OT for ongoing postoperative strengthening. 01/27/17 Increase bowel motivation increase MiraLAX to twice a day, increase senna lax 2 twice a day, Use MOM as needed. Continue with IV vancomycin and IV Rocephin for antimicrobial coverage. 01/28/17 Continue antimicrobial therapy - recheck CBC tomorrow due to decreasing white count. 01/29/17 Dr. Cabrera stopped ceftriaxone d/t pancytopenia. Continue vanco through 02/24/17. 01/30/17 WBC increased to 3.2, hgb 9.9, and platelets are now normal at 134. Continue Vanco per ID. Delirium - continue nonpharmacologic measures; offered psych consultation but Mireille's not sure if that would be helpful. She stated that they saw psych while at [facility] who recommended Haldol (then Lee became lethargic and had respiratory depression while on it). We talked about stopping centrally acting medication, but she would like to keep them on board to help with pain control. Continue speech therapy - cognitive linguistic therapy 2x/week - I've asked speech if they can come more frequently. 01/31/17 - 02/01/17 Continue Vancomycin. WBC with gradual increase. No f/c of signs of systemic infection. Continue activities and therapy. Speech to help with cognitive issues this week. Volume and blood pressure stable - continue CV medications. 02/03/17 - 02/04/17 Thrombocytopenia - WBC and hgb stable but platelets continue to decline. D/W Dr. Alaniz - may be r/t RA; consider stopping hep flushes. Cont Vanco per ID recommendations. Increase gabapentin back up to TID which controlled his pain better. Continue with bowel motivation; constipated again yesterday and he was mildly distended on exam today. Increase leg swelling; consider Lasix. Discharge planning underway <Stephanie Alaniz - Last Filed: 02/04/17 19:08> Objective Vital signs: Temperature 98.4 F 02/04/17 16:43 Pulse Rate 79 02/04/17 16:43 Respiratory Rate 16 02/04/17 18:52 Blood Pressure 145/82 H 02/04/17 16:43 Pulse Oximetry 99 02/04/17 18:52 Oxygen Delivery Method CPAP Oxygen Flow Rate 1 Height/Weight/BMI: Height 1.68 m Weight 74.3 kg Body Mass Index 25.4 Results - Labs CBC & Chem 7: 02/04/17 03:57 02/02/17 04:32 Assessment and Plan (1) Enterococcus faecalis infection Current visit: Yes Status: Acute Assessment and Plan: I have independently evaluated and examined this patient. I reviewed the chart, the patient's history, and the [employer]EDING [employer] COUNSELOR/PA's documented findings as above. We discussed and formulated the assessment and plan as above with additions as below: Mr. Li reports increased fatigue today and low back pain; he did not describe URI symptoms today. Later Mireille requested that Neurontin be increased back to 3 times a day dosing as it was in the past. NAD, alert Respirations nonlabored, good airflow, breath sounds clear BAL hose on, trace edema over the right hamm, +1 right foot, +2 left foot/hamm Heparin flushes discontinued due to slowly progressive thrombocytopenia; Pepcid discontinued due to thrombocytosis/neutropenia. Daughter checking to see what prior counts have been as patient reports he chronically has low white count. Weight is up slightly-increase Lasix to 40 mg daily. Discharge plans reviewed with Mireille and case management. Hospital Course Summary Disclaimer: The visit summary below is not to be considered part of the above Progress Note.
[2017-02-04] MEDS: RIVAROXABAN 20 MG TABLET PO SCH (16:44)
[2017-02-04] MEDS: ALBUTEROL/IPRATROPIUM 2.5mg-0.5mg/3ml NEB AEROSOL PRN (18:51)
[2017-02-04] MEDS: NS IV SCH (20:55)
[2017-02-04] MEDS: VANCOMYCIN IV SCH (20:55)
[2017-02-04] MEDS: SERTRALINE 50 MG TABLET PO SCH (20:56)
[2017-02-04] MEDS: QUETIAPINE 25 MG TABLET PO SCH (20:56)
[2017-02-04] MEDS: SALINE FLUSH 10ml SYRINGE IV PRN (21:00)
[2017-02-05] MEDS: LEVOTHYROXINE 125 MCG TABLET PO SCH (06:10)
[2017-02-05] MEDS: FUROSEMIDE 20 MG TABLET PO SCH (09:08)
[2017-02-05] MEDS: FLUTICASONE NASAL SPRAY 50mcg EA NOSTRIL SCH (09:08)
[2017-02-05] MEDS: POLYETHYL GLYCOL 3350 17gm PACKET PO SCH (09:08)
[2017-02-05] MEDS: SALINE FLUSH 10ml SYRINGE IV PRN ×2 (09:08→21:19)
[2017-02-05] MEDS: GABAPENTIN 100 MG CAPSULE PO SCH ×3 (09:10→21:21)
[2017-02-05] MEDS: MAGNESIUM OXIDE 400 MG TABLET PO SCH (09:10)
[2017-02-05] MEDS: SENNOSIDES 8.6 MG TABLET PO SCH ×2 (09:10→21:20)
[2017-02-05] MEDS: AMLODIPINE 5 MG TABLET PO SCH ×2 (09:10→21:23)
[2017-02-05] MEDS: IRON POLYSACCHARIDE COMPLEX 150 MG CAPSULE PO SCH (09:10)
[2017-02-05] MEDS: ASCORBIC ACID 500 MG TABLET PO SCH (09:11)
[2017-02-05] MEDS: FOLBIC TABLET PO SCH (09:11)
[2017-02-05] MEDS: PredniSONE 5 MG TABLET PO SCH (09:11)
[2017-02-05] MEDS: HYDROCODONE/APAP 5mg/325mg TABLET PO PRN (09:12)
[2017-02-05] MEDS: SENNA + DOCUSATE TABLET PO SCH ×2 (09:13→21:22)
[2017-02-05] MEDS: ASPIRIN 81 MG CHEWABLE TABLET PO SCH (09:13)
[2017-02-05] MEDS: TIMOLOL 0.5% EYE DROPS 5 ML EACH EYE SCH (09:13)
[2017-02-05] MEDS: NYSTATIN 500,000 units/5 ml ORAL LIQUID PO SCH ×4 (09:13→21:20)
--- NOTE | 2017-02-05 09:58 | Progress Note ---
<RichardAlejandrina D - Last Filed: 02/05/17 10:07> Subjective: Lee just returned from talking a long walk. He has a mild conversational dyspnea, but adds that this is typical. After a few moments of rest he conversed easily. He denies cough/congestion. He states that his back/hip pain is minimal. He reports sleeping well here - from about 10:30 pm to 7:30 am. He denies abdominal pain or nausea. He has occasional abdominal distention. His daughter states that he looks like he's retaining fluid - he's puffy in his jaws and neck and it looks like his leg swelling is more pronounced. She's glad Dr. Alaniz increased the Lasix dose. She also brought in prior labs, which are reviewed in the PLAN section. She notes that he's had low WBC and low platelets since 2010. Objective Vital signs: Temperature 97.4 F 02/05/17 07:23 Pulse Rate 79 02/05/17 07:23 Respiratory Rate 18 02/05/17 07:23 Blood Pressure 130/71 02/05/17 07:23 Pulse Oximetry 99 02/05/17 07:23 Oxygen Delivery Method CPAP Oxygen Flow Rate 1 Height/Weight/BMI: Height 1.68 m Weight 74.9 kg Body Mass Index 25.4 - Constitutional Present: no acute distress, well nourished, well developed - Routine HEENT Exam ENT: Present: mucous membranes moist, oropharynx clear - Routine Respiratory Exam Present: CTA bilaterally - Routine Cardiovascular Exam Present: RRR, S1, S2 - Routine Abdominal Exam Present: distended. Absent: normoactive bowel sounds (hyperactive) - Routine Extremities Exam Present: edema (L foot > R), pulses intact - Routine Skin Exam Present: intact, dry, warm - Routine Neurological Exam Present: alert, oriented X3 - Routine Psychiatric Exam Present: normal affect, normal thought process, cooperative Results - Labs CBC & Chem 7: 02/04/17 03:57 02/02/17 04:32 Assessment and Plan (1) Enterococcus faecalis infection Current visit: Yes Status: Acute DVT Prophylaxis: Xarelto Resuscitation Status: Full Code Assessment and Plan: Assessment Sepsis secondary to post-operative lumbar wound infection. Septicemia with E. faecalis, R-ampicillin. PABLO negative. S/p I&D of lumbar wound 12/23/16, wound culture with E. faecalis S-ampicillin, CoNS in broth. S/p L5-S1 lumbar fusion with foraminotomy of L3-4 11/19/[address] Bryson. Pancytopenia, chronic - hx EtOH use (quit drinking a couple years ago); ?Felty' s Syndrome Rheumatoid Arthritis Chronic HFpEF, CAD, PAD, HTN, HLD A-fib, SSS Constipation - improved Plan Outside records reviewed: Consistently low since 2010, with WBC being primary concern - saw Dr. Andersen oncologist - thought counts were r/t alcohol at that time. 05/2014 - WBC 2 and platelets 74 (though this is when he was drinking "too much ") 07/2015 - WBC 4; hgb 12.3; plt 107 03/2016 - WBC 3.6; hgb 12.9; plt 91 07/2016 - hospitalized for pneumonia and sepsis: WBC 2-3.6; hgb 8.9-10.8; plt 57- 127 10/2016 - WBC 3.5, hgb 11.1, plt 96 -- this is before back surgery Daughter requests to to speak with Dr. Cabrera prior to discharge. Continue Lasix at higher dose - Mireille reports that for a while in [place] he required 60 mg daily but at home he was only on 20 mg. Sepsis Assessment - Evaluation Sepsis screening result: No Definite Risk Hospital Course Summary Disclaimer: The visit summary below is not to be considered part of the above Progress Note. Hospital Course: 01/22/17 ASSESSMENT/PLAN Admit - swing bed status for IV ceftriaxone and vancomycin through 02/11; PT/OT. Sepsis secondary to Enterococcus septicemia s/p lumbar surgical wound infection -seen by Dr. Vaughan at [facility] -ceftriaxone 1 gm q24 hrs (started 01/13); vancomycin 750 mg (started 01/15) - cont through 02/11. Right PICC. -PABLO showed no vegetation -request latest labs from [facility] -consult PT/OT -wound care not necessary Constipation with abdominal distention -improving per report -continue bowel motivation Possible thrush -high risk d/t prednisone, neb treatments, and abx -start Nystatin QID Chronic HFpEF, CAD, PAD, HTN, HLD -required extra diuresis at [facility] -daily weights and measure I&O -request PABLO report -furosemide 20mg daily -spironolactone 50 mg daily -Metoprolol, amlodipine -Diet - no added salt, low fat, low cholesterol Atrial fibrillation/SSS -anticoagulated on Xarelto -continue BB -PPM Rheumatoid arthritis -immunocompromised on chronic steroids - Prednisone 5 mg MWF & 7.5 mg S,T,Th, Sat -mild erythemic rash to face/forehead -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 anemia -iron started while in [facility] per daughter Depression & anxiety -sertraline Allergic rhinitis -fluticasone Glaucoma -timolol maleate drops Allergies -Percocet, Haldol, Morphine, Tramadol - cause confusion/encephalopathy Advanced directives -daughter Mireille is DPOA -has a Living will -Full code. F/U appts with Dr. Boggs, Dr. Woods and Dr. Bryson will need to be rescheduled after discharge 01/23/17 [place] S/P laminectomy with infected seroma and sepsis requiring IV antibiotic therapy --> cultures with enterococcus faecalis and coag negative staph --> currently on vancomycin and rocephin, Dr. Vaughan has been seeing for ID previously --> PABLO negative Right hip pain attributed to trochanteric bursitis with recent ortho evaluation Hypercalcemia, Ca 10.2 CKD presumably, cr 1.2 today, unclear renal baseline (was 1.5 on admission here ) CAD per history, asymptomatic currently Afib, paroxysmal, rate controlled and AC with xarelto Normocytic anemia, likely ACD as well as iron deficiency, with stable Hb 10.5, on po iron Chronic steroid use on prednisone 7.5 mg/5 mg alternating days, history of RA Chronic constipation, improved Depression and anxiety, controlled on sertraline Hypothyroidism, stable on Synthroid therapy Plan/Recommendations: Continue current antibiotic therapy and monitor WBC, intermittent CRP Hold low dose lasix and monitor volume status, BUN, calcium Continue home medications for afib, RA, CAD as ordered Renal panel, CBC in AM tomorrow for surveillance Continue vanco/rocephin as ordered and monitor vanco levels Continue home medications as above for chronic conditions Plan to consult Dr. Cabrera for ID opinion and surveillance on Wednesday01/24/17 Continue Vanc and Rocephin through 02/11/17 Elevated BUN (sl improvement from yesterday) - continue to hold Lasix; encourage oral. No evidence for GI bleed that could potentially explain inc in BUN. Calcium 10 - sl improved Macrocytic anemia - check B12 & folate 01/25/17 -Dr. Cabrera recommending to continue vancomycin for a total of 6 weeks, through . -consult Speech therapy -BUN still elevated but improving - down to 50 - encourage oral fluids. Cont to hold Lasix; monitor for fl overload. -constipation - hypoactive bowel sounds and increasing distention; concern for ileus start Senna+ & MOM PRN in addition to MiraLAX; add Dulcolax suppositories PRN. KUB if sx not improving. 01/26/17 Patient and family did request to decrease medication dose 0.5-1 tab as needed for pain control. He does not feel that there is any time that he would require over 1 tab as pain is overall well controlled. We will continue to work on more aggressive bowel motivation scheduled MiraLAX, senna plus and senna Lax. Continue on IV Rocephin and vancomycin for antimicrobial coverage. It is recommended by Dr. Tequila Cabrera that patient continue Rocephin through 02/11, and vancomycin through 02/24 as this will complete a 6 week course to cover osteomyelitis. Continue to follow daily labs to monitor blood counts, renal function and electrolytes. Encourage patient to work with PT and OT for ongoing postoperative strengthening. 01/27/17 Increase bowel motivation increase MiraLAX to twice a day, increase senna lax 2 twice a day, Use MOM as needed. Continue with IV vancomycin and IV Rocephin for antimicrobial coverage. 01/28/17 Continue antimicrobial therapy - recheck CBC tomorrow due to decreasing white count. 01/29/17 Dr. Cabrera stopped ceftriaxone d/t pancytopenia. Continue vanco through 02/24/17. 01/30/17 WBC increased to 3.2, hgb 9.9, and platelets are now normal at 134. Continue Vanco per ID. Delirium - continue nonpharmacologic measures; offered psych consultation but Mireille's not sure if that would be helpful. She stated that they saw psych while at [facility] who recommended Haldol (then Lee became lethargic and had respiratory depression while on it). We talked about stopping centrally acting medication, but she would like to keep them on board to help with pain control. Continue speech therapy - cognitive linguistic therapy 2x/week - I've asked speech if they can come more frequently. 01/31/17 - 02/01/17 Continue Vancomycin. WBC with gradual increase. No f/c of signs of systemic infection. Continue activities and therapy. Speech to help with cognitive issues this week. Volume and blood pressure stable - continue CV medications. 02/03/17 - 02/04/17 Thrombocytopenia - WBC and hgb stable but platelets continue to decline. Cont Vanco per ID recommendations. Increase gabapentin back up to TID which controlled his pain better. Continue with bowel motivation; constipated again yesterday and he was mildly distended on exam today. Heparin flushes discontinued due to slowly progressive thrombocytopenia; Pepcid discontinued due to thrombocytosis/neutropenia. Daughter checking to see what prior counts have been as patient reports he chronically has low white count. Weight is up slightly-increase Lasix to 40 mg daily. 02/05/17 Outside records reviewed: Consistently low since 2010, with WBC being primary concern - saw Dr. Andersen oncologist - thought counts were r/t alcohol at that time. 05/2014 - WBC 2 and platelets 74 (though this is when he was drinking "too much ") 07/2015 - WBC 4; hgb 12.3; plt 107 03/2016 - WBC 3.6; hgb 12.9; plt 91 07/2016 - hospitalized for pneumonia and sepsis: WBC 2-3.6; hgb 8.9-10.8; plt 57- 127 10/2016 - WBC 3.5, hgb 11.1, plt 96 -- this is before back surgery Continue Lasix at higher dose - Mireille reports that for a while in [place] he required 60 mg daily but at home he was only on 20 mg. <Stephanie Alaniz - Last Filed: 02/05/17 17:03> Objective Vital signs: Temperature 98.0 F 02/05/17 15:55 Pulse Rate 79 02/05/17 15:55 Respiratory Rate 20 02/05/17 15:55 Blood Pressure 128/68 02/05/17 15:55 Pulse Oximetry 97 02/05/17 15:55 Oxygen Delivery Method Room Air Oxygen Flow Rate 1 Height/Weight/BMI: Height 1.68 m Weight 74.9 kg Body Mass Index 25.4 Results - Labs CBC & Chem 7: 02/04/17 03:57 02/02/17 04:32 Assessment and Plan (1) Enterococcus faecalis infection Current visit: Yes Status: Acute Assessment and Plan: I have independently evaluated and examined this patient. I reviewed the chart, the patient's history, and the PATIENT SAFETY MANAGER/PA's documented findings as above. We discussed and formulated the assessment and plan as above with additions as below: Doing well, complains of constipation. Prior hematology studies above reviewed. Respirations are nonlabored, airflow good, breath sounds clear Distal lower extremity edema, left greater than right Discharge plans again reviewed with patient, Mireille, and case management-IRU eval initiated. Hospital Course Summary Disclaimer: The visit summary below is not to be considered part of the above Progress Note.
[2017-02-05] MEDS: BUDESONIDE INH.SOLN 0.5mg/2ml NEB IH SCH ×2 (11:50→20:40)
[2017-02-05] MEDS: ALBUTEROL/IPRATROPIUM 2.5mg-0.5mg/3ml NEB AEROSOL PRN ×2 (11:50→20:40)
[2017-02-05] MEDS ORDERED: DEXAMETHASONE 4 MG/ML INJECTION IVP ONE (13:52)
[2017-02-05] MEDS: RIVAROXABAN 20 MG TABLET PO SCH (18:22)
[2017-02-05] MEDS: NS IV SCH (21:00)
[2017-02-05] MEDS: VANCOMYCIN IV SCH (21:00)
[2017-02-05] MEDS: QUETIAPINE 25 MG TABLET PO SCH (21:21)
[2017-02-05] MEDS: SERTRALINE 50 MG TABLET PO SCH (21:22)
[2017-02-06] MEDS: LEVOTHYROXINE 125 MCG TABLET PO SCH (06:54)
[2017-02-06] MEDS: PredniSONE 5 MG TABLET PO SCH (08:57)
[2017-02-06] MEDS: BUDESONIDE INH.SOLN 0.5mg/2ml NEB IH SCH ×2 (09:10→19:15)
[2017-02-06] MEDS: NYSTATIN 500,000 units/5 ml ORAL LIQUID PO SCH (10:05)
[2017-02-06] MEDS: FOLBIC TABLET PO SCH (10:05)
[2017-02-06] MEDS: FUROSEMIDE 20 MG TABLET PO SCH (10:05)
[2017-02-06] MEDS: GABAPENTIN 100 MG CAPSULE PO SCH ×3 (10:06→21:01)
[2017-02-06] MEDS: MAGNESIUM OXIDE 400 MG TABLET PO SCH (10:06)
[2017-02-06] MEDS: AMLODIPINE 5 MG TABLET PO SCH ×2 (10:06→21:01)
[2017-02-06] MEDS: IRON POLYSACCHARIDE COMPLEX 150 MG CAPSULE PO SCH (10:06)
[2017-02-06] MEDS: FLUTICASONE NASAL SPRAY 50mcg EA NOSTRIL SCH (10:07)
[2017-02-06] MEDS: TIMOLOL 0.5% EYE DROPS 5 ML EACH EYE SCH (10:07)
[2017-02-06] MEDS: ASCORBIC ACID 500 MG TABLET PO SCH (10:15)
[2017-02-06] MEDS: ASPIRIN 81 MG CHEWABLE TABLET PO SCH (10:15)
[2017-02-06] MEDS: POLYETHYL GLYCOL 3350 17gm PACKET PO SCH (10:15)
--- NOTE | 2017-02-06 10:35 | Progress Note ---
<Emma Mendoza - Last Filed: 02/06/17 10:31> Subjective: Lee is seen today in follow up. He is up in chair, family at bedside. Reports that he is feeling fairly well. Is dealing with some constipation per pt. Chart is reviewed- some BM documented over the last several days. RN reports Miralax to be given today. Chart is reviewed for collateral information. Objective Vital signs: Temperature 97.9 F 02/06/17 08:00 Pulse Rate 72 02/06/17 08:00 Respiratory Rate 16 02/06/17 09:10 Blood Pressure 141/77 H 02/06/17 08:00 Pulse Oximetry 99 02/06/17 08:00 Oxygen Delivery Method Room Air Oxygen Flow Rate 1 Height/Weight/BMI: Height 1.68 m Weight 74.9 kg Body Mass Index 25.4 - Constitutional Present: no acute distress, well nourished, well developed, cooperative - Routine HEENT Exam Head: Present: normocephalic, atraumatic Eye: Present: EOMI, PERRL ENT: Present: mucous membranes moist - Routine Respiratory Exam Present: CTA bilaterally. Absent: rales, rhonchi, wheezes - Routine Cardiovascular Exam Present: RRR, S1, S2, no murmur - Routine Abdominal Exam Present: soft, non tender, distended (Mildly distended,soft. ). Absent: normoactive bowel sounds (Hypoactive BS x 4 quadrants.), firm, rigid - Routine Extremities Exam Present: edema (Trace LE edema. ) - Routine Musculoskeletal Exam Musculoskeletal: Present: moving extremities well - Routine Skin Exam Present: dry, warm - Routine Neurological Exam Present: alert, moving all extremities, normal speech - Routine Psychiatric Exam Present: normal affect, cooperative Results - Labs CBC & Chem 7: 02/04/17 03:57 02/02/17 04:32 Assessment and Plan (1) Enterococcus faecalis infection Current visit: Yes Status: Acute DVT Prophylaxis: Xarelto Resuscitation Status: Full Code Assessment and Plan: Assessment/Plan (SWING BED): 02/06/17 Sepsis secondary to Enterococcus septicemia s/p lumbar surgical wound infection -Ceftriaxone DC'd due to pancytopenia. Vanco thru 02/24. Dr. Cabrera following. Right PICC. -PABLO showed no vegetation ([place]) Constipation with abdominal distention -Continues to be an issue. Adjust laxatives; add probiotics. -Check KUB today. Possible thrush -Nystatin started 01/22. Stop today 02/07. Monitor for recurrence. Chronic HFpEF, CAD, PAD, HTN, HLD -Continue diuretics, beta-blockers. Monitor fluid status. Atrial fibrillation/SSS -Metoprolol/Xarelto -May need to consider DC Xarelto if pancytopenia remains an issue. Rheumatoid arthritis -immunocompromised on chronic steroids - Prednisone 5 mg MWF & 7.5 mg S,T,Th, Sat MATT on CPAP, COPD -Nocturnal O2, nebs as indicated. Iron def. anemia/Pancytopenia -Continue PO iron, Vit C. B12/Folate Ok. Assess Iron panel with next lab draw. Dr. Andersen did see the him -felt changes due to chronic ETOH use. Ceftriaxone DC'd. Continue to monitor. Depression & anxiety -sertraline/Seroquel. Did require psych assist in [facility]. Oversedation with Haldol. Known mild dementia. continue to follow. Labs scheduled for 02/08. IRU eval pending. Sepsis Assessment - Evaluation Sepsis screening result: No Definite Risk Hospital Course Summary Disclaimer: The visit summary below is not to be considered part of the above Progress Note. Hospital Course: 01/22/17 ASSESSMENT/PLAN Admit - swing bed status for IV ceftriaxone and vancomycin through 02/11; PT/OT. Sepsis secondary to Enterococcus septicemia s/p lumbar surgical wound infection -seen by Dr. Vaughan at [facility] -ceftriaxone 1 gm q24 hrs (started 01/13); vancomycin 750 mg (started 01/15) - cont through 02/11. Right PICC. -PABLO showed no vegetation -request latest labs from [facility] -consult PT/OT -wound care not necessary Constipation with abdominal distention -improving per report -continue bowel motivation Possible thrush -high risk d/t prednisone, neb treatments, and abx -start Nystatin QID Chronic HFpEF, CAD, PAD, HTN, HLD -required extra diuresis at [facility] -daily weights and measure I&O -request PABLO report -furosemide 20mg daily -spironolactone 50 mg daily -Metoprolol, amlodipine -Diet - no added salt, low fat, low cholesterol Atrial fibrillation/SSS -anticoagulated on Xarelto -continue BB -PPM Rheumatoid arthritis -immunocompromised on chronic steroids - Prednisone 5 mg MWF & 7.5 mg S,T,Th, Sat -mild erythemic rash to face/forehead -rehabilitation consultant in [facility] Hypothyroidism -Synthroid 125 mcg daily MATT on CPAP, COPD -has been needing 1L at night -RT nebs; IS Iron def. anemia -iron started while in [facility] per daughter Depression & anxiety -sertraline Allergic rhinitis -fluticasone Glaucoma -timolol maleate drops Allergies -Percocet, Haldol, Morphine, Tramadol - cause confusion/encephalopathy Advanced directives -daughter Mireille is DPOA -has a Living will -Full code. F/U appts with Dr. Boggs, Dr. Woods and Dr. Bryson will need to be rescheduled after discharge 01/23/17 [place] S/P laminectomy with infected seroma and sepsis requiring IV antibiotic therapy --> cultures with enterococcus faecalis and coag negative staph --> currently on vancomycin and rocephin, Dr. Vaughan has been seeing for ID previously --> PABLO negative Right hip pain attributed to trochanteric bursitis with recent ortho evaluation Hypercalcemia, Ca 10.2 CKD presumably, cr 1.2 today, unclear renal baseline (was 1.5 on admission here ) CAD per history, asymptomatic currently Afib, paroxysmal, rate controlled and AC with xarelto Normocytic anemia, likely ACD as well as iron deficiency, with stable Hb 10.5, on po iron Chronic steroid use on prednisone 7.5 mg/5 mg alternating days, history of RA Chronic constipation, improved Depression and anxiety, controlled on sertraline Hypothyroidism, stable on Synthroid therapy Plan/Recommendations: Continue current antibiotic therapy and monitor WBC, intermittent CRP Hold low dose lasix and monitor volume status, BUN, calcium Continue home medications for afib, RA, CAD as ordered Renal panel, CBC in AM tomorrow for surveillance Continue vanco/rocephin as ordered and monitor vanco levels Continue home medications as above for chronic conditions Plan to consult Dr. Cabrera for ID opinion and surveillance on Wednesday01/24/17 Continue Vanc and Rocephin through 02/11/17 Elevated BUN (sl improvement from yesterday) - continue to hold Lasix; encourage oral. No evidence for GI bleed that could potentially explain inc in BUN. Calcium 10 - sl improved Macrocytic anemia - check B12 & folate 01/25/17 -Dr. Cabrera recommending to continue vancomycin for a total of 6 weeks, through . -consult Speech therapy -BUN still elevated but improving - down to 50 - encourage oral fluids. Cont to hold Lasix; monitor for fl overload. -constipation - hypoactive bowel sounds and increasing distention; concern for ileus start Senna+ & MOM PRN in addition to MiraLAX; add Dulcolax suppositories PRN. KUB if sx not improving. 01/26/17 Patient and family did request to decrease medication dose 0.5-1 tab as needed for pain control. He does not feel that there is any time that he would require over 1 tab as pain is overall well controlled. We will continue to work on more aggressive bowel motivation scheduled MiraLAX, senna plus and senna Lax. Continue on IV Rocephin and vancomycin for antimicrobial coverage. It is recommended by Dr. Tequial Cabrera that patient continue Rocephin through 02/11, and vancomycin through 02/24 as this will complete a 6 week course to cover osteomyelitis. Continue to follow daily labs to monitor blood counts, renal function and electrolytes. Encourage patient to work with PT and OT for ongoing postoperative strengthening. 01/27/17 Increase bowel motivation increase MiraLAX to twice a day, increase senna lax 2 twice a day, Use MOM as needed. Continue with IV vancomycin and IV Rocephin for antimicrobial coverage. 01/28/17 Continue antimicrobial therapy - recheck CBC tomorrow due to decreasing white count. 01/29/17 Dr. Cabrera stopped ceftriaxone d/t pancytopenia. Continue vanco through 02/24/17. 01/30/17 WBC increased to 3.2, hgb 9.9, and platelets are now normal at 134. Continue Vanco per ID. Delirium - continue nonpharmacologic measures; offered psych consultation but Mireille's not sure if that would be helpful. She stated that they saw psych while at [facility] who recommended Haldol (then Lee became lethargic and had respiratory depression while on it). We talked about stopping centrally acting medication, but she would like to keep them on board to help with pain control. Continue speech therapy - cognitive linguistic therapy 2x/week - I've asked speech if they can come more frequently. 01/31/17 - 02/01/17 Continue Vancomycin. WBC with gradual increase. No f/c of signs of systemic infection. Continue activities and therapy. Speech to help with cognitive issues this week. Volume and blood pressure stable - continue CV medications. 02/03/17 - 02/04/17 Thrombocytopenia - WBC and hgb stable but platelets continue to decline. Cont Vanco per ID recommendations. Increase gabapentin back up to TID which controlled his pain better. Continue with bowel motivation; constipated again yesterday and he was mildly distended on exam today. Heparin flushes discontinued due to slowly progressive thrombocytopenia; Pepcid discontinued due to thrombocytosis/neutropenia. Daughter checking to see what prior counts have been as patient reports he chronically has low white count. Weight is up slightly-increase Lasix to 40 mg daily. 02/05/17 Outside records reviewed: Consistently low since 2010, with WBC being primary concern - saw Dr. Andersen oncologist - thought counts were r/t alcohol at that time. 05/2014 - WBC 2 and platelets 74 (though this is when he was drinking "too much ") 07/2015 - WBC 4; hgb 12.3; plt 107 03/2016 - WBC 3.6; hgb 12.9; plt 91 07/2016 - hospitalized for pneumonia and sepsis: WBC 2-3.6; hgb 8.9-10.8; plt 57- 127 10/2016 - WBC 3.5, hgb 11.1, plt 96 -- this is before back surgery Continue Lasix at higher dose - Mireille reports that for a while in [place] he required 60 mg daily but at home he was only on 20 mg. 02/06/17 10:45 Sepsis secondary to Enterococcus septicemia s/p lumbar surgical wound infection -Ceftriaxone DC'd due to pancytopenia. Vanco thru 02/24. Dr. Cabrera following. Right PICC. -PABLO showed no vegetation ([facility]) Constipation with abdominal distention -Continues to be an issue. Adjust laxatives; add probiotics. -Check KUB today. Possible thrush -Nystatin started 01/22. Stop today 02/07. Monitor for recurrence. Chronic HFpEF, CAD, PAD, HTN, HLD -Continue diuretics, beta-blockers. Monitor fluid status. Atrial fibrillation/SSS -Metoprolol/Xarelto -May need to consider DC Xarelto if pancytopenia remains an issue. Rheumatoid arthritis -immunocompromised on chronic steroids - Prednisone 5 mg MWF & 7.5 mg S,T,Th, Sat MATT on CPAP, COPD -Nocturnal O2, nebs as indicated. Iron def. anemia/Pancytopenia -Continue PO iron, Vit C. B12/Folate Ok. Assess Iron panel with next lab draw. Dr. Andersen did see the him -felt changes due to chronic ETOH use. Ceftriaxone DC'd. Continue to monitor. Depression & anxiety -sertraline/Seroquel. Did require psych assist in [place]. Oversedation with Haldol. Known mild dementia. continue to follow. Labs scheduled for 02/08. IRU eval pending. <CorbinStephanie L - Last Filed: 02/06/17 19:31> Objective Vital signs: Temperature 97.2 F 02/06/17 16:28 Pulse Rate 81 02/06/17 16:28 Respiratory Rate 18 02/06/17 19:15 Blood Pressure 134/72 02/06/17 16:28 Pulse Oximetry 97 02/06/17 19:15 Oxygen Delivery Method Room Air Oxygen Flow Rate 1 Height/Weight/BMI: Height 1.68 m Weight 76.5 kg Body Mass Index 25.4 Results - Labs CBC & Chem 7: 02/04/17 03:57 02/02/17 04:32 Assessment and Plan (1) Enterococcus faecalis infection Current visit: Yes Status: Acute Assessment and Plan: I have independently evaluated and examined this patient. I reviewed the chart, the patient's history, and the FILTER WASHER/PA's documented findings as above. We discussed and formulated the assessment and plan as above with additions as below: Mr. Li was seen with his [id number] present. He reports his weight is up but edema is better. He's had 2 bowel movements today after having difficulty early in the day. KUB was reviewed with the patient. NAD, alert Abdomen is benign/soft Edema is clearly improved in the past couple of days, +1 edema over the dorsal feet bilaterally, trace edema distal left lower leg KUB reviewed by myself-nonobstructive bowel gas pattern, no worrisome findings Senokot increased to 2 tablets twice a day to minimize future bowel problems, continue MiraLAX. Reassess labs in the morning. Await IRU evaluation. Hospital Course Summary Disclaimer: The visit summary below is not to be considered part of the above Progress Note.
[2017-02-06] MEDS: SENNOSIDES 8.6 MG TABLET PO SCH (10:55)
[2017-02-06] MEDS: LACTOBACILLUS (15B cfu) CAPSULE PO SCH ×2 (11:14→17:56)
[2017-02-06] MEDS: SENNA + DOCUSATE TABLET PO SCH ×3 (11:30→21:01)
[2017-02-06] MEDS: RIVAROXABAN 20 MG TABLET PO SCH (17:57)
[2017-02-06] MEDS: ALBUTEROL/IPRATROPIUM 2.5mg-0.5mg/3ml NEB AEROSOL PRN (19:15)
[2017-02-06] MEDS: NS FLUSH BAG 500ml IV PRN (19:52)
[2017-02-06] MEDS: VANCOMYCIN IV SCH (19:52)
[2017-02-06] MEDS: NS IV SCH (19:52)
[2017-02-06] MEDS: QUETIAPINE 25 MG TABLET PO SCH (21:02)
[2017-02-06] MEDS: SERTRALINE 50 MG TABLET PO SCH (21:03)
[2017-02-07] MEDS: LEVOTHYROXINE 125 MCG TABLET PO SCH (05:56)
--- NOTE | 2017-02-07 09:18 | XRay Report ---
Indication: Constipation PROCEDURE: XR KUB: Encounter: Initial Comparison: None Findings: Nonobstructive nonspecific bowel gas pattern. Moderate stool in the colon. Degenerative and postoperative changes in the lumbosacral spine. Lung bases are grossly clear. Impression: Nonobstructive nonspecific bowel gas pattern. .
[2017-02-07] MEDS: PredniSONE 5 MG TABLET PO SCH (09:28)
[2017-02-07] MEDS: LACTOBACILLUS (15B cfu) CAPSULE PO SCH ×2 (09:28→17:35)
[2017-02-07] MEDS: FLUTICASONE NASAL SPRAY 50mcg EA NOSTRIL SCH (09:29)
[2017-02-07] MEDS: FOLBIC TABLET PO SCH (09:29)
[2017-02-07] MEDS: ASPIRIN 81 MG CHEWABLE TABLET PO SCH (09:29)
[2017-02-07] MEDS: MAGNESIUM OXIDE 400 MG TABLET PO SCH (09:30)
[2017-02-07] MEDS: FUROSEMIDE 20 MG TABLET PO SCH (09:30)
[2017-02-07] MEDS: GABAPENTIN 100 MG CAPSULE PO SCH ×3 (09:30→21:15)
[2017-02-07] MEDS: POLYETHYL GLYCOL 3350 17gm PACKET PO SCH (09:30)
[2017-02-07] MEDS: IRON POLYSACCHARIDE COMPLEX 150 MG CAPSULE PO SCH (09:30)
[2017-02-07] MEDS: AMLODIPINE 5 MG TABLET PO SCH ×2 (09:30→20:12)
[2017-02-07] MEDS: TIMOLOL 0.5% EYE DROPS 5 ML EACH EYE SCH (09:31)
[2017-02-07] MEDS: SENNA + DOCUSATE TABLET PO SCH ×2 (09:31→20:25)
[2017-02-07] MEDS: ASCORBIC ACID 500 MG TABLET PO SCH (09:31)
--- NOTE | 2017-02-07 15:47 | Progress Note ---
Subjective: Mr. Li was seen briefly today. He reported no concerns and that his ambulating with a walker. He's not yet been evaluated for IRU. Has had several bowel movements without straining, no diarrhea. Objective Vital signs: Temperature 96.2 F L 02/07/17 08:00 Pulse Rate 79 02/07/17 08:00 Respiratory Rate 16 02/07/17 08:00 Blood Pressure 131/74 02/07/17 08:00 Pulse Oximetry 96 02/07/17 08:00 Oxygen Delivery Method Room Air Alert, NAD Respirations nonlabored Ambulating with walker with standby assistance Height/Weight/BMI: Height 1.68 m Weight 74.4 kg Body Mass Index 25.4 Results - Labs CBC & Chem 7: 02/04/17 03:57 02/02/17 04:32 Assessment and Plan (1) Enterococcus faecalis infection Current visit: Yes Status: Acute Resuscitation Status: Full Code Assessment and Plan: Assessment: Sepsis secondary to post-operative lumbar wound infection. Septicemia with E. faecalis, R-ampicillin. PABLO negative. S/p I&D of lumbar wound 12/23/16, wound culture with E. faecalis S-ampicillin, TILE ROOFER in broth. S/p L5-S1 lumbar fusion with foraminotomy of L3-4 11/19/[address] Bryson. Pancytopenia, likely drug-induced/hx EtOH Rheumatoid Arthritis Chronic HFpEF, CAD, PAD, HTN, HLD A-fib, SSS Constipation - improved Plan: Continue vancomycin, level to be checked tomorrow evening. CBC and renal function to be checked earlier in the day in addition to inflammatory markers. Continue therapies. Good response to modified bowel regimen. IRU evaluation pending. Sepsis Assessment - Evaluation Sepsis screening result: No Definite Risk Hospital Course Summary Disclaimer: The visit summary below is not to be considered part of the above Progress Note. Hospital Course: 01/22/17 ASSESSMENT/PLAN Admit - swing bed status for IV ceftriaxone and vancomycin through 02/11; PT/OT. Sepsis secondary to Enterococcus septicemia s/p lumbar surgical wound infection -seen by Dr. Vaughan at [facility] -ceftriaxone 1 gm q24 hrs (started 01/13); vancomycin 750 mg (started 01/15) - cont through 02/11. Right PICC. -PABLO showed no vegetation -request latest labs from [facility] -consult PT/OT -wound care not necessary Constipation with abdominal distention -improving per report -continue bowel motivation Possible thrush -high risk d/t prednisone, neb treatments, and abx -start Nystatin QID Chronic HFpEF, CAD, PAD, HTN, HLD -required extra diuresis at [facility] -daily weights and measure I&O -request PABLO report -furosemide 20mg daily -spironolactone 50 mg daily -Metoprolol, amlodipine -Diet - no added salt, low fat, low cholesterol Atrial fibrillation/SSS -anticoagulated on Xarelto -continue BB -PPM Rheumatoid arthritis -immunocompromised on chronic steroids - Prednisone 5 mg MWF & 7.5 mg S,T,Th, Sat -mild erythemic rash to face/forehead -clinical operations specialist in [facility] Hypothyroidism -Synthroid 125 mcg daily MATT on CPAP, COPD -has been needing 1L at night -RT nebs; IS Iron def. anemia -iron started while in [facility] per daughter Depression & anxiety -sertraline Allergic rhinitis -fluticasone Glaucoma -timolol maleate drops Allergies -Percocet, Haldol, Morphine, Tramadol - cause confusion/encephalopathy Advanced directives -daughter Mireille is DPOA -has a Living will -Full code. F/U appts with Dr. Boggs, Dr. Woods and Dr. Bryson will need to be rescheduled after discharge 01/23/17 [place] S/P laminectomy with infected seroma and sepsis requiring IV antibiotic therapy --> cultures with enterococcus faecalis and coag negative staph --> currently on vancomycin and rocephin, Dr. Vaughan has been seeing for ID previously --> PABLO negative Right hip pain attributed to trochanteric bursitis with recent ortho evaluation Hypercalcemia, Ca 10.2 CKD presumably, cr 1.2 today, unclear renal baseline (was 1.5 on admission here ) CAD per history, asymptomatic currently Afib, paroxysmal, rate controlled and AC with xarelto Normocytic anemia, likely ACD as well as iron deficiency, with stable Hb 10.5, on po iron Chronic steroid use on prednisone 7.5 mg/5 mg alternating days, history of RA Chronic constipation, improved Depression and anxiety, controlled on sertraline Hypothyroidism, stable on Synthroid therapy Plan/Recommendations: Continue current antibiotic therapy and monitor WBC, intermittent CRP Hold low dose lasix and monitor volume status, BUN, calcium Continue home medications for afib, RA, CAD as ordered Renal panel, CBC in AM tomorrow for surveillance Continue vanco/rocephin as ordered and monitor vanco levels Continue home medications as above for chronic conditions Plan to consult Dr. Cabrera for ID opinion and surveillance on Wednesday01/24/17 Continue Vanc and Rocephin through 02/11/17 Elevated BUN (sl improvement from yesterday) - continue to hold Lasix; encourage oral. No evidence for GI bleed that could potentially explain inc in BUN. Calcium 10 - sl improved Macrocytic anemia - check B12 & folate 01/25/17 -Dr. Cabrera recommending to continue vancomycin for a total of 6 weeks, through . -consult Speech therapy -BUN still elevated but improving - down to 50 - encourage oral fluids. Cont to hold Lasix; monitor for fl overload. -constipation - hypoactive bowel sounds and increasing distention; concern for ileus start Senna+ & MOM PRN in addition to MiraLAX; add Dulcolax suppositories PRN. KUB if sx not improving. 01/26/17 Patient and family did request to decrease medication dose 0.5-1 tab as needed for pain control. He does not feel that there is any time that he would require over 1 tab as pain is overall well controlled. We will continue to work on more aggressive bowel motivation scheduled MiraLAX, senna plus and senna Lax. Continue on IV Rocephin and vancomycin for antimicrobial coverage. It is recommended by Dr. Tequila Cabrera that patient continue Rocephin through 02/11, and vancomycin through 02/24 as this will complete a 6 week course to cover osteomyelitis. Continue to follow daily labs to monitor blood counts, renal function and electrolytes. Encourage patient to work with PT and OT for ongoing postoperative strengthening. 01/27/17 Increase bowel motivation increase MiraLAX to twice a day, increase senna lax 2 twice a day, Use MOM as needed. Continue with IV vancomycin and IV Rocephin for antimicrobial coverage. 01/28/17 Continue antimicrobial therapy - recheck CBC tomorrow due to decreasing white count. 01/29/17 Dr. Cabrera stopped ceftriaxone d/t pancytopenia. Continue vanco through 02/24/17. 01/30/17 WBC increased to 3.2, hgb 9.9, and platelets are now normal at 134. Continue Vanco per ID. Delirium - continue nonpharmacologic measures; offered psych consultation but Mireille's not sure if that would be helpful. She stated that they saw psych while at [facility] who recommended Haldol (then Lee became lethargic and had respiratory depression while on it). We talked about stopping centrally acting medication, but she would like to keep them on board to help with pain control. Continue speech therapy - cognitive linguistic therapy 2x/week - I've asked speech if they can come more frequently. 01/31/17 - 02/01/17 Continue Vancomycin. WBC with gradual increase. No f/c of signs of systemic infection. Continue activities and therapy. Speech to help with cognitive issues this week. Volume and blood pressure stable - continue CV medications. 02/03/17 - 02/04/17 Thrombocytopenia - WBC and hgb stable but platelets continue to decline. Cont Vanco per ID recommendations. Increase gabapentin back up to TID which controlled his pain better. Continue with bowel motivation; constipated again yesterday and he was mildly distended on exam today. Heparin flushes discontinued due to slowly progressive thrombocytopenia; Pepcid discontinued due to thrombocytosis/neutropenia. Daughter checking to see what prior counts have been as patient reports he chronically has low white count. Weight is up slightly-increase Lasix to 40 mg daily. 02/05/17 Outside records reviewed: Consistently low since 2010, with WBC being primary concern - saw Dr. Andersen oncologist - thought counts were r/t alcohol at that time. 05/2014 - WBC 2 and platelets 74 (though this is when he was drinking "too much ") 07/2015 - WBC 4; hgb 12.3; plt 107 03/2016 - WBC 3.6; hgb 12.9; plt 91 07/2016 - hospitalized for pneumonia and sepsis: WBC 2-3.6; hgb 8.9-10.8; plt 57- 127 10/2016 - WBC 3.5, hgb 11.1, plt 96 -- this is before back surgery Continue Lasix at higher dose - Mireille reports that for a while in [place] he required 60 mg daily but at home he was only on 20 mg. 02/06/17 10:45 Sepsis secondary to Enterococcus septicemia s/p lumbar surgical wound infection -Ceftriaxone DC'd due to pancytopenia. Vanco thru 02/24. Dr. Cabrera following. Right PICC. -PABLO showed no vegetation ([place]) Constipation with abdominal distention -Continues to be an issue. Adjust laxatives; add probiotics. -Check KUB today. Possible thrush -Nystatin started 01/22. Stop today 02/07. Monitor for recurrence. Chronic HFpEF, CAD, PAD, HTN, HLD -Continue diuretics, beta-blockers. Monitor fluid status. Atrial fibrillation/SSS -Metoprolol/Xarelto -May need to consider DC Xarelto if pancytopenia remains an issue. Rheumatoid arthritis -immunocompromised on chronic steroids - Prednisone 5 mg MWF & 7.5 mg S,T,Th, Sat MATT on CPAP, COPD -Nocturnal O2, nebs as indicated. Iron def. anemia/Pancytopenia -Continue PO iron, Vit C. B12/Folate Ok. Assess Iron panel with next lab draw. Dr. Andersen did see the him -felt changes due to chronic ETOH use. Ceftriaxone DC'd. Continue to monitor. Depression & anxiety -sertraline/Seroquel. Did require psych assist in [place]. Oversedation with Haldol. Known mild dementia. continue to follow. Labs scheduled for 02/08. IRU eval pending.
[2017-02-07] MEDS: BUDESONIDE INH.SOLN 0.5mg/2ml NEB IH SCH ×2 (17:23→19:35)
[2017-02-07] MEDS: SALINE FLUSH 10ml SYRINGE IV PRN (17:35)
[2017-02-07] MEDS: RIVAROXABAN 20 MG TABLET PO SCH (17:35)
[2017-02-07] MEDS: ALBUTEROL/IPRATROPIUM 2.5mg-0.5mg/3ml NEB AEROSOL PRN (19:35)
[2017-02-07] MEDS: VANCOMYCIN IV SCH (20:07)
[2017-02-07] MEDS: NS IV SCH (20:07)
[2017-02-07] MEDS: QUETIAPINE 25 MG TABLET PO SCH (20:12)
[2017-02-07] MEDS: SERTRALINE 50 MG TABLET PO SCH (20:14)
[2017-02-08] MEDS: LEVOTHYROXINE 125 MCG TABLET PO SCH (06:59)
[2017-02-08] MEDS: LACTOBACILLUS (15B cfu) CAPSULE PO SCH ×2 (09:01→16:31)
[2017-02-08] MEDS: ASPIRIN 81 MG CHEWABLE TABLET PO SCH (09:02)
[2017-02-08] MEDS: FLUTICASONE NASAL SPRAY 50mcg EA NOSTRIL SCH (09:02)
[2017-02-08] MEDS: PredniSONE 5 MG TABLET PO SCH (09:02)
[2017-02-08] MEDS: MAGNESIUM OXIDE 400 MG TABLET PO SCH (09:03)
[2017-02-08] MEDS: FUROSEMIDE 20 MG TABLET PO SCH (09:03)
[2017-02-08] MEDS: GABAPENTIN 100 MG CAPSULE PO SCH ×2 (09:03→14:22)
[2017-02-08] MEDS: FOLBIC TABLET PO SCH (09:03)
[2017-02-08] MEDS: POLYETHYL GLYCOL 3350 17gm PACKET PO SCH (09:03)
[2017-02-08] MEDS: SENNA + DOCUSATE TABLET PO SCH (09:04)
[2017-02-08] MEDS: IRON POLYSACCHARIDE COMPLEX 150 MG CAPSULE PO SCH (09:04)
[2017-02-08] MEDS: AMLODIPINE 5 MG TABLET PO SCH (09:04)
[2017-02-08] MEDS: ASCORBIC ACID 500 MG TABLET PO SCH (09:05)
[2017-02-08] MEDS: TIMOLOL 0.5% EYE DROPS 5 ML EACH EYE SCH (09:12)
--- NOTE | 2017-02-08 09:16 | Progress Note ---
Subjective Date: 02/08/17 Subjective: Mr. Li reports that he is doing well. His back pain overall is improving. He states he is walking pretty well, but there are still times when his LLE doesn't "do what he tells it to" and he feels like he might fall. Denies fever , chills, N/V/D. Appetite is good. He is waiting to hear about IRU. Exam Vital Signs: Temperature 97.1 F 02/08/17 08:00 Pulse Rate 84 02/08/17 08:00 Respiratory Rate 16 02/08/17 08:00 Blood Pressure 138/70 02/08/17 08:00 Pulse Oximetry 97 02/08/17 08:00 Oxygen Delivery Method Room Air Oxygen Flow Rate 1 Height/Weight/BMI: Height 1.68 m Weight 73.8 kg Body Mass Index 25.4 - Constitutional Present: no acute distress, well nourished, well developed - Routine HEENT Exam Head: Present: normocephalic, atraumatic Eye: Present: EOMI ENT: Present: mucous membranes moist, dentition normal - Routine Neck Exam Present: supple - Routine Respiratory Exam Present: CTA bilaterally - Routine Cardiovascular Exam Present: RRR. Absent: murmur - Routine Abdominal Exam Present: soft, normoactive bowel sounds, non distended. Absent: tenderness - Routine Extremities Exam Absent: cyanosis, clubbing, edema - Routine Skin Exam Present: intact. Absent: rash Comments: PICC site without redness - Routine Neurological Exam Present: alert, oriented X3, CN II-XII intact - Routine Psychiatric Exam Present: normal affect, normal thought process Results - Labs CBC & Chem 7: 02/08/17 04:10 02/08/17 04:10 Impression: Sepsis secondary to post-operative lumbar wound infection. Septicemia with E. faecalis, R-ampicillin. PABLO negative. S/p I&D of lumbar wound 12/23/16, wound culture with E. faecalis S-ampicillin, CoNS in broth. S/p L5-S1 lumbar fusion with foraminotomy of L3-4 11/19/[address] Bryson. Rheumatoid arthritis on chronic prednisone. Atrial fibrillation S/p pacemaker. Hypothyroidism. Pancytopenia, improving after stopping Ceftriaxone. Recommendation: Continue Vancomycin, planning to continue through 02/24/17. This would complete a 6-week course which would cover for osteomyelitis/deep post-operative infection with hardware. Continue to monitor counts. Recommend repeating blood cultures about 5-7 days after he completes his Vancomycin course. Sepsis Assessment - Evaluation Sepsis screening result: No Definite Risk
[2017-02-08] MEDS: BUDESONIDE INH.SOLN 0.5mg/2ml NEB IH SCH (09:18)
[2017-02-08] MEDS: ALBUTEROL/IPRATROPIUM 2.5mg-0.5mg/3ml NEB AEROSOL PRN (09:19)
--- NOTE | 2017-02-08 14:44 | Discharge Summary ---
<RicahrdAlejandrina rivera D - Last Filed: 02/08/17 15:52> Discharge Information Date of admission: 01/22/17 12:35 Anticipated date of discharge: 02/08/17 Attending Physician: Jero Gutierrez MD Consults: Tequila Cabrera - Discharge Diagnosis Discharge Diagnosis: Sepsis secondary to post-operative lumbar wound infection. Septicemia with E. faecalis, R-ampicillin. PABLO negative. S/p I&D of lumbar wound 12/23/16, wound culture with E. faecalis S-ampicillin, STOCKROOM KEEPER in broth. S/p L5-S1 lumbar fusion with foraminotomy of L3-4 11/19/[address] Bryson. Pancytopenia, likely drug-induced/hx EtOH - Laboratory Labs: 02/08/17 04:10 02/08/17 04:10 - Radiology Radiology: CXR 01/25/17, 01/28/17 - Right PICC in place KUB 02/06/17 - Nonobstructive, nonspecific bowel gas. History of Present Illness HPI: Lee Li is being admitted to swing bed status at [facility] for IV abx and PT/OT. Lee is an 81 y/o male who underwent transforaminal lumbar interbody fusion of L5-S1 and b/l foraminotomy of L3-L4 on 11/19/[address] Bryson. From there he went to rehab and was discharged on 12/10/16. He developed fevers and increased back pain around 12/12/16, and was admitted overnight and discharged without need of further management. He was found to have a draining seroma at the incision site on 12/22/16 and was taken back to the OR suite on 12/23/16. Cultures were negative at that time, but after several days reportedly grew out Enterococcus, which was overlooked according to Mireille, Lee's daughter/DPOA. After this admission, he was discharged back to his facility, until he developed fevers/ chills again around 01/11/17, and was admitted to [facility]. Per Mireille, he was in septic shock. He was diagnosed with E. faecalis septicemia d/t lumbar spine wound (infected seroma). CX + for coag neg staph also. He did not go back to the OR for debridement. Right sided PICC was placed for abx. Initially placed on Zosyn + vanco, as sensitivities were reported abx were changed per ID to Rocephin + Vanco for a 4-week course. He had fluid overload secondary to sepsis and hypoalbuminemia, and per Mireille was diuresed and also was given IV albumin. He's developed a "raspy voice" for the last few days , and was apparently evaluated by ENT while in [facility] - no concerning diagnosis was given. He denies any oral sores/dysphagia. He notes development of a mild erythemic rash to his face/forehead, typical of his RA, for which he takes Prednisone daily. He's had constipation and after getting Lactulose in [facility] on 01/21 had multiple BM. However, he's still bloated. He has been seeing improvement with therapy, but right hip pain is a limiting factor. 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 He denies any paresthesias. His back incision has healed well. He otherwise has seen marked improvement since abx were started. F/C have resolved, weakness is improving. Daughter describes encephalopathy, and this for the most part has resolved. However, she states that Percocet, MSO4, and Tramadol cause confusion (but he tolerates [place] well). He denies cough/congestion/dyspnea. No chest pain or abdominal pain. Denies dysuria, frequency, or incontinence. Objective Vital signs: Temperature 97.1 F 02/08/17 08:00 Pulse Rate 84 02/08/17 08:00 Respiratory Rate 15 02/08/17 09:10 Blood Pressure 138/70 02/08/17 08:00 Pulse Oximetry 99 02/08/17 09:10 Oxygen Delivery Method Room Air Oxygen Flow Rate 1 Height/Weight/BMI: Height 1.68 m Weight 73.8 kg Body Mass Index 25.4 Hospital Course This is a general summary of the patient's hospital course. For more details refer to the complete medical record. Hospital course: Date of Admission: 01/22/17 Date of Discharge: 02/08/17 Mr. Li was admitted for IV ceftriaxone and vancomycin. He has a right sided PICC line. Dr. Cabrera (ID) was consulted. Pt developed pancytopenia, initially thought to be secondary to Rocephin, and Rocephin was discontinued on 01/29/17. 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 Vancomycin stop date was extended to 02/24/17 per ID recommendations. He had some mild confusion (underlying mild dementia), especially at night, but remained safe and did not require any antipsychotics (He had an adverse reaction to Haldol while hospitalized at [place]). He also was treated for thrush and Nystatin was actually restarted on 02/08/17. Chronic HFpEF, CAD, PAD, HTN, HLD - continued on home medications. His BUN initially was held and Lasix was held and oral fluids encouraged. This gradually improved and towards the end of his hospital course we increased Lasix from 20 mg to 40 mg daily. Diet - no added salt, low fat, low cholesterol. Constipation with hx of ileus - aggressive bowel motivation; constipation resolved. PT/OT - pt showed good progress and pain improved. He also worked with speech therapy for cognitive linguistic therapy. Rheumatoid arthritis - Prednisone 5 mg MWF & 7.5 mg S,T,Th,Sat MATT on CPAP, COPD -Nocturnal O2, nebs as indicated. F/U appts with Dr. Boggs, Dr. Porter and Dr. Bryson will need to be rescheduled. Pt was discharged home with home health. Pt is going to return to [facility] for daily Vanco infusions; timing will be gradually adjusted to permit family schedule. Provided Rx for Vanco and [place]. Rx Nystatin was called in to pharmacy. Increase Lasix to 40 mg daily for now - f/u with PCP for med changes. Recheck BMP and CBC in 3 days. DVT Prophylaxis: Xarelto Discharge Plan - Med Rec/Dispo Referrals/Follow Up: Rom Porter MD [Physician] - 1 Week (APPOINTMENT WITH DR. PORTER ON 02/16/2017 AT 1:10 PM, OFFICE NUMBER [phone]) [place] Instructions: [facility] PICC Discharge Instructions, Sepsis (GEN) Additional Instructions: Please contact Dr. Boggs, Dr. Porter and Dr. Bryson for follow up appointments. FAMILY STATES THEY WILL MAKE APPOINTMENTS WITH [facility] AND [facility] Increase Lasix to 40 mg daily. Prescriptions: New Acidoph/L.bulg/Bif.b/S.thermop [Bacid Caplet] 2 cap PO BIDWM tablet Furosemide [Lasix] 40 mg PO DAILY tablet Rivaroxaban [Xarelto] 20 mg PO WS tablet Senna + Docusate [Senna Plus Tablet] 2 tab PO BID tablet Vancomycin/0.9 % Sod Chloride [Vanco 1 Gram/250 ml-0.9% NaCl] 1 gm IV DAILY # 16 plast..bag Continue Amlodipine [Norvasc] 1 tab PO BID Iron Polysaccharide Complex [Niferex] 1 cap PO DAILY PredniSONE [Deltasone] 1 tab PO 3XW Timolol 0.5% Eye Drops [Timoptic 0.5% Eye Drops] 1 drop EACH EYE DAILY Sertraline [Zoloft] 1.5 tab PO HS Quetiapine [Seroquel] 1.5 tab PO HS Metoprolol Tartrate [Lopressor] 25 mg PO BIDWM Magnesium Oxide [Magnesium] 1 tab PO DAILY Albuterol/Ipratropium [Duoneb] 1 unit AEROSOL Q4H PRN PRN Reason: Dyspnea Fluticasone Nasal [place] [Flonase] 2 spray EA NOSTRIL DAILY Famotidine [Pepcid] 1 tab PO HS Cyanocobalamin/Folic AC/Vit B6 [B Complex-Folic Acid Tablet] 1 each PO DAILY Aspirin 1 tab PO DAILY Ascorbate Calcium [Calcium Ascorbate] 1 gm PO DAILY PredniSONE [Deltasone] 7.5 mg PO 4XW Gabapentin [Neurontin] 100 mg PO TID Levothyroxine Tab [Synthroid] 125 mcg PO ACB Budesonide 0.5 mg IH BID Hydrocodone/APAP 5/325 [[place] 5/325] 0.5 - 1 tab PO Q6H PRN #16 tab MDD 4 tablets PRN Reason: Pain Discontinued Ceftriaxone [Rocephin] 1 gram IV DAILY Rivaroxaban [Xarelto] 20 mg PO WS Furosemide [Lasix] 1 tab PO DAILY Discharge Instructions/Outpatient Orders: BMP - Basic Metabolic - [facility] Time Frame: 3 Days, Location: Determined By Patient CBC w Manual Diff-[facility] Location: Determined By Patient - Disposition [facility] <Stephanie Alaniz - Last Filed: 02/08/17 18:21> Discharge Information Consults: - Laboratory Labs: 02/08/17 04:10 02/08/17 04:10 Objective Height/Weight/BMI: Height 1.68 m Weight 73.8 kg Body Mass Index 25.4 Hospital Course This is a general summary of the patient's hospital course. For more details refer to the complete medical record. Hospital course: I have independently evaluated and examined this patient. I reviewed the chart, the patient's history, and the MAILHOUSE OPERATOR/PA's documented findings as above. We discussed and formulated the assessment and plan as above with additions as below: Mr. Li was seen earlier today at which time he reported that his back was not doing badly but his left leg sometimes feels "like a noodle" and that he cannot walk without the walker. He was frustrated that he was not accepted for rehabilitation; after multiple residential options were reviewed he and family have elected to discharge home with home health. Vancomycin will be infused at [facility] this evening with trough drawn before the dose after which he will discharge. Vancomycin will continue through 02/24 as planned. Weekly CBC, BMP, CRP, and vancomycin trough will be drawn and faxed to Dr. Marjan Cabrera to monitor therapy. On examination today the patient's respirations were nonlabored and breath sounds clear. Abdomen was soft and nontender. PICC site in the right upper extremity was unremarkable. He is asked to follow-up with Dr. Porter in one week and with his back surgeon in the near future for follow-up. Please note that the correct dose for vancomycin is 1 g daily and it is currently being administered at 6 PM daily. Time spent with patient: discharge greater than 30 minutes
[2017-02-08] MEDS: NYSTATIN 500,000 units/5 ml ORAL LIQUID PO SCH ×2 (16:26→16:28)
[2017-02-08] MEDS: RIVAROXABAN 20 MG TABLET PO SCH (16:31)
[2017-02-08 16:33] VITALS: BP 136/77; PULSE 79; RESP 18; TEMP 96.7; O2SAT 96
--- NOTE | 2017-02-08 17:46 | Discharge Instructions ---
Discharge Plan - Med Rec/Dispo Referrals/Follow Up: Rom Woods MD [Physician] - 1 Week (APPOINTMENT WITH DR. WOODS ON 02/16/2017 AT 1:10 PM, OFFICE NUMBER [phone]) Additional Instructions: Please contact Dr. Boggs, Dr. Woods and Dr. Bryson for follow up appointments. FAMILY STATES THEY WILL MAKE APPOINTMENTS WITH [facility] AND [facility] Increase Lasix to 40 mg daily. Prescriptions: New Acidoph/L.bulg/Bif.b/S.thermop [Bacid Caplet] 2 cap PO BIDWM tablet Furosemide [Lasix] 40 mg PO DAILY tablet Rivaroxaban [Xarelto] 20 mg PO WS tablet Senna + Docusate [Senna Plus Tablet] 2 tab PO BID tablet Vancomycin/0.9 % Sod Chloride [Vanco 1 Gram/250 ml-0.9% NaCl] 1 gm IV DAILY # 16 plast..bag Continue Amlodipine [Norvasc] 1 tab PO BID Iron Polysaccharide Complex [Niferex] 1 cap PO DAILY PredniSONE [Deltasone] 1 tab PO 3XW Timolol 0.5% Eye Drops [Timoptic 0.5% Eye Drops] 1 drop EACH EYE DAILY Sertraline [Zoloft] 1.5 tab PO HS Quetiapine [Seroquel] 1.5 tab PO HS Metoprolol Tartrate [Lopressor] 25 mg PO BIDWM Magnesium Oxide [Magnesium] 1 tab PO DAILY Albuterol/Ipratropium [Duoneb] 1 unit AEROSOL Q4H PRN PRN Reason: Dyspnea Fluticasone Nasal [place] [Flonase] 2 spray EA NOSTRIL DAILY Famotidine [Pepcid] 1 tab PO HS Cyanocobalamin/Folic AC/Vit B6 [B Complex-Folic Acid Tablet] 1 each PO DAILY Aspirin 1 tab PO DAILY Ascorbate Calcium [Calcium Ascorbate] 1 gm PO DAILY PredniSONE [Deltasone] 7.5 mg PO 4XW Gabapentin [Neurontin] 100 mg PO TID Levothyroxine Tab [Synthroid] 125 mcg PO ACB Budesonide 0.5 mg IH BID Hydrocodone/APAP 5/325 [[place] 5/325] 0.5 - 1 tab PO Q6H PRN #16 tab MDD 4 tablets PRN Reason: Pain Discontinued Ceftriaxone [Rocephin] 1 gram IV DAILY Rivaroxaban [Xarelto] 20 mg PO WS Furosemide [Lasix] 1 tab PO DAILY Discharge Instructions/Outpatient Orders: BMP - Basic Metabolic - [facility] Time Frame: 3 Days, Location: Determined By Patient CBC w Manual Diff-[facility] Location: Determined By Patient - Disposition 86 [facility]
[2017-02-08] MEDS ORDERED: VANCOMYCIN IV SCH (18:00)
[2017-02-08] MEDS ORDERED: NS IV SCH (18:00)
== END 2017-02-08 20:05 | disposition home health service (06) | DRG 871 ==
LOC: MED → OBSVTOIN 12:35
PROVIDERS: ADMIT Internal Medicine; ATTEND Hospitalist